=== PATIENT | female | born 1935 | race Caucasian/White ===

== ENCOUNTER → 2017-07-26 15:35 | Outpatient (CLI) | payer OTHER, SELFPAY ==
[2017-07-26 17:43] LABS: Absolute Lymphocyte Count 1.98 X10^3/ul (0.83-4.51); Absolute Neutrophil Count 2.1 X10^3/uL (2.0-7.7); Basophil# 0.03 X10^3/uL; Basophil% 0.6 % (0-1); Eosinophil# 0.15 X10^3/uL; Eosinophils% 3.1 % (0-5); Hematocrit 33.5 % (37-47); Hemoglobin 10.9 g/dl (12.0-15.0); Lymphocyte # 1.98 X10^3/ul (4.0); Lymphocyte % 41.1 % (19-41); Mean Corp Hgb Conc 32.5 g/gl (32-36); Mean Corpuscular Hgb 29.5 pg (27.0-32.0); Mean Corpuscular Volume 90.5 fL (81-99); Mean Platelet Vol. 10.5 fl (6.2-12.0); Monocyte# 0.59 X10^3/uL; Monocyte% 12.2 % (0-10); Neutrophil # 2.07 X10^3/uL (2.7-7.7); Platelet Count 172 K/mm3 (150-450); RBC Distribution Width CV 14.7 % (11.6-14.6); RBC Distribution Width SD 47.7 fl (35.1-43.9); White Blood Count 4.8 K/mm3 (4.4-11.0)
[2017-07-26 17:45] LABS: POSITIVE COUNT NO; POSITIVE DIFFERENTIAL NO; POSITIVE MORPHOLOGY NO
== END ==
PROVIDERS: Visit Provider Family Medicine
DX: D72.819 Decreased white blood cell count, unspecified (principal); D61.818 Other pancytopenia
CPT/HCPCS: 36415; 85025

== ENCOUNTER → 2017-08-26 06:34 | Outpatient (CLI) | payer OTHER, SELFPAY ==
--- NOTE | 2017-08-26 11:45 | STRESSREP ---
Stress Test Report Pharmacologic myocardial perfusion stress test. 82-year-old lady with a history of chest pain. Stress protocol: Resting EKG demonstrates normal sinus rhythm rate of 70 bpm. Resting blood pressure is 152/74 mmHg. 0.4 mg of regadenoson was infused per usual protocol followed by rapid intravenous saline flush injection. At rest there were no ST ST wave changes noted suggest ischemia at peak infusion no ST or T-wave changes were noted suggest ischemia. Resting blood pressure is 152/74 with a final blood pressure 142/70. No clinical angina was noted. Myocardial perfusion protocol. 11.4 mCi of technetium 99m sestamibi was injected at rest. 0.4 mg regadenoson was infused per usual protocol at peak infusion 33.8 mCi of technetium 99m sestamibi was injected. Stress images were obtained. Stress and rest images were reconstructed and compared in the short axis vertical long and horizontal long axis. Gated images were also obtained. Perfusion SPECT analysis: Review of the stress images demonstrate a normal cardiac silhouette size. There is uniform uptake of tracer noted in all areas of the myocardium. The resting images similarly demonstrate normal uptake of tracer noted in all areas of the myocardium. No previous infarct is noted no ischemia is present. Gated SPECT analysis: The gated ejection fraction is over 80%. Conclusion: Normal pharmacologic myocardial perfusion stress test. Preserved ejection fraction.
== END ==
PROVIDERS: Family Provider Family Medicine; PCP Family Medicine; Visit Provider Family Medicine
DX: I24.8 Other forms of acute ischemic heart disease (principal)
CPT/HCPCS: 78452; 93017; A9500; A4216; J2785

== ENCOUNTER 2017-11-25 19:10 | Observation (INO) | payer OTHER, SELFPAY ==
--- NOTE | 2017-11-25 11:34 | EKG12_ITS ---
Test Reason : MORNING EKG Blood Pressure : / mmHG Vent. Rate : 062 BPM Atrial Rate : 062 BPM P-R Int : 160 ms QRS Dur : 086 ms QT Int : 438 ms P-R-T Axes : 071 061 050 degrees QTc Int : 444 ms Normal sinus rhythm Normal ECG When compared with ECG of 24-JUN-2017 05:02, No significant change was found Confirmed by DENILSON CASTILLO, DAVID ([id number]), editor department SANDRA HICKMAN ([id number]) on 12/09/2017 10:45:53 AM Referred By: Confirmed By:DAVID OREILLY MD
--- NOTE | 2017-11-25 19:26 | CT_ITS ---
STUDY: CT BRAIN WITHOUT CONTRAST REASON FOR EXAM: Female, 82 years old. Syncope. RADIATION DOSAGE (If Supplied By Facility): CTDIvol = ( 44.99 ) mGy, DLP = ( 812.98 ) mGycm TECHNIQUE: Transaxial CT imaging of the brain was performed without administration of intravenous contrast material. Individualized dose optimization techniques were used for this CT. COMPARISON: July 05, 2015. FINDINGS: Normal soft tissue structures. Normal calvarium. There is arthritic change of the temporomandibular joints on the right more than the left. There is mild cerebral atrophy with widening of the extra-axial spaces and ventricular dilatation. Normal white matter tracts of the cerebral hemispheres. Normal basal ganglia and thalami. Normal brainstem. Normal cerebellum. There is no intracranial hemorrhage. There are no findings of an acute ischemic infarction. Normal visualized paranasal sinuses. CT/Brain/Head without Contrast IMPRESSION: Chronic involutional changes of the brain. No hemorrhage. Electronically Signed: Félix Gaviria MD at 8:53 EDT , Service support ,
--- NOTE | 2017-11-25 19:41 | RAD_ITS ---
STUDY: X-RAY CHEST REASON FOR EXAM: Female, 82 years old. Fall, found unresponsive TECHNIQUE: Single AP portable view of the chest. COMPARISON: None. FINDINGS: monitor and storage bin tender leads are present. There is a slightly prominent interstitial pattern of the lungs. Normal size heart. Normal mediastinum and nadeem. Normal visualized pulmonary arteries. There are calcified plaques of the aortic arch. There is a mild thoracic dextroscoliosis. Normal visualized ribs, clavicles, and shoulders. There is no demonstrated abnormality of the visualized soft tissue structures of the upper abdomen. RAD/Chest 1 View (Portable) IMPRESSION: Slightly prominent interstitial pattern of the lungs. Calcified plaques of the aortic arch. Mild thoracic dextro scoliosis. Electronically Signed: Ross Garrett MD at 20:05 EDT , Service support ,
--- NOTE | 2017-11-26 07:47 | DT_ITS ---
This patient was seen during an EMR downtime November 22, 2017 - November 29, 2017. This patient may have a combination of paper and electronic documentation or all paper documentation. All documentation is viewable within the e-chart portion of [facility] for each patient visit.
--- NOTE | 2017-11-26 11:39 | EKG12_ITS ---
Test Reason : SYNCOPE Blood Pressure : / mmHG Vent. Rate : 065 BPM Atrial Rate : 065 BPM P-R Int : 158 ms QRS Dur : 090 ms QT Int : 424 ms P-R-T Axes : 080 050 050 degrees QTc Int : 440 ms Normal sinus rhythm Normal ECG When compared with ECG of 24-JUN-2017 05:02, No significant change was found Confirmed by DENILSON CASTILLO, DAVID ([id number]), news assignment editor SANDRA HICKMAN ([id number]) on 12/09/2017 10:47:38 AM Referred By: SAY/ELENA Confirmed By:DAVID OREILLY MD
[2017-11-27 12:06] LABS: Lactic Acid 0.8 mmol/L (0.4-2.0)
[2017-11-27 12:08] LABS: Bacteria 0 SEEN /hpf (None Seen); Color, Urine Yellow (Yellow); Glucose, Dipstick NEGATIVE (Normal); Ketone-Dipstick 15 mg/dl (Negative); Leukocyte Esterase-Dipstick 25 /ul (Negative); Nitrite-Dipstick Negative (Negative); Occult Blood-Urine Negative /ul (Negative); Protein-Dipstick 30 mg/dl (Negative); Red Blood Cells-Urine 0 SEEN /hpf (0-5); Specific Gravity, Urine 1.015 (1.002-1.030); Squamous Epithelial Cells - UA 0 SEEN /hpf (5-10); Urine Bilirubin Dipstick Negative (Negative); Urine Clarity Clear (Clear); Urine Urobilinogen Normal (Normal); White Blood Cells 0-5 SEEN /hpf (0-5)
[2017-11-27 12:09] LABS: Hyaline Cast 5-10 SEEN /lpf (0-5); Mucous, Urine RARE /hpf (<or=2+)
[2017-11-27 12:10] LABS: BUN 17 mg/dL (7-18); BUN/Creat Ratio 16.5 RATIO (10-20); Creatinine, Serum 1.03 mg/dL (0.55-1.02); EST Glomerular Filtration Rate 55 mL/min (>60); Est Glom Filt Rate - Afr Amer 67 mL/min (>60); Glucose 103 mg/dL (74-106)
[2017-11-27 12:11] LABS: ALB/GLOB Ratio 0.9 RATIO (0.9-2.4); AST(SGOT) 21 U/L (15-37); Alanine Aminotransfer ALT/SGPT 24 U/L (13-56); Alkaline Phosphatase 107 U/L (45-117); Anion Gap 13 (5-15); Calcium,Total 9.2 mg/dL (8.5-10.1); Chloride 102 mmol/L (98-107); Globulin 4.3 g/dL (2.2-4.2); Lactic Acid 3.2 mmol/L (0.4-2.0); Potassium 3.5 mmol/L (3.5-5.1); Protein, Total 8.3 g/dL (6.4-8.2); Sodium Level 139 mmol/L (136-145)
[2017-11-27 13:51] LABS: Hematocrit 35.6 % (37-47); Hemoglobin 11.9 g/dl (12.0-15.0); Mean Corp Hgb Conc 33.4 g/gl (32-36); Mean Corpuscular Hgb 29.5 pg (27.0-32.0); Mean Corpuscular Volume 88.1 fL (81-99); Mean Platelet Vol. 10.7 fl (6.2-12.0); POSITIVE COUNT NO; POSITIVE DIFFERENTIAL NO; POSITIVE MORPHOLOGY NO; Platelet Count 222 K/mm3 (150-450); RBC Distribution Width CV 14.4 % (11.6-14.6); RBC Distribution Width SD 46.6 fl (35.1-43.9); Red Blood Count 4.04 M/mm3 (4.2-5.4); White Blood Count 6.2 K/mm3 (4.4-11.0)
[2017-11-27 13:52] LABS: Absolute Lymphocyte Count 2.01 X10^3/ul (0.83-4.51); Absolute Neutrophil Count 3.4 X10^3/uL (2.0-7.7); Basophil# 0.04 X10^3/uL; Basophil% 0.6 % (0-1); Eosinophil# 0.11 X10^3/uL; Eosinophils% 1.8 % (0-5); Lymphocyte # 2.01 X10^3/ul (4.0); Lymphocyte % 32.2 % (19-41); Monocyte# 0.69 X10^3/uL; Monocyte% 11.1 % (0-10); Neutrophil # 3.37 X10^3/uL (2.7-7.7)
[2017-11-27 13:53] LABS: International Normalized Ratio 0.9; Partial Thromboplast Time 31.4 Seconds (24.1-36.2); Prothrombin Time (Protime)PT. 11.9 SECONDS (11.7-14.9)
[2017-11-29 17:09] LABS: White Blood Count 5.3 K/mm3 (4.4-11.0)
[2017-11-29 17:10] LABS: Hematocrit 30.9 % (37-47); Hemoglobin 10.2 g/dl (12.0-15.0); Mean Corpuscular Volume 90.9 fL (81-99); Mean Platelet Vol. 10.9 fl (6.2-12.0); Platelet Count 200 K/mm3 (150-450); RBC Distribution Width CV 14.3 % (11.6-14.6); RBC Distribution Width SD 46.1 fl (35.1-43.9); Scan Indicated on CBC? Y/N NO
[2017-11-29 22:56] LABS: Anion Gap 7 (5-15); BUN 13 mg/dL (7-18); BUN/Creat Ratio 18.8 RATIO (10-20); Calcium,Total 8.4 mg/dL (8.5-10.1); Chloride 110 mmol/L (98-107); Cholesterol 269 mg/dL (200); Creatinine, Serum 0.69 mg/dL (0.55-1.02); EST Glomerular Filtration Rate 87 mL/min (>60); Est Glom Filt Rate - Afr Amer 105 mL/min (>60); Glucose 96 mg/dL (74-106); High Density Lipoprotein 74 mg/dL; Magnesium 2.4 mg/dL (1.6-2.6); Potassium 3.8 mmol/L (3.5-5.1); Sodium Level 143 mmol/L (136-145); Triglycerides 64 mg/dL; Very Low Density Lipoprotein 13 mg/dL (5-40)
== END 2017-11-26 20:40 | disposition home or self-care (01) ==
LOC: ED 11-26 07:46 → MS3 11-26 07:49
PROVIDERS: Admitting Provider Family Medicine; Emergency Provider Emergency Medicine; Family Provider Family Medicine; PCP Family Medicine; Visit Provider Family Medicine
DX: R55 Syncope and collapse (principal); R53.1 Weakness; E86.0 Dehydration; E87.2 Acidosis; F41.9 Anxiety disorder, unspecified; K21.9 Gastro-esophageal reflux disease without esophagitis; M16.7 Other unilateral secondary osteoarthritis of hip; E43 Unspecified severe protein-calorie malnutrition; K44.9 Diaphragmatic hernia without obstruction or gangrene
CPT/HCPCS: 36415; 70450; 71045; 80048; 80053; 80061; 81001; 83605; 83735; 84484; 85025; 85027; 85610; 85730; 87040; 87086; 93005; 96361; 96372; 96374; 97162; 97166; 97802; 99218; 99284; J7030; A4216; G0378; J2405

== ENCOUNTER 2018-01-12 07:09 | Inpatient (IN) | payer SELFPAY, OTHER ==
[2017-12-29 10:15] VITALS: BP 150/79; PULSE 66; RESP 16; TEMP 37.1; O2SAT 97; BMI 21.5
[2017-12-29 11:31] LABS: International Normalized Ratio 0.9; Prothrombin Time (Protime)PT. 12.2 SECONDS (11.7-14.9)
[2017-12-29 11:32] LABS: Partial Thromboplast Time 38.4 Seconds (24.1-36.2)
[2017-12-29 11:34] LABS: Absolute Lymphocyte Count 1.52 X10^3/ul (0.83-4.51); Basophil# 0.05 X10^3/uL; Basophil% 1.2 % (0-1); Eosinophils% 2.5 % (0-5); Hematocrit 34.9 % (37-47); Hemoglobin 11.3 g/dl (12.0-15.0); Lymphocyte # 1.52 X10^3/ul (4.0); Lymphocyte % 37.8 % (19-41); Mean Corp Hgb Conc 32.4 g/gl (32-36); Mean Corpuscular Hgb 29.3 pg (27.0-32.0); Mean Corpuscular Volume 90.4 fL (81-99); Mean Platelet Vol. 10.7 fl (6.2-12.0); Neutrophil # 1.95 X10^3/uL (2.7-7.7); Neutrophil % 48.5 % (47-70); Platelet Count 177 K/mm3 (150-450); RBC Distribution Width CV 14.5 % (11.6-14.6); RBC Distribution Width SD 47.9 fl (35.1-43.9); Red Blood Count 3.86 M/mm3 (4.2-5.4)
[2017-12-29 11:39] LABS: POSITIVE COUNT NO; POSITIVE DIFFERENTIAL NO; POSITIVE MORPHOLOGY NO
[2017-12-29 11:51] LABS: AST(SGOT) 20 U/L (15-37); Alanine Aminotransfer ALT/SGPT 22 U/L (13-56); Albumin, Serum 3.7 g/dL (3.2-5.0); Alkaline Phosphatase 84 U/L (45-117); Anion Gap 7 (5-15); BUN 10 mg/dL (7-18); BUN/Creat Ratio 14.7 RATIO (10-20); Bilirubin, Direct 0.08 mg/dL (0.00-0.30); Chloride 105 mmol/L (98-107); Creatinine, Serum 0.68 mg/dL (0.55-1.02); EST Glomerular Filtration Rate 88 mL/min (>60); Est Glom Filt Rate - Afr Amer 106 mL/min (>60); Globulin 4.2 g/dL (2.2-4.2); Glucose 91 mg/dL (74-106); Potassium 4.1 mmol/L (3.5-5.1); Protein, Total 7.9 g/dL (6.4-8.2); Sodium Level 142 mmol/L (136-145)
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
--- NOTE | 2018-01-07 13:31 | CASEMGMT ---
[place] CM preop phone call. Intro role of CM to patient via home phone. Pt is scheduled for Hip Replacement on 01/12/18. DC PLAN: Home with Outpt Therapy unless PT/OT recommends otherwise. DME: walker, cane Pt states she lives in 2 story home, has hand rails on stairs. and daughter are available and able to assist on dc. They will have transportation to therapy, however she does not know where therapy will be completed yet. Swapnil MALONEYN RN ACM
[2018-01-12] VITALS (10 sets, daily range): BP systolic 128–176; BP diastolic 65–88; PULSE 68–95; RESP 16–18; TEMP 36.4–37.3; O2SAT 96–100; BMI 21.5
[2018-01-12] MEDS: Acetaminophen 500 MG Tablet 1000 MG PO ×3 (07:56→21:19)
[2018-01-12] MEDS: oxyCODONE HCl Cr 10 MG Tablet PO (07:56)
[2018-01-12] MEDS: Lactated Ringers 1,000 ML 999 ML IV (08:15)
--- NOTE | 2018-01-12 08:43 | RAD_ITS ---
STUDY: X-RAY - PELVIS AND LEFT HIP REASON FOR EXAM: Female, 82 years old. Left hip replacement TECHNIQUE: Radiological exam, hip, unilateral, with pelvis when performed; 2 or 3 views. 3 intraoperative views COMPARISON: 12/30/2016 FINDINGS: 3 limited intraoperative C-arm films were performed of the left hip as patient is undergoing replacement surgery. Components demonstrate anatomic alignment. RAD/Hip 1 view with Pelvis IMPRESSION: 3 limited views of the left hip show anatomic alignment of components during hip replacement surgery Electronically Signed: Ted Campuzano MD at 15:01 EDT , Service support ,
[2018-01-12] MEDS: Heparin 10,000 UNITS/10 ML Vial 10000 UNITS (09:09)
--- NOTE | 2018-01-12 10:20 | OP.PCM_ITS ---
Report of Operation Date of Procedure: 01/12/18 Pre-Operative Diagnosis: Left hip primary osteoarthritis Post-Operative Diagnosis: Left hip primary osteoarthritis Surgery/Procedure Performed:: left DA CLAUDETTE Description of Surgical Findings:: stable hip with equal leg lengths furniture associate: Akhil Duvall Type of Anesthesia:: General Anesthesiologist: Juan Pablo Mason Special Medications: 2 g Ancef, 1 g TXA at incision, 1 g TXA closure, 10 mg Decadron, joint cocktail (5 mg Duramorph, 30 mL of 0.5% Ropivicaine, 1000 units of epinephrine, 30 mg of Toradol) Specimen's removed: Bony cuts Estimated Blood Loss (mL): 200 Fluids Replaced: 1300 ml crystalloin Description of Procedure: Components used: 1. Accolade 2 Jessica femoral stem size 2 127? 2. [place] trident acetabular shell size 48 mm 3. Jessica X3 polyethylene D 4. Jessica Biolox delta 36mm, -2.5mm femoral head Brief history operative indications: 82 yo F who failed conservative measures for their hip osteoarthritis. X-rays were consistent with osteoarthritis including joint space narrowing, osteophyte formation and subchondral cysts. Total hip replacement was discussed with the patient with risks and benefits including but not limited to blood loss, DVTs, PEs, neurovascular damage, dislocation, general risks of anesthesia including loss of life. Patient demonstrated an understanding medical clearance is obtained the patient was consented for surgery. Procedure: On the date of procedure the patient's L hip was marked in the preoperative area. Patient was then taken back to the operating room where anesthesia assumed control of the C-spine and airway and administered anesthetic. Patient was transferred to the operating table and placed in the supine position. The hips were placed at the break of the bed and a sacral bump was placed. The L lower extremity was then prepped out in a sterile fashion using chlorhexidine while the surgeon scrubbed. The PA was vital in the positioning of the patient. Upon reentering the room the L lower extremity was draped in the standard orthopedic fashion and the incision was marked. A timeout was called and everyone agreed upon the side, the site, the procedure be performed, antibody given, and patient's identity. At this time incision was made through skin, subcutaneous tissue, and fat down to fascia. The fascia was then incised and the TFL was retracted laterally. A retractor was placed on the lateral border of the femoral neck. Attention was directed to the inferior portion of the approach and all crossing vessels were identified and appropriately coagulated. A retractor was then placed on the medial portion of the femoral neck. The anterior capsule was then cleared of all soft tissue and then H shaped capsulotomy was made. The retractors were then placed inside the capsule. The femoral neck was identified and a cleanup cut was made. At this time a power corkscrew was used to remove the femoral head. Attention was then turned toward the acetabulum where the soft tissues were appropriately retracted and the acetabulum was sequentially reamed to 49 mm. A 50 mm cup was then selected and impacted into place. Acetabular liner was impacted into place and locking mechanism was verified. The position of the acetabular cup was then verified under live fluoroscopy. Attention was then turned to the femur. Soft tissue releases on the medial and lateral femoral neck were appropriately done, the leg was externally rotated and lateralized. A Bo retractor was placed medially and proximally to the greater trochanter this allowed appropriate visualization and exposure of the femoral canal. Rongeour was then used to remove excess lateral bone. A canal finder and entry broach were used to open the proximal canal. Once we verified we were down the femoral canal we subsequently broached up to a size 2 femur. The appropriate neck was placed in the previously selected head was trialed with a -2.5 mm neck. Traction was pulled and the hip was reduced with internal rotation. Once it was appropriately reduced and stability was checked. There was minimal shuck, equal leg lengths and appropriate stability with hyperextension and external rotation as well as with 90? flexion and internal rotation. Fluoroscopy was then also used to verify the position of the components and leg lengths using the contralateral side for comparison. The trial components were then dislocated the proximal femur was again exposed and the components were removed from the wound. The final components were verified and opened. The wound was copiously irrigated out with normal saline. The acetabulum was checked for any residual debris. The final components were placed and impacted. Traction and internal rotation were again used to reduce the hip. After adequate reduction the hip remained stable with appropriate leg lengths. The final components were once again checked with live fluoroscopy and were found to be satisfactory. The wound was then copiously irrigated with normal saline once more, and hemostasis was obtained. Closure was then done using #1 Vicryl runner to close the fascia. A 2-0 vicryl interuppted sutures were used to close the subcutaneous skin. A 3-0 Monocryl and Steri-Strips were used for final skin closure. A Silverlon dressing was placed. Patient was awakened by anesthesia and transferred to the [facility]. Patient was then transferred to the PACU for recovery. Postoperative plan: Patient will get 24 hours postop antibiotics. Patient will get in-house physical therapy and will be weight-bear as tolerated. Patient will follow up in office in 2 weeks for a wound check and x-rays. Patient is a hemophiliac. Aggressive hemostasis was performed during surgery. We also used the Cell Saver. Based on risk assessment I have elected not to anticoagulate the patient postoperatively as she has a history of blood transfusions from minor surgeries. During the course of the procedure the physician technician assistant played a vital role. His intimate knowledge of my steps in the procedure aided in safe and expedient completion of the procedure. The PA played a vital rolls in positioning particularly in obtaining the appropriate positioning of the sacral bump. The PA was also vital in the retraction of soft tissues during the exposure and especially the femoral work as this is a vital part of the procedure to prevent complications and fractures. The PA was also vital and protecting soft tissues during times of bony cuts and reaming. He also played a vital role in closure with my direct supervision. The PA was also important during reduction and dislocation of the joint and trials intraoperatively. Grafts/Implants Used: jessica accolade 2 - Complications none - Admit VTE Documentation VTE Present on Admission: No VTE Mechan Device Prophylaxis: SCD's VTE Pharm Prophylaxis ordered?: No Reason prophylaxis not ordered:: Medical Contraindication - pt is hemapheliac
--- NOTE | 2018-01-12 10:50 | RAD_ITS ---
STUDY: X-RAY - PELVIS AND left HIP REASON FOR EXAM: Female, 82 years old. Replacement surgery TECHNIQUE: Radiological exam, hip, unilateral, with pelvis when performed; 2 or 3 views. 2 views. COMPARISON: 12/30/2016 FINDINGS: Patient is status post left hip replacement surgery.. Components demonstrate anatomic alignment. No plain film evidence of postoperative complication. Normal postoperative soft tissue swelling and subcutaneous emphysema noted. RAD/Hip Min 2 Views (Portable) IMPRESSION: Replaced left hip joint demonstrates anatomic alignment. No plain film evidence of postoperative complication Electronically Signed: Ted Campuzano MD at 11:23 EDT , Service support ,
[2018-01-12] MEDS: Lactated Ringers 1,000 ML 125 ML IV ×2 (11:04→16:45)
[2018-01-12] MEDS: Scopolamine 1mg/72hr Patch 1 PATCH TD (11:04)
[2018-01-12] MEDS: Calcium Carbonate 500 MG Tablet PO (16:44)
[2018-01-12] MEDS: Senna/Docusate Sodium 1 Tablet 2 TABLET PO ×2 (16:45→21:19)
[2018-01-12] MEDS: Famotidine 20 MG Tablet PO (16:45)
[2018-01-12] MEDS: CLARIFY ORDER NOTE (18:32)
--- NOTE | 2018-01-12 19:08 | PCM.PN.HOSP ---
Subjective: No pain at this time. Vitals/I&O's: Vital Signs Temp Pulse Resp BP Pulse Ox 37.1 C 68 18 142/67 H 100 01/12/18 16:08 01/12/18 16:08 01/12/18 16:08 01/12/18 16:08 01/12/18 16:08 Oxygen Flow Rate (L/min) 2 Oxygen Delivery Method Room Air Weight: 55.2 kg Body Mass Index (BMI) 21.5 Intake and Output for Last 24 Hours 01/10/18 01/11/18 01/12/18 23:59 23:59 23:59 Intake Total 1999 / 1999 Output Total 600 / 600 Balance 1400 / 1400 General: Alert, No apparent distress HEENT: Atraumatic, Normocephalic Oral: Moist Mucosa, No Gingival or Mucosal Lesions/ Ulcerations Neck: No Nodes, Thyroid Normal Size and Texture Lungs: Clear to auscultation, Normal air movement, No rhonchi, No wheeze Cardiovascular: Regular rate, Regular Rhythm, Normal S1, Normal S2, No murmurs Abdomen: Bowel Sounds Present, Soft, Non Tender, Non-Distended, No Hepato-splenomegaly Extremities: No edema, No Calf Tenderness Skin: No rashes, No breakdown Musculoskeletal: No Tenderness to Palpation of Joints or Extremities, No Muscle Wasting Psych/Mental Status: Normal Affect, Appropriate Current Medications Acetaminophen (Tylenol) 1,000 mg PO Q8 [facility] Last Admin: 01/12/18 16:44 Dose: 1,000 mg Calcium Carbonate (Tums) 500 mg PO DAILYCM [facility] Last Admin: 01/12/18 16:44 Dose: 500 mg Famotidine (Pepcid) 20 mg PO DAILY [facility] Last Admin: 01/12/18 16:45 Dose: 20 mg Lactated Ringer's () 1,000 mls @ 125 mls/hr IV .Q8H [facility] Last Admin: 01/12/18 16:45 Dose: 125 mls/hr Clindamycin Phosphate 600 mg/ (Dextrose) 54 mls @ 100 mls/hr IV Q6H [facility] Stop: 01/13/18 03:33 Last Admin: 01/12/18 16:47 Dose: 100 mls/hr Ketorolac Tromethamine (Toradol) 15 mg IV Q6H PRN PRN PRN Reason: MILD-MOD PAIN (1-5/10) Non-Formulary Medication (Sertraline Hcl [Zoloft]) 12.5 mg PO DAILY [facility] Nutritional Formula (Lactose Free) (Ensure Clear) 120 ml PO TIDCM [facility] Last Admin: 01/12/18 16:48 Dose: 120 ml Ondansetron HCl (Zofran) 4 mg IV Q8H PRN PRN PRN Reason: NAUSEA Oxycodone HCl (Oxyir) 5 - 10 mg PO Q4H PRN PRN PRN Reason: MOD-SEVERE PAIN (4-10) Senna/Docusate Sodium (Senokot-S, Bianca-Colace) 2 tablet PO BID [facility] Last Admin: 01/12/18 16:45 Dose: 2 tablet Medical Necessity - Tobacco Use Smoking Status: Never smoker Tobacco Use: Non-smoker Assessment/Plan All Active Problems Demand ischemia (Acute) Lactic acidosis (Acute) Hypokalemia (Acute) Metabolic acidosis (Acute) Sepsis (Ruled-out) 1. Status post left hip replacement Management per orthopedics 2. DVT prophylaxis Per orthopedics No active medical issues at this time. Despite the patient's age, she is a very healthy individual and I do not anticipate any active medical setbacks during the course of her hospitalizations. The hospitalist service will be available in case any events do occur. Patient is currently medically stable, and very comfortable, at this time. Code Visit Inpatient E&M: 75813 Subs Hosp L2
--- NOTE | 2018-01-12 19:11 | PN_ITS ---
Subjective: No pain at this time. Vitals/I&O's: Vital Signs Temp Pulse Resp BP Pulse Ox 37.1 C 68 18 142/67 H 100 01/12/18 16:08 01/12/18 16:08 01/12/18 16:08 01/12/18 16:08 01/12/18 16:08 Oxygen Flow Rate (L/min) 2 Oxygen Delivery Method Room Air Weight: 55.2 kg Body Mass Index (BMI) 21.5 Intake and Output for Last 24 Hours 01/10/18 01/11/18 01/12/18 23:59 23:59 23:59 Intake Total 1999 / 1999 Output Total 600 / 600 Balance 1400 / 1400 General: Alert, No apparent distress HEENT: Atraumatic, Normocephalic Oral: Moist Mucosa, No Gingival or Mucosal Lesions/ Ulcerations Neck: No Nodes, Thyroid Normal Size and Texture Lungs: Clear to auscultation, Normal air movement, No rhonchi, No wheeze Cardiovascular: Regular rate, Regular Rhythm, Normal S1, Normal S2, No murmurs Abdomen: Bowel Sounds Present, Soft, Non Tender, Non-Distended, No Hepato- splenomegaly Extremities: No edema, No Calf Tenderness Skin: No rashes, No breakdown Musculoskeletal: No Tenderness to Palpation of Joints or Extremities, No Muscle Wasting Psych/Mental Status: Normal Affect, Appropriate Current Medications Acetaminophen (Tylenol) 1,000 mg PO Q8 COUNTS INCLUDE 234 BEDS AT THE [facility] Last Admin: 01/12/18 16:44 Dose: 1,000 mg Calcium Carbonate (Tums) 500 mg PO DAILYCM COUNTS INCLUDE 234 BEDS AT THE [facility] Last Admin: 01/12/18 16:44 Dose: 500 mg Famotidine (Pepcid) 20 mg PO DAILY COUNTS INCLUDE 234 BEDS AT THE [facility] Last Admin: 01/12/18 16:45 Dose: 20 mg Lactated Ringer's () 1,000 mls @ 125 mls/hr IV .Q8H COUNTS INCLUDE 234 BEDS AT THE [facility] Last Admin: 01/12/18 16:45 Dose: 125 mls/hr Clindamycin Phosphate 600 mg/ (Dextrose) 54 mls @ 100 mls/hr IV Q6H COUNTS INCLUDE 234 BEDS AT THE [facility] Stop: 01/13/18 03:33 Last Admin: 01/12/18 16:47 Dose: 100 mls/hr Ketorolac Tromethamine (Toradol) 15 mg IV Q6H PRN PRN PRN Reason: MILD-MOD PAIN (1-5/10) Non-Formulary Medication (Sertraline Hcl [Zoloft]) 12.5 mg PO DAILY COUNTS INCLUDE 234 BEDS AT THE [facility] Nutritional Formula (Lactose Free) (Ensure Clear) 120 ml PO TIDCM COUNTS INCLUDE 234 BEDS AT THE [facility] Last Admin: 01/12/18 16:48 Dose: 120 ml Ondansetron HCl (Zofran) 4 mg IV Q8H PRN PRN PRN Reason: NAUSEA Oxycodone HCl (Oxyir) 5 - 10 mg PO Q4H PRN PRN PRN Reason: MOD-SEVERE PAIN (4-10) Senna/Docusate Sodium (Senokot-S, Bianca-Colace) 2 tablet PO BID COUNTS INCLUDE 234 BEDS AT THE [facility] Last Admin: 01/12/18 16:45 Dose: 2 tablet Medical Necessity - Tobacco Use Smoking Status: Never smoker Tobacco Use: Non-smoker Assessment/Plan All Active Problems Demand ischemia (Acute) Lactic acidosis (Acute) Hypokalemia (Acute) Metabolic acidosis (Acute) Sepsis (Ruled-out) 1. Status post left hip replacement * Management per orthopedics 2. DVT prophylaxis * Per orthopedics No active medical issues at this time. Despite the patient's age, she is a very healthy individual and I do not anticipate any active medical setbacks during the course of her hospitalizations. The hospitalist service will be available in case any events do occur. Patient is currently medically stable, and very comfortable, at this time. Code Visit Inpatient E&M: 23558 Subs Hosp L2
[2018-01-13 02:35] VITALS: BP 139/70; PULSE 67; RESP 18; TEMP 37.3; O2SAT 95
[2018-01-13] MEDS: Ketorolac 15 MG/ML Vial IV ×2 (04:26→10:47)
[2018-01-13] MEDS: Acetaminophen 500 MG Tablet 1000 MG PO ×3 (06:19→21:59)
[2018-01-13 06:24] LABS: Hematocrit 26.4 % (37-47); Hemoglobin 8.6 g/dl (12.0-15.0); Mean Corp Hgb Conc 32.6 g/gl (32-36); Mean Corpuscular Hgb 29.8 pg (27.0-32.0); Mean Corpuscular Volume 91.3 fL (81-99); Mean Platelet Vol. 10.9 fl (6.2-12.0); Platelet Count 169 K/mm3 (150-450); RBC Distribution Width CV 13.7 % (11.6-14.6); RBC Distribution Width SD 44.6 fl (35.1-43.9); Red Blood Count 2.89 M/mm3 (4.2-5.4); White Blood Count 4.7 K/mm3 (4.4-11.0)
[2018-01-13 06:44] LABS: Scan Indicated on CBC? Y/N NO
[2018-01-13 07:12] LABS: Anion Gap 8 (5-15); BUN 8 mg/dL (7-18); BUN/Creat Ratio 10.9 RATIO (10-20); Calcium,Total 8.3 mg/dL (8.5-10.1); Chloride 108 mmol/L (98-107); Creatinine, Serum 0.74 mg/dL (0.55-1.02); EST Glomerular Filtration Rate 81 mL/min (>60); Est Glom Filt Rate - Afr Amer 98 mL/min (>60); Glucose 96 mg/dL (74-106); Potassium 3.8 mmol/L (3.5-5.1); Sodium Level 143 mmol/L (136-145)
[2018-01-13 08:35] VITALS: BP 111/85; PULSE 63; RESP 18; TEMP 37.6; O2SAT 100
--- NOTE | 2018-01-13 09:50 | PN.ORTHO_ITS ---
Subjective: The patient was in physical therapy upon examination. Patient denies any chest pain, shortness of breath, dizziness, lightheadedness, nausea or vomiting, or calf pain. Pain is controlled on medications. No adverse overnight events. Patient's daughter was present upon examination. Patient's daughter states she began having some confusion late last night. Patient's daughter also states she has had some underlying confusion prior to surgery which was not disclosed prior to surgery. Patient's pain is well controlled at this time. Objective: Vital signs stable and afebrile. Patient is able to plantarflex and dorsiflex actively. Sensation is intact to light touch to saphenous, sural, superficial and deep peroneal, and tibial distribution. Dressing is clean dry and intact. Negative Homans bilaterally, negative signs and symptoms of DVT. - Physical Exam General: Alert, Oriented x3, Cooperative, No apparent distress Vital Signs Temp Pulse Resp BP Pulse Ox 99.2 F H 67 18 139/70 H 95 01/13/18 02:35 01/13/18 02:35 01/13/18 02:35 01/13/18 02:35 01/13/18 02:35 Oxygen Flow Rate (L/min) 2 Oxygen Delivery Method Room Air Weight: 55.2 kg Body Mass Index (BMI) 21.5 Intake and Output for Last 24 Hours 01/11/18 01/12/18 01/13/18 23:59 23:59 23:59 Intake Total 2873 / 2873 411 / 411 Output Total 600 / 600 Balance 2273 / 2273 411 / 411 Laboratory Tests Past 24 Hrs 01/13/18 01/13/18 05:44 05:44 WBC 4.7 RBC 2.89 L Hgb 8.6 L Hct 26.4 L MCV 91.3 MCH 29.8 MCHC 32.6 RDW 13.7 RDW Differential 44.6 H Plt Count 169 MPV 10.9 Sodium 143 Potassium 3.8 Chloride 108 H Carbon Dioxide 27.0 Anion Gap 8 BUN 8 Creatinine 0.74 Estim Creat Clear Calc 36.50 Est GFR (MDRD) Af Amer 98 Est GFR (MDRD) Non-Af 81 BUN/Creatinine Ratio 10.9 Glucose 96 Calcium 8.3 L Medical Necessity - Tobacco Use Smoking Status: Never smoker Tobacco Use: Non-smoker Assessment/Plan All Active Problems Demand ischemia (Resolved) Lactic acidosis (Resolved) Hypokalemia (Resolved) Metabolic acidosis (Resolved) Sepsis (Ruled-out) 1. S/P left total hip arthroplasty direct anterior approach POD #1 2. Continue Pain Medications: Tylenol, oxycodone was stopped due to confusion. Tramadol order was placed, use sparingly only if needed. 3. DVT Prophylaxis: Due to patient's history no anticoagulation will be used postoperatively due to previous history of blood transfusions from minor surgeries and family history of hemophilia. Continue with SCDs while in hospital. 4. PT/OT: Weightbearing as tolerated 5. H & H: 8.6/26.4, asymptomatic 6. Encouraged Incentive Spirometry 7. Continue postoperative medical management per medicine: Discussed case with hospitalist 8. Postoperative confusion: After discussion with the patient's daughter today , it was disclosed patient did have some underlying confusion/forgetfullness prior to surgery. I do feel current confusion may have been increased secondary to surgery, anesthesia, and pain medications. Oxycodone has been stopped and will only use tramadol sparingly as needed for pain. 9. Disposition: Plan will be for possible discharge home today versus tomorrow if pain is well controlled and patient tolerates physical therapy. Case management did discuss options with family. Family states they will be there to help her out and did not want any placement into half-way facility or rehabilitation. Prescriptions are attached to chart. Patient will follow-up per [facility] postop instructions.
--- NOTE | 2018-01-13 10:01 | PCM.DC.THR ---
Discharge Diet: No Restrictions Discharge Activity: May Not Drive - while taking narcotic pain medications. May shower in (days): 1 - only if incision is dry and without drainage. Do NOT soak/submerge in tub/pool/goldstein/stream/hot tub. Ice area for (Minutes): 20 - Every 1-2 hours while awake Weight Bearing Status: Weight bearing as tolerated Elevate: Operative Extremity Additional Activity Instructions:: Wear elastic stockings for 2 weeks. DO NOT use alcohol with narcotic pain medication. DO NOT make important decisions while taking narcotic medication. If you have problems with taking your medication (rash, itching, nausea, etc.) call the office at once. Call your doctor if your incision/area has: Increased Pain/ Swelling, Increased Redness, Foul Smelling Discharge Call your doctor if you observe: Fever of 101 or Higher Remove Dressing in (days):: 3 - Okay to remove on January 17, 2018 Additional Instructions: Follow [facility] postop instructions May resume [id number] vitamins and supplements 2 weeks postoperatively Allergies/Adverse Reactions: Allergies aspirin Adverse Reaction (Verified 12/29/17 10:04) Unknown buspirone HCl [From BuSpar] Adverse Reaction (Verified 12/29/17 10:04) Unknown butalbital [From Esgic] Adverse Reaction (Verified 12/29/17 10:04) Unknown caffeine [From Norgesic] Adverse Reaction (Verified 12/29/17 10:04) Unknown diazepam [From Valium] Adverse Reaction (Verified 12/29/17 10:04) Unknown doxycycline Adverse Reaction (Verified 12/29/17 10:04) Unknown erythromycin base Adverse Reaction (Verified 12/29/17 10:04) Unknown NSAIDS (Non-Steroidal Anti-Inflamma Adverse Reaction (Verified 12/29/17 10:04) Unknown orphenadrine citrate [From Norgesic] Adverse Reaction (Verified 12/29/17 10:04) Unknown Penicillins Adverse Reaction (Verified 12/29/17 10:04) Unknown promethazine HCl [From Phenergan] Adverse Reaction (Verified 12/29/17 10:04) Unknown Sulfa (Sulfonamide Antibiotics) Adverse Reaction (Verified 12/29/17 10:04) Unknown valdecoxib [From Bextra] Adverse Reaction (Verified 12/29/17 10:04) Unknown Medications to take at Discharge Sertraline HCl [Zoloft] 12.5 mg PO DAILY 10/09/14 Calcium Carbonate [Calcium] 500 mg PO DAILY 12/29/17 Acetaminophen [Tylenol] 1,000 mg PO Q8 #90 tab 01/13/18 Senna/Docusate Sodium [Senokot-S] 2 tab PO BID #20 tab 01/13/18 traMADol [Ultram] 50 - 100 mg PO Q6H PRN PRN #30 tab 01/13/18 The following prescriptions were given: traMADol [Ultram] 50 - 100 mg PO Q6H PRN PRN #30 tab PRN Reason: Moderate Pain (4-5/10) Acetaminophen [Tylenol] 1,000 mg PO Q8 #90 tab Senna/Docusate Sodium [Senokot-S] 2 tab PO BID #20 tab Primary Care Physician: Robinson Young DO [Primary Care Provider] - Test Results: Test results from this visit will be discussed in further detail at your follow-up appointment, if applicable. Please Follow Up With: [facility] When: 01/17/18 @ 10:30 am with [facility] Please Follow Up With: Roderick Arevalo PA-C When: 01/26/18 @ 9:00 am
--- NOTE | 2018-01-13 10:34 | CASEMGMT ---
Social Work Note Temo ARMSTRONG requesting to have this worker talk to pt and her daughter that is currently present in room. Temo states that pt currently has some confusion and has a history of confusion. SW in to meet with pt. SW introduced self and role at [facility]. Pt and daughter states that they wish to have pt discharge home. SW informed pt that some rehabilitation before returning home could be beneficial. This SW educated pt and pt's daughter on SNF and pt's daughter and pt denied SNF at this time. Pt's daughter states that she wishes to have pt complete outpatient therapy at discharge and asked if HHC with PT/OT could be an option but was concerned if HHC with PT/OT would be more expensive. This SW informed pt's daughter that HHC PT/OT would be more expensive and pt is already set up with outpatient therapy at [facility]. Pt's daughter states understanding. Mary, Charlie Middleton, updated this worker that she will be providing pt and pt's daughter with [facility] self-pay prices. Mary states that she will be giving pt information on DME company in [place] that can assist with Charlie getting DME at home. Mary also informed this worker that there is a Home Health Company in [place] called [facility] that work with Charlie to provide discount services of HHC. Mary states that she will also update the pt and her daughter of this. Plan: Pt to discharge home with support of family and outpatient therapy at [facility]. Daisha Nunn ASSISTANT CITY ATTORNEY, READING AIDE
[2018-01-13] MEDS: Senna/Docusate Sodium 1 Tablet 2 TABLET PO ×2 (10:41→21:59)
[2018-01-13] MEDS: Calcium Carbonate 500 MG Tablet PO (10:41)
[2018-01-13] MEDS: Famotidine 20 MG Tablet PO (10:42)
[2018-01-13 16:20] VITALS: BP 116/46; PULSE 73; RESP 18; TEMP 37.7; O2SAT 99
--- NOTE | 2018-01-13 18:48 | PCM.PROGNOTE ---
Subjective: Patient seen and examined today, she exhibits mild confusion, I talked with her daughter and her daughter is not comfortable with her going home today. Family requested that the patient receive something to help her relax late this afternoon, I have written for low-dose Xanax every 6 hours as needed. Daughter states that the patient exhibits some forgetfulness and confusion at home at times - Physical Exam General: Alert, Oriented x3, Cooperative, No apparent distress, Well developed, Confused - Patient exhibits mild confusion HEENT: Atraumatic, PERRLA, EOMI, Normocephalic Neck: Supple, No JVD, No Nuchal Rigidity, Trachea Midline, Thyroid Normal Size and Texture Lungs: Clear to auscultation, Normal air movement, No rhonchi, No wheeze, No rales Cardiovascular: Regular rate, Regular Rhythm, Normal S1, Normal S2, No murmurs, No Ectopic Activity, PMI Normal, No rub noted, No Gallop Abdomen: Bowel Sounds Present, Soft, Non Tender, Non-Distended, No hernias noted Extremities: No edema Skin: No rashes Neurological: Cranial nerves II-XII grossly intact, Neuro grossly intact, Sensory exam intact to light touch and pain, Coordination normal Psych/Mental Status: Normal Affect, - - Patient exhibits mild confusion, she is not agitated Vital Signs Temp Pulse Resp BP Pulse Ox 99.9 F H 73 18 116/46 L 99 01/13/18 16:20 01/13/18 16:20 01/13/18 16:20 01/13/18 16:20 01/13/18 16:20 Oxygen Flow Rate (L/min) 2 Oxygen Delivery Method Room Air Weight: 55.2 kg Body Mass Index (BMI) 21.5 Intake and Output for Last 24 Hours 01/11/18 01/12/18 01/13/18 23:59 23:59 23:59 Intake Total 2873 / 2873 651 / 651 Output Total 600 / 600 Balance 2273 / 2273 651 / 651 Laboratory Tests Past 24 Hrs 01/13/18 01/13/18 05:44 05:44 WBC 4.7 RBC 2.89 L Hgb 8.6 L Hct 26.4 L MCV 91.3 MCH 29.8 MCHC 32.6 RDW 13.7 RDW Differential 44.6 H Plt Count 169 MPV 10.9 Sodium 143 Potassium 3.8 Chloride 108 H Carbon Dioxide 27.0 Anion Gap 8 BUN 8 Creatinine 0.74 Estim Creat Clear Calc 36.50 Est GFR (MDRD) Af Amer 98 Est GFR (MDRD) Non-Af 81 BUN/Creatinine Ratio 10.9 Glucose 96 Calcium 8.3 L Medical Necessity - Tobacco Use Smoking Status: Never smoker Tobacco Use: Non-smoker Assessment/Plan All Active Problems Demand ischemia (Resolved) Lactic acidosis (Resolved) Hypokalemia (Resolved) Metabolic acidosis (Resolved) Sepsis (Ruled-out) #1 pulmonary hypertension-currently not a significant medical problem which needs addressed #2 osteoarthritis #3 anxiety-patient is on Zoloft #4 postop day #1 left direct anterior total hip arthroplasty #5 suspected mild dementia-patient's daughter lives with the patient and will help with her postop care Code Visit Inpatient E&M: 73284 Subs Hosp L2
[2018-01-13 20:30] VITALS: BP 119/59; PULSE 73; RESP 18; TEMP 37.6; O2SAT 96
--- NOTE | 2018-01-13 21:01 | NURSING ---
Family in at bedside and requesting that patient have xanax. This RN discussed with the daughter about confusion post-op and ways to try and reduce the confusion. Daughter still wants to try xanax. This RN stated that she would give the xanax later in the shift with her HS meds. Daughter remains in at bedside, bed alarm on.
[2018-01-13] MEDS: ALPRAZolam 0.25 MG Tablet PO (21:59)
--- NOTE | 2018-01-14 00:29 | NURSING ---
This Nurse received a call from Augustina Benavides (pts daughter) wanting staff to keep patient comfortable. Daughter reports that the patient was restless when family left. This information relayed to Charge Nurse Pawan Gutierrez. Ativan had been given . Stefany Bolivar BSN ,Engineering Assistant.
[2018-01-14] MEDS: Ketorolac 15 MG/ML Vial IV (01:32)
[2018-01-14 05:30] VITALS: BP 137/82; PULSE 70; RESP 18; TEMP 36.6; O2SAT 96
[2018-01-14] MEDS: Acetaminophen 500 MG Tablet 1000 MG PO (05:33)
[2018-01-14 06:19] LABS: Hematocrit 27.1 % (37-47); Hemoglobin 8.9 g/dl (12.0-15.0); Mean Corp Hgb Conc 32.8 g/gl (32-36); Mean Corpuscular Hgb 29.5 pg (27.0-32.0); Mean Corpuscular Volume 89.7 fL (81-99); Mean Platelet Vol. 10.1 fl (6.2-12.0); Platelet Count 155 K/mm3 (150-450); RBC Distribution Width CV 14.4 % (11.6-14.6); RBC Distribution Width SD 47.5 fl (35.1-43.9); Red Blood Count 3.02 M/mm3 (4.2-5.4); White Blood Count 5.4 K/mm3 (4.4-11.0)
[2018-01-14 06:37] LABS: Scan Indicated on CBC? Y/N NO
--- NOTE | 2018-01-14 06:53 | PN.ORTHO_ITS ---
Subjective: The patient was sitting in bed upon examination. Patient denies any chest pain , shortness of breath, dizziness, lightheadedness, nausea or vomiting, or calf pain. Pain is controlled on medications. No adverse overnight events. Patient 's family member present during evaluation. Patient's family member states she feels she is doing better last night and this morning. Plan is for them to be discharged home today. Objective: Vital signs stable and afebrile. Patient is able to plantarflex and dorsiflex actively. Sensation is intact to light touch to saphenous, sural, superficial and deep peroneal, and tibial distribution. Dressing is clean dry and intact. Negative Homans bilaterally, negative signs and symptoms of DVT. - Physical Exam General: Alert, Oriented x3, Cooperative, No apparent distress Vital Signs Temp Pulse Resp BP Pulse Ox 97.8 F 70 18 137/82 H 96 01/14/18 05:30 01/14/18 05:30 01/14/18 05:30 01/14/18 05:30 01/14/18 05:30 Oxygen Flow Rate (L/min) 2 Oxygen Delivery Method Room Air Weight: 55.2 kg Body Mass Index (BMI) 21.5 Intake and Output for Last 24 Hours 01/12/18 01/13/18 01/14/18 23:59 23:59 23:59 Intake Total 2873 / 2873 1151 / 1151 240 / 240 Output Total 600 / 600 Balance 2273 / 2273 1151 / 1151 240 / 240 Laboratory Tests Past 24 Hrs 01/13/18 01/14/18 05:44 05:36 WBC 5.4 RBC 3.02 L Hgb 8.9 L Hct 27.1 L MCV 89.7 MCH 29.5 MCHC 32.8 RDW 14.4 RDW Differential 47.5 H Plt Count 155 MPV 10.1 Sodium 143 Potassium 3.8 Chloride 108 H Carbon Dioxide 27.0 Anion Gap 8 BUN 8 Creatinine 0.74 Estim Creat Clear Calc 36.50 Est GFR (MDRD) Af Amer 98 Est GFR (MDRD) Non-Af 81 BUN/Creatinine Ratio 10.9 Glucose 96 Calcium 8.3 L Medical Necessity - Tobacco Use Smoking Status: Never smoker Tobacco Use: Non-smoker Assessment/Plan All Active Problems Demand ischemia (Resolved) Lactic acidosis (Resolved) Hypokalemia (Resolved) Metabolic acidosis (Resolved) Sepsis (Ruled-out) 1. S/P left total hip arthroplasty direct anterior approach POD #2 2. Continue Pain Medications: Tylenol, oxycodone was stopped due to confusion. Currently using tramadol, use sparingly only if needed. 3. DVT Prophylaxis: Due to patient's history no anticoagulation will be used postoperatively due to previous history of blood transfusions from minor surgeries and family history of hemophilia. Continue with SCDs while in hospital. 4. PT/OT: Weightbearing as tolerated 5. H & H: 8.9/27.1, asymptomatic 6. Encouraged Incentive Spirometry 7. Continue postoperative medical management per medicine: Discussed case with hospitalist 8. Postoperative confusion: it was disclosed by family member that patient did have some underlying confusion/forgetfullness prior to surgery. Per patient 's family member, they feel she has improved since yesterday. Oxycodone has been stopped and will only use tramadol sparingly as needed for pain. 9. Disposition: Plan will be for discharge home today. Case management did discuss options with family. Family states they will be there to help her out and did not want any placement into shelter facility or rehabilitation. Prescriptions are attached to chart. Patient will follow-up per [facility] postop instructions.
[2018-01-14 08:05] VITALS: BP 127/54; PULSE 70; RESP 18; TEMP 37; O2SAT 95
[2018-01-14] MEDS: Calcium Carbonate 500 MG Tablet PO (08:08)
[2018-01-14] MEDS: Senna/Docusate Sodium 1 Tablet 2 TABLET PO (08:08)
[2018-01-14] MEDS: Famotidine 20 MG Tablet PO (08:08)
== END 2018-01-14 09:32 | disposition home or self-care (01) | DRG 470 ==
LOC: ACINP 07:12 → MS3 09:54
PROVIDERS: Admitting Provider Specialist; Family Provider Family Medicine; PCP Family Medicine; Visit Provider Internal Medicine
PROC: 0SRB04Z Replacement of Left Hip Joint with Ceramic on Polyethylene Synthetic Substitute, Open Approach (ICD-10-PCS; CPT 27284; principal; 2018-01-12 08:35)
DX: M16.12 Unilateral primary osteoarthritis, left hip (principal); R41.0 Disorientation, unspecified; F41.9 Anxiety disorder, unspecified; I27.20 Pulmonary hypertension, unspecified; E78.00 Pure hypercholesterolemia, unspecified; Z83.2 Family history of diseases of the blood and blood-forming organs and certain disorders involving the immune mechanism; F32.9 Major depressive disorder, single episode, unspecified; G25.81 Restless legs syndrome
CPT/HCPCS: 36415; 73501; 73502; 76000; 80048; 80076; 85025; 85027; 85610; 85730; 87081; 97116; 97162; 97165; 97530; 97535; C1776; J7120; A4216; J2405

== ENCOUNTER → 2018-05-19 10:03 | Outpatient (CLI) | payer SELFPAY, OTHER ==
[2018-01-12 12:08] VITALS: BMI 21.5
--- NOTE | 2018-05-19 10:09 | RAD_ITS ---
STUDY: X-RAY - ABDOMEN/PELVIS REASON FOR EXAM: Female, 82 years old. Bloating and constipation for couple weeks. TECHNIQUE: Single AP view of the abdomen / pelvis. COMPARISON: 10/19/2016 FINDINGS: Single mild elevation of the right hemidiaphragm, costochondral calcification and osteopenia. Air distention of colon without obstructive pattern. No significant amount of retained fecal material. There is no demonstrated free abdominal air. The visualized liver, spleen and kidneys are grossly normal in size and morphology. Normal soft tissue structures. There are diffuse degenerative changes of the visualized lumbar spine and right hip, interval total left hip arthroplasty. RAD/Abdomen Single View IMPRESSION: Colonic air distention consistent with history. No evidence of obstruction or extensive fecal retention. Electronically Signed: Esmer Borja MD at 1:38 EST , Service support ,
--- OUTSIDE RECORDS SUMMARY | 2018-07-14 12:01 | XMS RPT_ITS ---
:1935 Author Organization OHIP Support Name Relationship Address Phone R Unavailable Unavailable Unavailable ELIGIO SANCHEZ Unavailable [address] + [place] [address] R Unavailable Unavailable Unavailable ELIGIO SANCHEZ Unavailable [address] + [place] [address] R Unavailable Unavailable Unavailable ELIGIO SANCHEZ Unavailable [address] + [place] [address] R Unavailable Unavailable Unavailable ELIGIO SANCHEZ Unavailable [address] + [place] [address] R Unavailable Unavailable Unavailable ELIGIO SANCHEZ Unavailable [address] + [place] [address] UE Unavailable Unavailable Unavailable ELIGIO SANCHEZ Unavailable [address] + [place] [address] R Unavailable Unavailable Unavailable ELIGIO SANCHEZ Unavailable [address] + [place] [address] UE Unavailable Unavailable Unavailable ELIGIO SANCHEZ Unavailable [address] + [place] [address] R Unavailable Unavailable Unavailable ELIGIO SANCHEZ Unavailable [address] + [place] [address] UE Unavailable Unavailable Unavailable ELIGIO SANCHEZ Unavailable [address] + [place] [address] UE Unavailable Unavailable Unavailable ELIGIO SANCHEZ Unavailable [address] + [place] [address] UE Unavailable Unavailable Unavailable ELIGIO SANCHEZ Unavailable [address] + [place] [address] UE Unavailable Unavailable Unavailable ELIGIO SANCHEZ Unavailable [address] + [place] [address] UE Unavailable Unavailable Unavailable ELIGIO SANCHEZ Unavailable [address] + [place] [address] UE Unavailable Unavailable Unavailable ELIGIO SANCHEZ Unavailable [address] + [place] [address] UE Unavailable Unavailable Unavailable ELIGIO SANCHEZ Unavailable [address] + [place] [address] UE Unavailable Unavailable Unavailable ELIGIO SANCHEZ Unavailable [address] + [place] [address] Care Team Providers Name Role Phone Becka Young Primary Care Unavailable Sementi, Olivia Admitting Unavailable Sementi, Olivia Attending Unavailable Sementi, Olivia Attending Unavailable Sementi, Olivia Attending Unavailable Sementi, Olivia Attending Unavailable Becka Young Attending Unavailable Eligio Campbell Attending Unavailable Sementi, Olivia Referring Unavailable Becka Young Attending Unavailable Becka Young Referring Unavailable Becka Young Primary Care Unavailable Rafaela, [place] Attending Unavailable HannahBecka steve Primary Care Unavailable White, Hanny Admitting Unavailable White, Hanny Attending Unavailable White, Hanny Attending Unavailable Sementi, Olivia Attending Unavailable Trini, Anders Admitting Unavailable Trini, Anders Referring Unavailable Becka Young Primary Care Unavailable Dori, Azam Consulting Unavailable Becka Fletcher Attending Unavailable Trini, Anders Admitting Unavailable Jopperi, Azam Attending Unavailable Trini, Anders Referring Unavailable Hannah, Becka Primary Care Unavailable Jopperi, Azam Consulting Unavailable Trini, Anders Consulting Unavailable Trini, Anders Admitting Unavailable Justine Becka Attending Unavailable Trini, Anders Referring Unavailable Hannah, Becka Primary Care Unavailable Jopperi, Azam Consulting Unavailable Terpanda, Becka Consulting Unavailable Becka Young Attending Unavailable Becka Young Primary Care Unavailable Rafaela, [place] Attending Unavailable CHEKO DEAL Referring Unavailable Becka Young Attending Unavailable Becka Young Referring Unavailable HannhaBecka steve Primary Care Unavailable PROBLEMS PROBLEMS DATE TYPE CONDITION / CODE ATTENDING STATUS SOURCE 05/19/2018 Unknown R14.0 - Abdominal Hannah, Becka Active [facility] distension [facility] (gaseous[facility] / Hospital R14.0(ICD-10) Repository 05/19/2018 Unknown K59.00 - Becka Young Active [facility] Constipation, Community unspecified / Hospital K59.00(ICD-10) Repository 01/19/2018 Unknown R55 - Syncope and Rafaela, [place] Active [facility] collapse / Community R55(ICD-10) Hospital Repository 01/19/2018 Unknown R53.1 - Weakness / Rafaela, Jason Active [facility] R53.1(ICD-10) [facility] Hospital Repository 08/26/2017 Unknown I24.8 - Other Becka Young Active [facility] forms of acute Community ischemic heart Hospital disease / Repository I24.8(ICD-10) 07/26/2017 Unknown D72.819 - Becka Young Active [facility] Decreased white Community blood cell count, Hospital unspecified / Repository D72.819(ICD-10) 07/26/2017 Unknown D61.818 - Other Becka Young Active [facility] pancytopenia / Community D61.818(ICD-10) Hospital Repository 06/28/2017 Unknown R52 - Pain, Sementi, Active [facility] unspecified / Olivia Community R52(ICD-10) Hospital Repository 06/28/2017 Unknown R11.2 - Nausea Sementi, Active [facility] with vomiting, Olivia Community unspecified / Hospital R11.2(ICD-10) Repository 06/28/2017 Unknown B37.0 - Candidal Sementi, Active [facility] stomatitis / Olivia Community B37.0(ICD-10) Hospital Repository PROCEDURES PROCEDURES No Procedure Records FoundRESULTS RESULTS ABDOMEN SINGLE VIEW Observed: 05/19/2018 Status: F Source: [place] 10:10 AM [facility] REPOSITORY [facility] Imaging Services [address] [place] [address] Abdomen Single View MR#: [id number] Acct: [id number] Name: JL SANCHEZ Rep #: [id number] : 1935 F 82 From: Esmer Borja MD PCP: Becka Young DO Status: REG CLI Study: Abdomen Single View Date of Exam: 05/19/18 Exam# [id number] Ordering Dr: Becka Young DO STUDY: X-RAY - ABDOMEN/PELVIS REASON FOR EXAM: Female, 82 years old. Bloating and constipation for couple weeks. TECHNIQUE: Single AP view of the abdomen / pelvis. COMPARISON: 10/19/2016 FINDINGS: Single mild elevation of the right hemidiaphragm, costochondral calcification and osteopenia. Air distention of colon without obstructive pattern. No significant amount of retained fecal material. There is no demonstrated free abdominal air. The visualized liver, spleen and kidneys are grossly normal in size and morphology. Normal soft tissue structures. There are diffuse degenerative changes of the visualized lumbar spine and right hip, interval total left hip arthroplasty. RAD/Abdomen Single View IMPRESSION: Colonic air distention consistent with history. No evidence of obstruction or extensive fecal retention. Electronically Signed: Esmer Borja MD at 1:38 EST , Service support , CC: Becka Young DO Reservation Sales Agent: Signed DISCHARGE INSTRUCTION Observed: 01/14/2018 Status: F Source: [place] 6:[address] [facility] REPOSITORY [facility] Medical Records Department [address] [place] [address] Instructions for Home/Discharge Instructions 01/13/18 1001 MR#: [id number] Acct: [id number] Name: JL SANCHEZ Rep #: [id number] : 1935 82 From: Roderick Arevalo PA-C PCP: Becka Young DO Status: ADM IN Discharge Diet: No Restrictions Discharge Activity: May Not Drive - while taking narcotic pain medications. May shower in (days): 1 - only if incision is dry and without drainage. Do NOT soak/submerge in tub/pool/goldstein/stream/hot tub. Ice area for (Minutes): 20 - Every 1-2 hours while awake Weight Bearing Status: Weight bearing as tolerated Elevate: Operative Extremity Additional Activity Instructions:: Wear elastic stockings for 2 weeks. DO NOT use alcohol with narcotic pain medication. DO NOT make important decisions while taking narcotic medication. If you have problems with taking your medication (rash, itching, nausea, etc.) call the office at once. Call your doctor if your incision/area has: Increased Pain/ Swelling, Increased Redness, Foul Smelling Discharge Call your doctor if you observe: Fever of 101 or Higher Remove Dressing in (days):: 3 - Okay to remove on January 17, 2018 Additional Instructions: Follow [facility] postop instructions May resume [id number] vitamins and supplements 2 weeks postoperatively Allergies/Adverse Reactions: Allergies aspirin Adverse Reaction (Verified 12/29/17 10:04) Unknown buspirone HCl [From BuSpar] Adverse Reaction (Verified 12/29/17 10:04) Unknown butalbital [From Esgic] Adverse Reaction (Verified 12/29/17 10:04) Unknown caffeine [From Norgesic] Adverse Reaction (Verified 12/29/17 10:04) Unknown diazepam [From Valium] Adverse Reaction (Verified 12/29/17 10:04) Unknown doxycycline Adverse Reaction (Verified 12/29/17 10:04) Unknown erythromycin base Adverse Reaction (Verified 12/29/17 10:04) Unknown NSAIDS (Non-Steroidal Anti-Inflamma Adverse Reaction (Verified 12/29/17 10:04) Unknown orphenadrine citrate [From Norgesic] Adverse Reaction (Verified 12/29/17 10:04) Unknown Penicillins Adverse Reaction (Verified 12/29/17 10:04) Unknown promethazine HCl [From Phenergan] Adverse Reaction (Verified 12/29/17 10:04) Unknown Sulfa (Sulfonamide Antibiotics) Adverse Reaction (Verified 12/29/17 10:04) Unknown valdecoxib [From Bextra] Adverse Reaction (Verified 12/29/17 10:04) Unknown Medications to take at Discharge Sertraline HCl [Zoloft] 12.5 mg PO DAILY 10/09/14 Calcium Carbonate [Calcium] 500 mg PO DAILY 12/29/17 Acetaminophen [Tylenol] 1,000 mg PO Q8 #90 tab 01/13/18 Senna/Docusate Sodium [Senokot-S] 2 tab PO BID #20 tab 01/13/18 traMADol [Ultram] 50 - 100 mg PO Q6H PRN PRN #30 tab 01/13/18 The following prescriptions were given: traMADol [Ultram] 50 - 100 mg PO Q6H PRN PRN #30 tab PRN Reason: Moderate Pain (4-5/10) Acetaminophen [Tylenol] 1,000 mg PO Q8 #90 tab Senna/Docusate Sodium [Senokot-S] 2 tab PO BID #20 tab Primary Care Physician: Becka Young DO [Primary Care Provider] - Test Results: Test results from this visit will be discussed in further detail at your follow-up appointment, if applicable. Please Follow Up With: [facility] physical therapy When: 01/17/18 @ 10:30 am with [place] Please Follow Up With: Roderick Arevalo PA-C When: 01/26/18 @ 9:00 am 01/14/18 0654 <Electronically signed by Roderick Arevalo PA-C> Date Roderick Arevalo PA-C CC: Azam Meadows DO; Becka Young DO CBC-COMPLETE BLOOD CNT Collected: 01/14/2018 Status: F Source: [place] NO DIFF 5:[address] [facility] REPOSITORY TYPE CODE TESTS RESULT OUT OF RANGE REFERENCE UNITS LAB L100.1000 4.4-11.0 K/mm3 Normal WBC 5.4 LAB L100.1200 4.2-5.4 M/mm3 Low RBC 3.02 LAB L100.1300 12.0-15.0 g/dl Low HGB 8.9 LAB L100.1400 37-47 % Low HCT 27.1 LAB L100.1500 81-99 fL Normal MCV 89.7 LAB L100.1600 27.0-32.0 pg Normal MCH 29.5 LAB L100.1700 32-36 g/gl Normal MCHC 32.8 LAB L100.1810 11.6-14.6 % Normal RDW CV 14.4 LAB L100.1820 35.1-43.9 fl High RDW SD 47.5 LAB L100.1900 150-450 K/mm3 Normal PLT 155 LAB L100.2000 6.2-12.0 fl Normal MPV 10.1 Performed By: #### L100.0500 #### [facility] [address] [facility] [place], [place], [id number] CBC-COMPLETE BLOOD CNT Collected: 01/13/2018 Status: F Source: [place] NO DIFF 5:[address] [facility] REPOSITORY TYPE CODE TESTS RESULT OUT OF RANGE REFERENCE UNITS LAB L100.1000 4.4-11.0 K/mm3 Normal WBC 4.7 LAB L100.1200 4.2-5.4 M/mm3 Low RBC 2.89 LAB L100.1300 12.0-15.0 g/dl Low HGB 8.6 LAB L100.1400 37-47 % Low HCT 26.4 LAB L100.1500 81-99 fL Normal MCV 91.3 LAB L100.1600 27.0-32.0 pg Normal MCH 29.8 LAB L100.1700 32-36 g/gl Normal MCHC 32.6 LAB L100.1810 11.6-14.6 % Normal RDW CV 13.7 LAB L100.1820 35.1-43.9 fl High RDW SD 44.6 LAB L100.1900 150-450 K/mm3 Normal PLT 169 LAB L100.2000 6.2-12.0 fl Normal MPV 10.9 Performed By: #### L100.0500 #### [facility] [address] [facility]. [place], [place], [id number] BASIC METABOLIC Collected: 01/13/2018 Status: F Source: [place] PROFILE (BMP) 5:[address] [facility] REPOSITORY TYPE CODE TESTS RESULT OUT OF RANGE REFERENCE UNITS LAB L501.0100 74-106 mg/dL Normal GLU 96 Result Comment: Please note revised GLUCOSE reference range effective 2017. LAB L501.1000 7-18 mg/dL Normal BUN 8 LAB L501.1100 0.55-1.02 mg/dL Normal CREAT,SERUM 0.74 Result Comment: The validity of the calculated GFR AND GFRAA in patients over 70 years has not been determined. Clinical correlation is essential. LAB L501.1110 >60 mL/min Normal EST GFR 81 Result Comment: Non- GFR Calc LAB L501.1115 >60 mL/min Normal EST GFR - AA 98 Result Comment: GFR Calc LAB L501.1255 ml/min Normal Estimated CRCL 36.50 LAB L501.1300 10-20 RATIO Normal BUN/CRE 10.9 LAB L501.2200 8.5-10 mg/dL Low .1 CA 8.3 LAB L501.5300 136-14 mmol/L Normal 5 NA 143 LAB L501.5600 3.5-5. mmol/L Normal 1 K 3.8 LAB L501.5900 98-107 mmol/L High CL 108 LAB L501.6100 21.0-3 mmol/L Normal 2.0 CO2 27.0 LAB L501.6200 5-15 Normal GAP 8 Performed By: #### L500.2500 #### [facility] [address] [facility] [place], [address] OPERATIVE REPORT Observed: 01/12/2018 Status: F Source: [place] 12:[address] [facility] REPOSITORY [facility] Medical Records Department [address] [place] [address] Operative Report 01/12/18 1017 MR#: [id number] Acct: [id number] Name: JL SANCHEZ Rep #: [id number] : 1935 82 From: Anders Feliz MD PCP: Becka Young DO Status: ADM IN Y Location: [place] [address]-1 ADDENDUM by Anders Feliz MD on 01/12/18 at 1226 Code Visit Correction the patient received 600 mg Cleocin not 2 g Ancef 01/12/18 1226 <Electronically signed by Adners Feliz MD> Date Anders Feliz MD cc: Becka Young DO; Anders Feliz MD * Signed Report of Operation Date of Procedure: 01/12/18 Pre-Operative Diagnosis: Left hip primary osteoarthritis Post-Operative Diagnosis: Left hip primary osteoarthritis Surgery/Procedure Performed:: left DA CLAUDETTE Description of Surgical Findings:: stable hip with equal leg lengths health professional: Akhil Duvall Type of Anesthesia:: General Anesthesiologist: Juan Pablo Mason Special Medications: 2 g Ancef, 1 g TXA at incision, 1 g TXA closure, 10 mg Decadron, joint cocktail (5 mg Duramorph, 30 mL of 0.5% Ropivicaine, 1000 units of epinephrine, 30 mg of Toradol) Specimen's removed: Bony cuts Estimated Blood Loss (mL): 200 Fluids Replaced: 1300 ml crystalloin Description of Procedure: Components used: 1. Accolade 2 Jessica femoral stem size 2 127 2. Gaston trident acetabular shell size 48 mm 3. Jessica X3 polyethylene D 4. Jessica Biolox delta 36mm, -2.5mm femoral head Brief history operative indications: 82 yo F who failed conservative measures for their hip osteoarthritis. X-rays were consistent with osteoarthritis including joint space narrowing, osteophyte formation and subchondral cysts. Total hip replacement was discussed with the patient with risks and benefits including but not limited to blood loss, DVTs, PEs, neurovascular damage, dislocation, general risks of anesthesia including loss of life. Patient demonstrated an understanding medical clearance is obtained the patient was consented for surgery. Procedure: On the date of procedure the patient's L hip was marked in the preoperative area. Patient was then taken back to the operating room where anesthesia assumed control of the C-spine and airway and administered anesthetic. Patient was transferred to the operating table and placed in the supine position. The hips were placed at the break of the bed and a sacral bump was placed. The L lower extremity was then prepped out in a sterile fashion using chlorhexidine while the surgeon scrubbed. The PA was vital in the positioning of the patient. Upon reentering the room the L lower extremity was draped in the standard orthopedic fashion and the incision was marked. A timeout was called and everyone agreed upon the side, the site, the procedure be performed, antibody given, and patient's identity. At this time incision was made through skin, subcutaneous tissue, and fat down to fascia. The fascia was then incised and the TFL was retracted laterally. A retractor was placed on the lateral border of the femoral neck. Attention was directed to the inferior portion of the approach and all crossing vessels were identified and appropriately coagulated. A retractor was then placed on the medial portion of the femoral neck. The anterior capsule was then cleared of all soft tissue and then H shaped capsulotomy was made. The retractors were then placed inside the capsule. The femoral neck was identified and a cleanup cut was made. At this time a power corkscrew was used to remove the femoral head. Attention was then turned toward the acetabulum where the soft tissues were appropriately retracted and the acetabulum was sequentially reamed to 49 mm. A 50 mm cup was then selected and impacted into place. Acetabular liner was impacted into place and locking mechanism was verified. The position of the acetabular cup was then verified under live fluoroscopy. Attention was then turned to the femur. Soft tissue releases on the medial and lateral femoral neck were appropriately done, the leg was externally rotated and lateralized. A Bo retractor was placed medially and proximally to the greater trochanter this allowed appropriate visualization and exposure of the femoral canal. Rongeour was then used to remove excess lateral bone. A canal finder and entry broach were used to open the proximal canal. Once we verified we were down the femoral canal we subsequently broached up to a size 2 femur. The appropriate neck was placed in the previously selected head was trialed with a -2.5 mm neck. Traction was pulled and the hip was reduced with internal rotation. Once it was appropriately reduced and stability was checked. There was minimal shuck, equal leg lengths and appropriate stability with hyperextension and external rotation as well as with 90 flexion and internal rotation. Fluoroscopy was then also used to verify the position of the components and leg lengths using the contralateral side for comparison. The trial components were then dislocated the proximal femur was again exposed and the components were removed from the wound. The final components were verified and opened. The wound was copiously irrigated out with normal saline. The acetabulum was checked for any residual debris. The final components were placed and impacted. Traction and internal rotation were again used to reduce the hip. After adequate reduction the hip remained stable with appropriate leg lengths. The final components were once again checked with live fluoroscopy and were found to be satisfactory. The wound was then copiously irrigated with normal saline once more, and hemostasis was obtained. Closure was then done using #1 Vicryl runner to close the fascia. A 2-0 vicryl interuppted sutures were used to close the subcutaneous skin. A 3-0 Monocryl and Steri-Strips were used for final skin closure. A Silverlon dressing was placed. Patient was awakened by anesthesia and transferred to the [place]. Patient was then transferred to the PACU for recovery. Postoperative plan: Patient will get 24 hours postop antibiotics. Patient will get in-house physical therapy and will be weight-bear as tolerated. Patient will follow up in office in 2 weeks for a wound check and x-rays. Patient is a hemophiliac. Aggressive hemostasis was performed during surgery. We also used the Cell Saver. Based on risk assessment I have elected not to anticoagulate the patient postoperatively as she has a history of blood transfusions from minor surgeries. During the course of the procedure the physician preschool assistant principal played a vital role. His intimate knowledge of my steps in the procedure aided in safe and expedient completion of the procedure. The PA played a vital rolls in positioning particularly in obtaining the appropriate positioning of the sacral bump. The PA was also vital in the retraction of soft tissues during the exposure and especially the femoral work as this is a vital part of the procedure to prevent complications and fractures. The PA was also vital and protecting soft tissues during times of bony cuts and reaming. He also played a vital role in closure with my direct supervision. The PA was also important during reduction and dislocation of the joint and trials intraoperatively. Grafts/Implants Used: jessica accolade 2 - Complications none - Admit VTE Documentation VTE Present on Admission: No VTE Mechan Device Prophylaxis: SCD's VTE Pharm Prophylaxis ordered?: No Reason prophylaxis not ordered:: Medical Contraindication - pt is hemapheliac 01/12/18 1136 <Electronically signed by Anders Feliz MD> Date Anders Feliz MD CC: Becka Young DO; Anders Feliz MD Signed HIP MIN 2 VIEWS Observed: 01/12/2018 Status: F Source: [place] (PORTABLE) 8:[address] [facility] REPOSITORY [facility] Imaging Services [address] [place] [address] Hip Min 2 Views (Portable) MR#: [id number] Acct: [id number] Name: JL SANCHEZ Valeri Rep #: [id number] : 1935 F 82 From: Reyes Campuzano MD PCP: Becka Young DO Status: ADM IN Study: Hip Min 2 Views (Portable) Date of Exam: 01/12/18 Exam# [id number] Ordering Dr: Anders Feliz MD STUDY: X-RAY - PELVIS AND left HIP REASON FOR EXAM: Female, 82 years old. Replacement surgery TECHNIQUE: Radiological exam, hip, unilateral, with pelvis when performed; 2 or 3 views. 2 views. COMPARISON: 12/30/2016 FINDINGS: Patient is status post left hip replacement surgery.. Components demonstrate anatomic alignment. No plain film evidence of postoperative complication. Normal postoperative soft tissue swelling and subcutaneous emphysema noted. RAD/Hip Min 2 Views (Portable) IMPRESSION: Replaced left hip joint demonstrates anatomic alignment. No plain film evidence of postoperative complication Electronically Signed: Ted Campuzano MD at 11:23 EDT , Service support , CC: Becka Young DO; Anders Feliz MD Reservation Sales Agent: Signed HIP 1 VIEW WITH Observed: 01/11/2018 Status: F Source: [place] PELVIS 11:[address] [facility] REPOSITORY [facility] Imaging Services [address] [place] [address] Hip 1 view with Pelvis MR#: [id number] Acct: [id number] Name: JL SANCHEZ Rep #: [id number] : 1935 F 82 From: Reyes Campuzano MD PCP: Becka Young DO Status: ADM IN Study: Hip 1 view with Pelvis Date of Exam: 01/12/18 Exam# [id number] Ordering Dr: Anders Feliz MD STUDY: X-RAY - PELVIS AND LEFT HIP REASON FOR EXAM: Female, 82 years old. Left hip replacement TECHNIQUE: Radiological exam, hip, unilateral, with pelvis when performed; 2 or 3 views. 3 intraoperative views COMPARISON: 12/30/2016 FINDINGS: 3 limited intraoperative C-arm films were performed of the left hip as patient is undergoing replacement surgery. Components demonstrate anatomic alignment. RAD/Hip 1 view with Pelvis IMPRESSION: 3 limited views of the left hip show anatomic alignment of components during hip replacement surgery Electronically Signed: Ted Campuzano MD at 15:01 EDT , Service support , CC: Becka Young DO; Anders Feliz MD Reservation Sales Agent: Signed HISTORY AND PHYSICAL Observed: 01/02/2018 Status: F Source: [place] EXAM 12:[address] [facility] REPOSITORY [facility] Medical Records Department [address] [place] [address] History and Physical 01/01/18 2352 MR#: [id number] Acct: [id number] Name: JL SANCHEZ Rep #: [id number] : 1935 82 From: Roderick Arevalo PA-C PCP: Becka Young DO Status: PRE IN Y Location: [facility] History and Physical DATE OF SURGERY: 01/12/2018 SCHEDULED PROCEDURE: Direct anterior left total hip replacement HISTORY OF PRESENT ILLNESS: This is an 82-year-old female who is had ongoing pain in the left hip for the past 1-2 years. Patient currently states her pain is intermittent, sharp, stabbing. She has increased pain going up and down stairs, sitting for extended periods time, and driving. Patient states her pain can reach as high as a 9 out of 10. Patient does state she occasionally gets woken up by the hip pain. Patient states she has limited mobility with activities of daily living. She has tripped/stumbled secondary to her hip pain. Patient has tried conservative measures consisting of rest, ice, elevation with minimal relief in symptoms. Patient has tried home exercises and residential caregiver with no relief in symptoms. She has tried oral medications consisting of meloxicam and tramadol and supplements with no relief in symptoms. After failing conservative measures and discussing all treatment options with Dr. Anders Feliz the patient would like to proceed with a left total hip arthroplasty. Patient has obtain surgical clearance from primary care physician. Patient currently denies any chest pain, shortness of breath, fevers chills, recent infections. Patient states she has a history of bleeding but with no diagnostic disease. She states she has hemophilia and her family however she was not diagnosed with this. REVIEW OF SYSTEMS: ROS: Const: Reports anxiety, change in appetite and difficulty sleeping, but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 diagnosis. To establish a diagnosis of MT versus myocardial injury, there must be a demonstrated rise and/or fall in the troponin values, in addition to ischemic symptoms, EKG changes, new regional wall motion abnormality, and/or angiographical evidence. PLEASE NOTE: REFERENCE RANGES EDITED 17 Performed By: #### L500.4050, L501.4010 #### [facility] [address] [place], [address] LACTIC ACID Collected: 11/25/2017 Status: F Source: [place] 6:[address] [facility] REPOSITORY Order Comment: RESULT(S) PREVIOUSLY REPORTED ON MANUAL REQUISITION DURING DOWNTIME. TYPE CODE TESTS RESULT OUT OF REFERENCE UNITS RANGE LAB L503.6005 0.4-2.0 mmol/L High LACTIC ACID 3.2 Performed By: #### L503.6005 #### [facility] [address] [place], [address] Observed: 11/25/2017 Status: P Source: [place] CULTURE, BLOOD (WB) 6:[address] [facility] REPOSITORY BC No growth in 48 hours. Performed By: #### M200.1000 #### [facility] [address] [facility], [address] STRESS REPORT Observed: 08/26/2017 Status: F Source: [place] 11:[address] [facility] REPOSITORY [facility] Cardiovascular Services [address] [place] [address] MR#: [id number] Acct: [id number] Name: JL SANCHEZ Rep #: [id number] : 1935 82 From: Jason Russo MD Primary Care: [facility] Becka SIN Status: REG CLI Ordering Dr: Sex: F C Stress Test Report Pharmacologic myocardial perfusion stress test. 82-year-old lady with a history of chest pain. Stress protocol: Resting EKG demonstrates normal sinus rhythm rate of 70 bpm. Resting blood pressure is 152/74 mmHg. 0.4 mg of regadenoson was infused per usual protocol followed by rapid intravenous saline flush injection. At rest there were no ST ST wave changes noted suggest ischemia at peak infusion no ST or T-wave changes were noted suggest ischemia. Resting blood pressure is 152/74 with a final blood pressure 142/70. No clinical angina was noted. Myocardial perfusion protocol. 11.4 mCi of technetium 99m sestamibi was injected at rest. 0.4 mg regadenoson was infused per usual protocol at peak infusion 33.8 mCi of technetium 99m sestamibi was injected. Stress images were obtained. Stress and rest images were reconstructed and compared in the short axis vertical long and horizontal long axis. Gated images were also obtained. Perfusion SPECT analysis: Review of the stress images demonstrate a normal cardiac silhouette size. There is uniform uptake of tracer noted in all areas of the myocardium. The resting images similarly demonstrate normal uptake of tracer noted in all areas of the myocardium. No previous infarct is noted no ischemia is present. Gated SPECT analysis: The gated ejection fraction is over 80%. Conclusion: Normal pharmacologic myocardial perfusion stress test. Preserved ejection fraction. 08/26/17 1153 <Electronically signed by Jason Russo MD> Date Jason Russo MD CC: Becka Young DO Date Dictated: 08/26/17 1145 Date Transcribed: 08/26/17 1145 Reservation Sales Agent: CO Signed CBC W/DIFF, AUTOMATED Collected: 07/26/2017 Status: F Source: [place] 3:[address] [facility] REPOSITORY TYPE CODE TESTS RESULT OUT OF RANGE REFERENCE UNITS LAB L100.1000 4.4-11.0 K/mm3 Normal WBC 4.8 LAB L100.1200 4.2-5.4 M/mm3 Low RBC 3.70 LAB L100.1300 12.0-15.0 g/dl Low HGB 10.9 LAB L100.1400 37-47 % Low HCT 33.5 LAB L100.1500 81-99 fL Normal MCV 90.5 LAB L100.1600 27.0-32.0 pg Normal MCH 29.5 LAB L100.1700 32-36 g/gl Normal MCHC 32.5 LAB L100.1810 11.6-14.6 % High RDW CV 14.7 LAB L100.1820 35.1-43.9 fl High RDW SD 47.7 LAB L100.1900 150-450 K/mm3 Normal PLT 172 LAB L100.2000 6.2-12.0 fl Normal MPV 10.5 LAB L100.2100 47-70 % Low NEUT% 43.0 LAB L100.2200 19-41 % High LY% 41.1 LAB L100.2300 0-10 % High MONO% 12.2 LAB L100.2400 0-5 % Normal EO% 3.1 LAB L100.2500 0-1 % Normal BASO% 0.6 LAB L100.2550 0.0-0.9 % Normal IM GRAN % 0.000 Result Comment: IG% - Immature Granulocytes (promyelocytes, myelocytes and metamyelocytes) > 1% indicates that a LEFT SHIFT is Present. LAB L100.2620 2.0-7.7 X10 3/uL Normal Absolute Neut 2.1 LAB L100.2720 0.83-4.51 X10 3/ul Normal Absolute Lymph 1.98 Performed By: #### L100.0100 #### [facility] [address] [facility] [place], [address] 12 LEAD ELECTROCARDIOGRAM Observed: 06/28/2017 Status: F Source: [place] 3:[address] [facility] REPOSITORY [facility] Cardiovascular Services [address] [place] [address] 12 Lead EKG 06/24/17 0502 MR#: [id number] Acct: [id number] Name: JL SANCHEZ Rep #: [id number] : 1935 81 From: Hammad Yuen MD Attending Dr: Olivia Chavez Status: DIS MYRON Ordering Dr: Valeri Chavez DO Date: 06/24/17 Location: [facility] Sex: F C Admitted: 06/23/17 Test Reason : AM EKG Blood Pressure : / mmHG Vent. Rate : 060 BPM Atrial Rate : 060 BPM P-R Int : 158 ms QRS Dur : 084 ms QT Int : 438 ms P-R-T Axes : 070 046 042 degrees QTc Int : 438 ms Normal sinus rhythm Normal ECG Confirmed by ALPA CASTILLO, HAMMAD ([id number]), online content editor SANDRA HOYT ([id number]) on 06/28/2017 3:32:34 PM Referred By: JOCELYN Confirmed By:HAMMAD YUEN MD 06/28/17 1532 Date Hammad Yuen MD CC: Becka Young DO Signed DISCHARGE SUMMARY Observed: 06/25/2017 Status: F Source: [place] 11:[address] [facility] REPOSITORY [facility] Medical Records Department [address] [place] [address] Discharge Summary 06/25/17 1428 MR#: [id number] Acct: [id number] Name: JL SANCHEZ Rep #: [id number] : 1935 81 From: Valeri Chavez DO PCP: Becka Young DO Status: DIS MYRON Y Location: [place] [address] Discharge Date and Diagnosis - Problem List Patient Problems: Active and Suspected Problems Viral illness (Suspected) Demand ischemia (Acute) Date of Admission: 06/23/16 Date of Discharge: 06/25/17 - Primary Discharge Diagnosis Active and Suspected Problems Viral illness (Suspected) Demand ischemia (Acute) Lactic acidosis (Acute) Hypokalemia (Acute) Metabolic acidosis (Acute) - Secondary Discharge Diagnosis Chronic Problems Dyslipidemia (Chronic) Diastolic dysfunction (Chronic) Pulmonary hypertension (Chronic) - moderate GERD (gastroesophageal reflux disease) (Chronic) Anxiety and depression (Chronic) Pancytopenia (Chronic) Hospital Course and Treatment Imaging Results: Clinical Impression(s) from Imaging Studies Chest X-Ray 06/23/17 07:45 IMPRESSION: No acute abnormality is seen. Electronically Signed: Gurinder Graves MD at 10:17 EST Tel [phone], Service support , Laboratory Tests WBC 4.2 L Corrected WBC RBC 3.88 L Hgb 11.5 L Hct 34.8 L WBC Corrected WBC RBC Hgb Hct MCV MCH MCHC RDW RDW Differential Plt Count WBC Corrected WBC RBC WBC Corrected WBC RBC Hgb Hct MCV MCH none Operations: None Procedures: 2-D Echocardiogram Summary of Care Provided: The patient is an 81-year-old Shinto female with a past medical history of GERD, anxiety/depression and pancytopenia(she and her family were unaware of this) who was brought to the emergency room on 06/23/2016 with complaints of lethargy, arthralgias, myalgias, headache, sore throat and cough. Multiple family members had been ill with similar symptoms recently. On the date of admission her daughter stated that she had 5 minutes of unresponsiveness. She witnessed no tonic-clonic activity and she had no incontinence. This apparently happens when she is ill. She has had extensive cardiology workup in the past and it has all been negative per the family. Vital signs at presentation to the emergency room were temp 100.1, pulse 72, respiratory rate 14, blood pressure 139/66 and she was 98% saturated on room air. She was pancytopenic with a white blood cell count of 4.2, hemoglobin of 11.5 and platelets of 136,000. Serum bicarb was decreased at 19 and the potassium was 3.4. BUN was 12 with a creatinine of 0.73 and the LFTs were unremarkable. Initial troponin was elevated at 0.08 and peaked at 0.29. Monospot was negative and the rapid strep was also negative. Chest x-ray showed no acute infiltrates, pulmonary vascular congestion or pleural effusions. Respiratory panel and influenza were negative. On physical examination she was alert and oriented 3. She was lying flat in bed with no cough and no shortness of breath. His membranes were dry and the tongue had a white coating. There was erythema in the posterior pharynx and the soft palate with patchy areas of white. She had no cervical adenopathy and the trachea was midline. There was no nuchal rigidity. She could flex her chin onto the chest. Lungs were clear to auscultation and the heart had a regular rate and rhythm with no murmur, no gallop and no rub. Abdominal exam was unremarkable. She had no rashes and the neurologic exam was nonfocal. There were no red, swollen or warm joints. She was admitted to the hospital with suspected viral illness, thrush and possible syncope? Nystatin swish and swallow was started. A lipid panel was obtained because of the possible syncopal episodes and it showed an elevated cholesterol at 234, LDL of 145 and an HDL of 70. B12 was within normal limits at 1279 and the TSH was normal. A C-reactive protein was mildly increased at 18.1 and the ESR was normal at 23. Rheumatoid factor was negative and the NAT was also negative. An echocardiogram was done and showed an ejection fraction of 65% with stage I diastolic dysfunction. She had 1-2+ tricuspid valve insufficiency in the right ventricular systolic pressure was estimated at 53. There were no segmental wall motion abnormalities. Over the course of the next 48 hours she was markedly improved and was ambulating with her daughter. She is a very anxious woman and has multiple somatic complaints. She gets nauseated and wanted a RX for Zofran. Her dtr was concerned that Tylenol would not be adequate for her MATIAS and she requested a RX for something stronger. I did discuss with the pt and her youngest dtr getting a hematology consult while in the hospital, but they refused and the dtr stated she would have to discuss this with the rest of the family and with Dr. Young. Vital signs at the time of discharge on 06/25/2017 were temp 98.6, pulse rate 56, blood pressure 126/56 respiratory rate 19 and she was 95-97% saturated on room air. White blood cell count was 3.1 with a hemoglobin of 10.4 and platelets of 131,000. Electrolytes were within normal limits. She was discharged home with a prescription for nystatin swish and swallow, Zofran ODT, metoprolol 25 mg twice daily and OxyIR 5-10 mg every 4 hours as needed pain, #20 tablets. I also recommended a baby aspirin daily. With the increase in the troponin and the possible syncopal episode with lactic acidosis at admission I am concerned she may have had some type of cardiac episode prior to admission. I recommend she get a stress test as an OP to be evaluated for CAD if it is OK with the family and if Dr. Young feels it is appropriate. I think she probably has MDS and should see a care associate and be worked up and followed. She likely needs a BM done. This note was generated with [employer] dictation software. It may contain incorrect words, spelling, and punctuation that were not noted in checking the note before signing. Discharge Activity: Return to Normal Activity Call your doctor if you observe: Fever of 101 or Higher, Shortness of breath, Fainting spells, Chest pain Home Medications: Medications to take at Discharge Sertraline HCl [Zoloft] 12.5 mg PO DAILY 10/09/14 Aspirin [Aspirin, Baby] 81 mg PO DAILY@0800 #30 tab.chew 06/25/17 Metoprolol Tartrate [Lopressor (beta alonzo)] 25 mg PO BID #60 tab 06/25/17 Nystatin 500,000 unit PO 4X/DAY #240 ml 06/25/17 Ondansetron [Zofran Odt] 4 mg PO Q8H PRN PRN #10 tab.rapdis 06/25/17 Oxycodone [Oxyir] 5 - 10 mg PO Q4H PRN PRN #20 tab 06/25/17 Following Prescrptions Were Given to Patient: Oxycodone [Oxyir] 5 - 10 mg PO Q4H PRN PRN #20 tab PRN Reason: Moderate Pain (pain scale 4-5) Ondansetron [Zofran Odt] 4 mg PO Q8H PRN PRN #10 tab.rapdis PRN Reason: Nausea/Vomiting Metoprolol Tartrate [Lopressor (beta alonzo)] 25 mg PO BID #60 tab Nystatin 500,000 unit PO 4X/DAY #240 ml Primary Care Physician: Becka Young DO [Primary Care Provider] - Please follow up with your Primary Care Physician in: has appt Disposition: Home Minutes spent on discharge:: 40 Meaningful Use Info Meaningful Use Diagnoses (Choose all that apply): None applicable Code Visit OBSV E AND M: 17128 Observation care discharge 06/25/17 3972 <Electronically signed by Valeri Chavez DO> Date Valeri Chavez DO Cosigner Signature (if applicable): Date CC: Olivia Chavez; Becka Young DO Signed DISCHARGE INSTRUCTION Observed: 06/25/2017 Status: F Source: [place] 2:[address] [facility] REPOSITORY [facility] Medical Records Department [address] [place] [address] Instructions for Home/Discharge Instructions 06/25/17 1416 MR#: [id number] Acct: [id number] Name: JL SANCHEZ Rep #: [id number] : 1935 81 From: Valeri Chavez DO PCP: Hannah SIN,Becka Status: ADM MYRON - Discharge Diagnoses Current Active Problems: Current Active and Chronic Problems Anxiety and depression (Chronic) Pancytopenia (Chronic) Lactic acidosis (Acute) Hypokalemia (Acute) Metabolic acidosis (Acute) Sepsis (Acute) You will use the following diet at home:: No restrictions Your food should be the consistency of: Regular Your liquids should be the consistency of: Regular/Thin Discharge Activity: Return to Normal Activity Call your doctor if you observe: Fever of 101 or Higher, Shortness of breath, Fainting spells, Chest pain Allergies/Adverse Reactions: Allergies aspirin Adverse Reaction (Verified 06/23/17 07:33) Unknown buspirone HCl [From BuSpar] Adverse Reaction (Verified 06/23/17 07:33) Unknown butalbital [From Esgic] Adverse Reaction (Verified 06/23/17 07:33) Unknown caffeine [From Norgesic] Adverse Reaction (Verified 06/23/17 07:33) Unknown diazepam [From Valium] Adverse Reaction (Verified 06/23/17 07:33) Unknown doxycycline Adverse Reaction (Verified 06/23/17 07:33) Unknown erythromycin base Adverse Reaction (Verified 06/23/17 07:33) Unknown NSAIDS (Non-Steroidal Anti-Inflamma Adverse Reaction (Verified 06/23/17 07:33) Unknown orphenadrine citrate [From Norgesic] Adverse Reaction (Verified 06/23/17 07:33) Unknown Penicillins Adverse Reaction (Verified 06/23/17 07:33) Unknown promethazine HCl [From Phenergan] Adverse Reaction (Verified 06/23/17 07:33) Unknown Sulfa (Sulfonamide Antibiotics) Adverse Reaction (Verified 06/23/17 07:33) Unknown valdecoxib [From Bextra] Adverse Reaction (Verified 06/23/17 07:33) Unknown Medications to take at Discharge Sertraline HCl [Zoloft] 12.5 mg PO DAILY 10/09/14 Aspirin [Aspirin, Baby] 81 mg PO DAILY@0800 #30 tab.chew 06/25/17 Metoprolol Tartrate [Lopressor (beta alonzo)] 25 mg PO BID #60 tab 06/25/17 Nystatin 500,000 unit PO 4X/DAY #240 ml 06/25/17 Ondansetron [Zofran Odt] 4 mg PO Q8H PRN PRN #10 tab.rapdis 06/25/17 Oxycodone [Oxyir] 5 - 10 mg PO Q4H PRN PRN #20 tab 06/25/17 The following prescriptions were given: Oxycodone [Oxyir] 5 - 10 mg PO Q4H PRN PRN #20 tab PRN Reason: Moderate Pain (pain scale 4-5) Ondansetron [Zofran Odt] 4 mg PO Q8H PRN PRN #10 tab.rapdis PRN Reason: Nausea/Vomiting Metoprolol Tartrate [Lopressor (beta alonzo)] 25 mg PO BID #60 tab Nystatin 500,000 unit PO 4X/DAY #240 ml Primary Care Physician: Becka Young DO [Primary Care Provider] - Please follow up with your Primary Care Physician in: has appt Proposed Discharge Date: 06/25/17 06/25/17 1425 <Electronically signed by Valeri Chavez DO> Date Valeri Chavez DO CC: Becka Young DO 12 LEAD ELECTROCARDIOGRAM Observed: 06/25/2017 Status: F Source: [place] 11:[address] [facility] REPOSITORY [facility] Cardiovascular Services [address] [place] [address] 12 Lead EKG 06/23/17 0754 MR#: [id number] Acct: [id number] Name: JL SANCHEZ Rep #: [id number] : 1935 81 From: Jason Russo MD Attending Dr: Olivia Chavez Status: ADM MYRON Ordering Dr: Tho Calhoun MD Date: 06/23/17 Location: [facility] Sex: F C Admitted: 06/23/17 Test Reason : N/V Blood Pressure : / mmHG Vent. Rate : 061 BPM Atrial Rate : 061 BPM P-R Int : 154 ms QRS Dur : 090 ms QT Int : 440 ms P-R-T Axes : 087 065 066 degrees QTc Int : 442 ms Normal sinus rhythm Normal ECG Confirmed by RAFAELA CASTILLO, JASON ([id number]), online content editor SANDRA HOYT ([id number]) on 06/25/2017 11:50:38 AM Referred By: RALPH Confirmed By:JASON RUSSO MD 06/25/17 1150 Date Jason Russo MD CC: Becka Young Signed CBC W/DIFF, AUTOMATED Collected: 06/25/2017 Status: F Source: [place] 8:[address] [facility] REPOSITORY TYPE CODE TESTS RESULT OUT OF RANGE REFERENCE UNITS LAB L100.1000 4.4-11.0 K/mm3 Low WBC 3.1 LAB L100.1200 4.2-5.4 M/mm3 Low RBC 3.53 LAB L100.1300 12.0-15.0 g/dl Low HGB 10.4 LAB L100.1400 37-47 % Low HCT 31.8 LAB L100.1500 81-99 fL Normal MCV 90.1 LAB L100.1600 27.0-32.0 pg Normal MCH 29.5 LAB L100.1700 32-36 g/gl Normal MCHC 32.7 LAB L100.1810 11.6-14.6 % Normal RDW CV 14.0 LAB L100.1820 35.1-43.9 fl High RDW SD 44.8 LAB L100.1900 150-450 K/mm3 Low PLT 131 LAB L100.2000 6.2-12.0 fl Normal MPV 10.9 LAB L100.2100 47-70 % Low NEUT% 39.5 LAB L100.2200 19-41 % High LY% 45.0 LAB L100.2300 0-10 % High MONO% 12.6 LAB L100.2400 0-5 % Normal EO% 2.3 LAB L100.2500 0-1 % Normal BASO% 0.6 LAB L100.2550 0.0-0.9 % Normal IM GRAN % 0.000 Result Comment: IG% - Immature Granulocytes (promyelocytes, myelocytes and metamyelocytes) > 1% indicates that a LEFT SHIFT is Present. LAB L100.2620 2.0-7.7 X10 3/uL Low Absolute Neut 1.2 LAB L100.2720 0.83-4.51 X10 3/ul Normal Absolute Lymph 1.39 Performed By: #### L100.0100 #### [facility] [address] [place], [address] COMPREHENSIVE METABOLIC Collected: 06/25/2017 Status: F Source: [place] 8:[address] [facility] REPOSITORY TYPE CODE TESTS RESULT OUT OF RANGE REFERENCE UNITS LAB L501.0100 70-110 mg/dL Normal GLU 92 LAB L501.1000 7-18 mg/dL Low BUN 6 LAB L501.1100 0.55-1.02 mg/dL Normal 0.61 CREAT,SERUM Result Comment: The validity of the calculated GFR AND GFRAA in patients over 70 years has not been determined. Clinical correlation is essential. LAB L501.1110 >60 mL/min Normal EST GFR 100 Result Comment: Non- GFR Calc LAB L501.1115 >60 mL/min Normal EST GFR - AA 121 Result Comment: GFR Calc LAB L501.1255 ml/min Normal Estimated CRCL 38.75 LAB L501.1300 10-20 RATIO Low BUN/CRE 9.8 LAB L501.1500 6.4-8. g/dL Normal 2 T PROT 6.9 LAB L501.1800 3.4-5. g/dL Low 0 ALB 3.2 Result Comment: Please note revised Albumin AND Globulin reference range effective 2017. LAB L501.1950 2.2-4.2 g/dL Normal GLOB 3.7 LAB L501.2000 0.9-2.4 RATIO Normal A/G 0.9 LAB L501.2200 8.5-10.1 mg/dL Low CA 8.2 LAB L501.4100 15-37 U/L Normal AST 25 LAB L501.4305 45-117 U/L Normal ALK P 99 LAB L501.4405 12-78 U/L Normal ALT 21 LAB L501.4600 0.20-1.00 mg/dL Normal T BILI 0.40 LAB L501.5300 136-145 mmol/L Normal NA 145 LAB L501.5600 3.5-5.1 mmol/L Normal K 4.1 LAB L501.5900 98-107 mmol/L High CL 111 LAB L501.6100 21.0-32.0 mmol/L Normal CO2 25.0 LAB L501.6200 5-15 Normal GAP 9 Performed By: #### L500.4050 #### [facility] [address] [facility], [address] LIPID PROFILE Collected: 06/24/2017 Status: F Source: [place] 5:[address] [facility] REPOSITORY TYPE CODE TESTS RESULT OUT OF RANGE REFERENCE UNITS LAB L501.4900 200 mg/dL High CHOL 234 Result Comment: <200 mg/dL Desirable 200-240 mg/dL Borderline >240 mg/dL High Risk LAB L501.5000 mg/dL Normal TRIG 95 Result Comment: The drugs N-Acetylcysteine and Metamizole may falsely depress this assay. Serum Triglycerides Reference Interval Normal <150 mg/dL Borderline high 150 - 199 mg/dL High 200 - 499 mg/dL Very High > or = 500 mg/dL LAB L501.6400 mg/dL Normal HDL 70 Result Comment: The drugs N-Acetylcysteine and Metamizole may falsely depress this assay. Reference Range HDL <40 mg/dL Low HDL Cholesterol HDL >or= 60 mg/dL High HDL Cholesterol LAB L501.6500 0-130 mg/dL High LDL 145 LAB L501.6600 5-40 mg/dL Normal VLDL 19 Performed By: #### L500.4100, L501.6710, L505.7010 #### [facility] [address] [facility] [place], [place], [address] CRP Collected: 06/24/2017 Status: F Source: [place] 5:[address] [facility] REPOSITORY TYPE CODE TESTS RESULT OUT OF RANGE REFERENCE UNITS LAB L501.6710 0.0-3.0 mg/L High 18.10 C-REACTIVE PROT Result Comment: C-Reactive Protein (CRP) provides useful information for the diagnosis, therapy and monitoring of inflammatory processes and associated diseases. For the evaluation of Relative Risk for Cardiovascular Disease, a High Sensitivity CRP (HSCRP) should be ordered. Performed By: #### L500.4100, L501.6710, L505.7010 #### [facility] [address] [place], [address] RHEUMATOID FACTOR Collected: 06/24/2017 Status: F Source: [place] 5:[address] [facility] REPOSITORY TYPE CODE TESTS RESULT OUT OF RANGE REFERENCE UNITS LAB L505.7010 <15 IU/mL Normal RHEUMATOID FAC < 10.0 Performed By: #### L500.4100, L501.6710, L505.7010 #### [facility] [address] [place], [address] ERYTHROCYTE SED RATE Collected: 06/24/2017 Status: F Source: [place] 5:[address] [facility] REPOSITORY TYPE CODE TESTS RESULT OUT OF RANGE REFERENCE UNITS LAB L102.0000 0-30 mm/hr Normal SED RATE 23 Performed By: #### L101.9900 #### [facility] [address] [place], [address] VITAMIN B12 Collected: 06/24/2017 Status: F Source: [place] 5:[address] [facility] REPOSITORY TYPE CODE TESTS RESULT OUT OF REFERENCE UNITS RANGE LAB L503.0105 211-911 pg/mL High Vitamin B12 1279 Performed By: #### L503.0105 #### [facility] [address] [place], [address] NAT W/ REFLEX MULT Collected: 06/24/2017 Status: F Source: [place] CONFIRM 5:[address] [facility] REPOSITORY TYPE CODE TESTS RESULT OUT OF RANGE REFERENCE UNITS LAB L3100.5475 Negative Normal Negative NAT-DIRECT Result Comment: Performed at: - [facility] [address] [id number] Sensitizer: Marcello Long PhD, Phone: [phone] Performed By: #### L3100.5450 #### [facility] (refer to report for specific site) refer to report for address and phone number TROPONIN-I Collected: 06/24/2017 Status: F Source: [place] 1:[address] [facility] REPOSITORY Order Comment: 'TROP' Serial specimen #1, #2, #3, or #4: 4 TYPE CODE TESTS RESULT OUT OF RANGE REFERENCE UNITS LAB L501.4010 <0.06 ng/mL High 0.29 TROPONIN-I Result Comment: TROPONIN-I EXPECTED VALUES <0.05 NEGATIVE 0.06 - 0.59 AT RISK OF MT > OR = 0.60 SUGGEST MT Performed By: #### L501.4010 #### [facility] [address] [place], [address] HISTORY AND PHYSICAL Observed: 06/23/2017 Status: F Source: [place]AM 9:[address] [facility] REPOSITORY [facility] Medical Records Department [address] [place] [address] History and Physical 06/23/17 1420 MR#: [id number] Acct: [id number] Name: JL SANCHEZ Rep #: [id number] : 1935 81 From: Aron ARMSTRONG PCP: Becka Young DO Status: ADM MYRON Y Location: [place] [address] ADDENDUM by Olivia Chavez on 06/23/17 at 2112 Code Visit This patient was seen in conjunction with Aron ARMSTRONG. I have independently interviewed and examined the patient and reviewed pertinent historical, laboratory and other data. Please refer to history and physical note for details of this patient's presentation, findings and recommendations. I have reviewed Aron's note and concur fully with documented findings. In brief, patient is a 81YO female admitted with fever, myalgias and arthralgias, back pain and poor appetite. she is Shinto and is cared for by her dtr who tells me that she was unresponsive for 5 minutes this morning. She tells us that this happens when she is sick but the last time she was sick and became unresponsive was about 1 year ago. She did not witness any tonic clonic type activity. She has been worked up for this in the past by cardiology and nothing has ever been found. Multiple other family members have been sick with fevers, cough, aches and pains. Temp in the ER was 100.1 F. Systolic blood pressure was 160/93, pulse rate was 73, respiratory rate was 20 and she was 100% saturated on room air. She was pancytopenic with a white blood cell count of 4.2, hemoglobin of 11.5 and platelets of 136,000. These findings are basically stable from findings over the past year. Serum bicarb was low at 19 and the potassium was 3.4. BUN was 12 with a creatinine of 0.73. LFTs were unremarkable. The troponin was elevated at 0.08 in the emergency room and the second troponin is 0.28. [place] screen was negative. Rapid strep was negative. Chest x-ray showed no acute infiltrates, pulmonary vascular congestion or pleural effusions. Respiratory panel and influenza were also negative. Blood and urine cultures were sent. Echocardiogram today shows a ejection fraction of 65% with stage I diastolic dysfunction. There is +1 MR and 1-+2 TR. Right ventricular systolic pressure was estimated to be 53. Physical examination: alert and oriented X 3. she is appropriate. She is lying flat in bed with no cough or SOB No JVD, brisk carotid upstroke with good pulse volume, Mucous membranes are dry and the tongue is coated. There is erythema in the posterior pharynx and the soft palate with some patchy areas white. No cervical adenopathy, trachea is on the midline. Lungs-clear to auscultation Heart-regular rate and rhythm, no murmur, no gallop, no rub Abdomen-soft, nontender, nondistended, normal bowel sounds present No rashes, no breakdown Nonfocal neural exam, no nuchal rigidity No red, swollen or warm joints Assessment: 1. febrile illness - suspect viral 2. pancytopenia - chronic, etiology? 3. NSTEMI - due to demand ischemia or does she have CAD 4. diastolic dysfunction 5. HTN 6. anxiety/depression on a very low dose of Zoloft 7. unresponsiveness - why? has been worked up on more than 1 occasion in the past and work ups have always been negative 8. pulmonary HTN I have discussed my assessment with Aron and orders have been written. Inpatient E AND M: 05233 Init Hosp L3 06/23/172111 <Electronically signed by Valeri Chavez DO> Date Valeri Chavez DO cc: NATHANIEL Crow; Olivia Chavez; Becka Young DO * Signed Problem List (1) Sepsis Status: Acute (2) Vasovagal syncope Status: Acute (3) GERD (gastroesophageal reflux disease) Status: Chronic (4) Anxiety and depression Status: Chronic (5) Pancytopenia Status: Chronic History of Present Illness Date of Admission: 06/23/16 Chief Complaint: malaise The patient is a 81 year old F who presents to the ER with chief complaint of feeling generally unwell ill, and lethargic. She began feeling ill on Wednesday, with her most notable features being mylagias of her proximal legs, back, neck, and with a headache, sore throat, and cough. She denies SOB. She has felt very weak on her feet today. Today she had an episode of passing out with a prodrome of dizziness and LH while walking. After she woke up, she felt nauseous and vomited and also has had some diarrhea. She is not on Abx. Per her daughter, syncope, common for her when she is ill and has had extensive workup with a diagnosis of orthostatic hypotension. She has had some PO intake but notes it has been diminished while ill. She has a fever on presentation and reports recent low grade fevers. Family reports multiple children in the family and contacts at [facility] are sick with URI like illnesses. She has had significant leg and back pain and her daughters have tried multiple pain medications for her at home like tramadol and norco. Influenza screen is negative. [] Past Medical History Past Medical History (Chronic Problems): Chronic Problems GERD (gastroesophageal reflux disease) (Chronic) Anxiety and depression (Chronic) Pancytopenia (Chronic) Allergies acetaminophen [From Esgic] Adverse Reaction (Verified 06/23/17 07:33) Unknown no allergy to tylenol per pt/family aspirin Adverse Reaction (Verified 06/23/17 07:33) Unknown buspirone HCl [From BuSpar] Adverse Reaction (Verified 06/23/17 07:33) Unknown butalbital [From Esgic] Adverse Reaction (Verified 06/23/17 07:33) Unknown caffeine [From Norgesic] Adverse Reaction (Verified 06/23/17 07:33) Unknown diazepam [From Valium] Adverse Reaction (Verified 06/23/17 07:33) Unknown doxycycline Adverse Reaction (Verified 06/23/17 07:33) Unknown erythromycin base Adverse Reaction (Verified 06/23/17 07:33) Unknown NSAIDS (Non-Steroidal Anti-Inflamma Adverse Reaction (Verified 06/23/17 07:33) Unknown orphenadrine citrate [From Norgesic] Adverse Reaction (Verified 06/23/17 07:33) Unknown Penicillins Adverse Reaction (Verified 06/23/17 07:33) Unknown promethazine HCl [From Phenergan] Adverse Reaction (Verified 06/23/17 07:33) Unknown Sulfa (Sulfonamide Antibiotics) Adverse Reaction (Verified 06/23/17 07:33) Unknown valdecoxib [From Bextra] Adverse Reaction (Verified 06/23/17 07:33) Unknown Home Medications: Ambulatory Orders Medication Instructions Recorded Sertraline HCl [Zoloft] 12.5 mg PO DAILY 10/09/14 TraMADol [Ultram] 50 mg PO Q4H PRN PRN 10/09/14 Surgical History: - - ovarectomy Lives: With Family Smoking Status: Never smoker Tobacco Use: Non-smoker Alcohol: None Drugs: None - *Family History Maternal History Items: Stroke Sibling History Items: Heart Disease - brother and sister Review of Systems Constitutional: Reports: Fever, Malaise, Weakness, Fatigue. Denies: Chills, Weight Change Eyes: Denies: Blurred vision, Double vision, Vision Change HEENT: Reports: -. Denies: Head Aches, Sinus Congestion, Sinus Drainage Cardiovascular: Reports: Light Headedness. Denies: Chest Pain, Chest Pressure, Chest Tightness, Edema, Heaviness, Orthopnea, Palpitations Respiratory: Reports: Cough. Denies: Pleuritic Pain, Shortness of Breath, Shortness of breath at rest, Shortness of breath upon exertion, Sputum production, Wheezing Gastrointestinal: Reports: Diarrhea, Nausea, Vomiting. Denies: Abdominal Pain Genitourinary: Denies: Dysuria Musculoskeletal: Reports: Neck Pain, - - BL leg myalgias proximal lower extremities. Denies: Joint Pain, Joint Tenderness Skin: Denies: Rash, Wounds Neurological: Reports: - - head neck pain. Denies: Focal weakness, Numbness, Tingling Psychiatric: Denies: Anxiety, Depression, Homicidal Ideations, Suicidal Ideations Hematologic/ Lymphatic: Denies: Easy Bruising, Easy Bleeding VTE Information - Inpt Only VTE Present on Admission: No VTE Mechan Device Prophylaxis: SCD's VTE Pharm Prophylaxis ordered?: Yes Patient Problems: Active and Suspected Problems Lactic acidosis (Acute) Hypokalemia (Acute) Metabolic acidosis (Acute) Sepsis (Acute) - Physical Exam General: Alert, Oriented x3, Cooperative HEENT: Atraumatic, PERRLA, EOMI, Normocephalic Oral: - - petechial rash posterior oropharynx, tonsils could not be visualized Neck: Supple, No JVD, Negative Carotid Bruits, - - no nuchal rigidity Lungs: Clear to auscultation, Normal air movement Cardiovascular: Regular rate, No murmurs Abdomen: Bowel Sounds Present, Soft, Non Tender Extremities: No edema, Capillary Refill Less than 3 Seconds Skin: No rashes, No breakdown Musculoskeletal: No Tenderness to Palpation of Joints or Extremities Neurological: Cranial nerves II-XII grossly intact, - - + kerinig sign. Psych/Mental Status: Normal Affect, Appropriate, Alert and oriented to time, place, person, mood and affect Vital Signs Temp Pulse Resp BP Pulse Ox 100.1 F H 72 14 139/66 H 98 06/23/17 13:15 06/23/17 13:20 06/23/17 13:15 06/23/17 13:17 06/23/17 13:15 Oxygen Delivery Method Room Air Weight: 54.8 kg Body Mass Index (BMI) 20.7 Laboratory Tests Past 24 Hrs Magnesium 1.9 Total Bilirubin 0.30 Assessment/Plan Active and Suspected Problems Lactic acidosis (Acute) Hypokalemia (Acute) Metabolic acidosis (Acute) Sepsis (Acute) 1. Acute sepsis 2/2 acute febrile illness 2/2 URI suspect viral- pt presents with generalized malaise, lethargy, cough, sore throat, leg, back, neck pain and headache. She has a petechial rash on her oropharynx and initially had a positive Kernigs sign right leg on extension although this reaction only occurred once so this may have been musculoskeletal pain. She has a fever and mild leukopenia although she has chronic pancytopenia and last time she was here the leukopenia was more marked. She also had a syncopal episode today suspect 2/2 vasovagal syncope due to being ill, with some nausea and vomiting, and recent reported diarrhea as well. Will check blood cultures, viral panel, strep A rapid test, mono test. Repeat Lactate was unable to be drawn after multiple attempts. Pt has had multiple sick contacts in her family and at [facility] recently. 2. Syncope - suspected vasovagal. Maintain on tele. EKG NSR. Echo pending. Hydrate with IV fluids and check orthos. This could also have been precipitated by the multiple narcotics she was administered by her daughter to help with her severe BL proximal leg pain 3. Hx Pancytopenia - etiology unclear. 4. GERD - continue pepcid 5. Depression/Anx - continue home meds 6. Mild hypokalemia - replete and follow. 7. Thrush - nystatin swish/swallow DVT ppx: lovenox DC planning: weakness 2/2 above illness, PTOT. This patient was seen by Aron Crow PA-C under the supervision of Doctor Jocelyn. 06/23/17 1520 <Electronically signed by Aron ARMSTRONG> Date Aron ARMSTRONG 06/23/172051<Electronically signed by Valeri Chavez DO> Cosigner Signature: Date (if applicable) Valeri Chavez DO CC: NATHANIEL Crow; Olivia Chavez; Becka Young DO Signed TROPONIN-I Collected: 06/23/2017 Status: F Source: [place] 7:[address] [facility] REPOSITORY Order Comment: 'TROP' Serial specimen #1, #2, #3, or #4: 3 TYPE CODE TESTS RESULT OUT OF RANGE REFERENCE UNITS LAB L501.4010 <0.06 ng/mL High 0.28 TROPONIN-I Result Comment: TROPONIN-I EXPECTED VALUES <0.05 NEGATIVE 0.06 - 0.59 AT RISK OF MT > OR = 0.60 SUGGEST MT Performed By: #### L501.4010 #### [facility] [address], [address] EMERGENCY DEPARTMENT Observed: 06/23/2017 Status: F Source: [place] SUMMARY 5:[address] [facility] REPOSITORY [facility] Medical Records Department [address] [place] [address] Emergency Department Summary 06/23/17 1005 MR#: [id number] Acct: [id number] Name: JL SANCHEZ Rep #: [id number] : 1935 81 From: Tho Calhoun MD PCP: Becka Young DO Status: ADM MYRON - ER Visit Summary Date of Service: 06/23/17 Chief Complaint: Cough History of Present Illness: The patient is a [address] Young. She reports that she has a cough that began 3 days ago. It is nonproductive. She has had diffuse myalgias and arthralgias. Subjective fever and chills. She did not get a flu shot. She has been around family members who do have the flu. Patient complains of a sore throat. She has been nauseated and vomited once. No blood or emesis. She also had an episode of diarrhea. No blood in her stools. She also complains of generalized weakness. Physical Examination: Vitals: Stable. Afebrile. General: Well-nourished and well-developed. Head: Normocephalic atraumatic. Neck: Supple, no lymphadenopathy. No JVD. Nontender. Cardiovascular: Regular rate and rhythm. 2 out of 6 systolic murmur. Respiratory: No respiratory distress. Clear to auscultation bilaterally. Abdominal: Soft, nontender, nondistended, normal bowel sounds. No guarding, rebound, or peritoneal signs. Back: Nontender. Extremities: Nontender, no edema. Skin: Normal color, no rash. Neurologic: Alert and oriented 3. Cranial nerves II through XII are intact. Normal strength and sensation. Psych: Normal affect. Test Results: EKG is sinus at 61 with no acute changes. CBC is marked for a white count of 4.2 with 18 monocytes. H AND H is 11.5 and 34.8. Platelets are 136. Chem-7 is marked for potassium at 3.4, chloride 108, and CO2 of 19. Lactic acid is 3.0. Influenza is negative. Chest x-ray shows chronic changes without infiltrate. UA is negative. Emergency Department Course and Treatment: Patient was treated with morphine and Zofran for her pain and nausea. She was given a liter of normal saline. She is resting comfortably. Treatment Plan: Patient is too weak to transfer from the bed to even a bedside commode. She will be discussed with the hospitalist for admission. Disposition: Admitted in stable condition. Impression: 1. URI. 2. Lactic acidosis. 3. Generalized weakness. This note was generated with [employer] dictation software. It may contain incorrect words, spelling, and punctuation that were not noted in review of the chart prior to signing ED Disposition - Plan for ED Patient: Chief Complaint: Nausea/Vomiting Referrals: Becka Young, DO [Primary Care Provider] - What to do if you have Problems For any increased pain, shortness of breath, bleeding, nausea or vomiting, chest pain, or any unexpected problems, contact your Primary Care Provider. Call [facility] ([phone]) or report to the closest Emergency Room. Call 911 if necessary. 06/23/17 1712 <Electronically signed by Tho Calhoun MD> Date Tho Calhoun MD Cosigner Signature (If Indicated): Date CC: Becka Young DO BASIC METABOLIC Collected: 06/23/2017 Status: F Source: [place] PROFILE ([facility]) 5:[address] [facility] REPOSITORY TYPE CODE TESTS RESULT OUT OF RANGE REFERENCE UNITS LAB L501.0100 70-110 mg/dL Normal GLU 85 LAB L501.1000 7-18 mg/dL Normal BUN 8 LAB L501.1100 0.55-1.02 mg/dL Low 0.52 CREAT,SERUM Result Comment: The validity of the calculated GFR AND GFRAA in patients over 70 years has not been determined. Clinical correlation is essential. LAB L501.1110 >60 mL/min Normal EST GFR 120 Result Comment: Non- GFR Calc LAB L501.1115 >60 mL/min Normal EST GFR - AA 146 Result Comment: GFR Calc LAB L501.1255 ml/min Normal Estimated CRCL 38.75 LAB L501.1300 10-20 RATIO Normal BUN/CRE 15.4 LAB L501.2200 8.5-10 mg/dL Low .1 CA 7.9 LAB L501.5300 136-14 mmol/L Normal 5 NA 138 LAB L501.5600 3.5-5. mmol/L Normal 1 K 3.7 LAB L501.5900 98-107 mmol/L Normal CL 106 LAB L501.6100 21.0-3 mmol/L Normal 2.0 CO2 24.0 LAB L501.6200 5-15 Normal GAP 8 Performed By: #### L500.2500 #### [facility] [address] [place], [address] Observed: 06/23/2017 Status: F Source: [place] STREP A (THROAT 4:[address] [facility] RAPID LAST) REPOSITORY Order Date: 06/23/17 Has pt arrived? Y Strep A Rapid Rapid Strep A Screen NEGATIVE A Disk (Conf. Cult) Negative for Strep Group A : All NEGATIVE screens will be confirmed with a culture. Performed By: #### M100.676 #### [facility] [address] [place], [address] ECHOCARDIOGRAM COMPLETE Observed: 06/23/2017 Status: F Source: [place] 3:[address] [facility] REPOSITORY [facility] Cardiovascular Services [address] [place] [address] Echo Complete 06/23/17 1432 MR#: [id number] Acct: [id number] Name: JL SANCHEZ Rep #: [id number] : 1935 81 From: Eligio Campbell MD Attending Dr: Olivia Chavez Status: ADM MYRON Ordering Dr: Valeri Chavez DO Date: 06/23/17 Location: [facility] Sex: F C Admitted: 06/23/17 Reason For Study: SYNCOPE Procedure This was a 2D Doppler, Color Flow transthoracic echocardiogram. Exam performed portable in patient room. Left Ventricle Normal size and thickness. The estimated ejection fraction is 65 %. Stage 1 diastolic dysfunction. No regional wall motion abnormalities noted. Right Ventricle Normal size and thickness. Normal systolic function. Atria Normal left atrium. Normal right atrium. Prominent eustachian valve. Normal atrial septum. Mitral Valve Mild diffuse mitral valve thickening. Mild mitral annular calcification extending into the posterior leaflet. Mild (1+) mitral valve insufficiency. Tricuspid Valve Normal tricuspid valve. Mild to moderate (1-2+) tricuspid valve insufficiency. Right ventricular systolic pressure estimated to be 53 mmHg. Moderate pulmonary hypertension. Aortic Valve Trisinus/trileaflet aortic valve. Pulmonic Valve Normal pulmonic valve. Great Vessels Normal aortic root. Normal arch. The inferior vena cava is dilated. Inferior vena cava collapse with sniff. Pericardium/Pleural No pericardial effusion. MMode/2D Measurements AND Calculations LVIDd: 3.9 cm IVSd: 1.0 cm Ao root diam: 3.1 cm LVIDs: 2.5 cm LVPWd: 0.88 cm LA dimension: 3.7 cm RVDd: 3.4 cm FS: 36.5 % LAV(MOD-bp): 45.0 ml LA A4 area: 16.9 cm2 RA A4 area: 14.1 cm2 LAV(MOD-bp) Indexed: 29.1 ml/m2 LAV(MOD-sp2): 40.7 ml LAV(MOD-sp4): 47.1 ml Doppler Measurements AND Calculations MV E max jona: 66.6 cm/sec Lat Peak E' Jona: 8.5 cm/sec Med Peak E' Jona: 7.6 cm/sec MV A max jona: 88.3 cm/sec E/E' lat: 7.8 E/E' med: 8.8 MV E/A: 0.75 Ao V2 max: 139.8 cm/sec LV V1 max: 98.9 cm/sec PA V2 max: 84.6 cm/sec Ao max P.8 mmHg LV V1 max P.9 mmHg TR max jona: 339.8 cm/sec TR max P.2 mmHg Interpretation Summary The estimated ejection fraction is 65 %. Stage 1 diastolic dysfunction. Mild (1+) mitral valve insufficiency. Mild to moderate (1-2+) tricuspid valve insufficiency. Right ventricular systolic pressure estimated to be 53 mmHg. Moderate pulmonary hypertension. There is no comparison study available. Ordering Physician: Olivia Chavez Referring Physician: BECKA YOUNG Performed By: Roxana Cuellar, RDCS, RVT 06/23/171531 Date Eligio Campbell MD CC: Olivia Chavez; Becka Young DO Date Dictated: 06/23/17 1432 Date Transcribed: 06/23/171531 Reservation Sales Agent: Signed LIVER PROFILE Collected: 06/23/2017 Status: F Source: [place] 1:[address] [facility] REPOSITORY Order Comment: 'TROP' Serial specimen #1, #2, #3, or #4: 2 TYPE CODE TESTS RESULT OUT OF RANGE REFERENCE UNITS LAB L501.1500 6.4-8.2 g/dL Normal T PROT 7.0 LAB L501.1800 3.4-5.0 g/dL Low ALB 3.3 Result Comment: Please note revised Albumin AND Globulin reference range effective 2017. LAB L501.1950 2.2-4.2 g/dL Normal GLOB 3.7 LAB L501.4100 15-37 U/L Normal AST 24 LAB L501.4305 45-117 U/L Normal ALK P 92 LAB L501.4405 12-78 U/L Normal ALT 22 LAB L501.4600 0.20-1.00 mg/dL Normal T BILI 0.30 LAB L501.4700 0.00-0.30 mg/dL Normal D BILI 0.09 Performed By: #### L500.3400, L501.4010, L501.5200, L501.9520 #### [facility] [address] [place], [place], [address] TROPONIN-I Collected: 06/23/2017 Status: F Source: [place] 1:[address] [facility] REPOSITORY Order Comment: 'TROP' Serial specimen #1, #2, #3, or #4: 2 TYPE CODE TESTS RESULT OUT OF RANGE REFERENCE UNITS LAB L501.4010 <0.06 ng/mL High 0.08 TROPONIN-I Result Comment: TROPONIN-I EXPECTED VALUES <0.05 NEGATIVE 0.06 - 0.59 AT RISK OF MT > OR = 0.60 SUGGEST MT Performed By: #### L500.3400, L501.4010, L501.5200, L501.9520 #### [facility] [address] [place], [place], [address] MAGNESIUM Collected: 06/23/2017 Status: F Source: [place] 1:[address] [facility] REPOSITORY Order Comment: 'TROP' Serial specimen #1, #2, #3, or #4: 2 TYPE CODE TESTS RESULT OUT OF RANGE REFERENCE UNITS LAB L501.5200 1.8-2.4 mg/dL Normal MG 1.9 Performed By: #### L500.3400, L501.4010, L501.5200, L501.9520 #### [facility] [address] [place], [address] THYROID STIM HORMONE Collected: 06/23/2017 Status: F Source: [place] ([facility]) 1:[address] [facility] REPOSITORY Order Comment: 'TROP' Serial specimen #1, #2, #3, or #4: 2 TYPE CODE TESTS RESULT OUT OF RANGE REFERENCE UNITS LAB L501.9520 0.358-3.74 uIU/mL Normal TSH 1.08 Performed By: #### L500.3400, L501.4010, L501.5200, L501.9520 #### [facility] [address] [place], [address] CPK TOTAL, CREATINE Collected: 06/23/2017 Status: F Source: [place] 12:[address] [facility] REPOSITORY TYPE CODE TESTS RESULT OUT OF RANGE REFERENCE UNITS LAB L501.3620 26-192 U/L Normal CPK TOTAL 68 Performed By: #### L501.3620 #### [facility] [address], [address] Observed: 06/23/2017 Status: F Source: [place] RESPIRATORY PANEL 11:[address] [facility] MOLECULAR REPOSITORY Has pt arrived? Y RP PANEL ADENOVIRUS Not Detected HUMAN METAPHNEUMO Not Detected INFLUENZA A Not Detected INFLUENZA A (SUBTYPE H1) Not Detected INFLUENZA A (SUBTYPE H3) Not Detected INFLUENZA B Not Detected PARAINFLUENZA 1 Not Detected PARAINFLUENZA 2 Not Detected PARAINFLUENZA 3 Not Detected PARAINFLUENZA 4 Not Detected RHINOVIRUS Not Detected RSV A Not Detected RSV B Not Detected NAAT METHOD Testing was performed using nucleic acid amplification Performed By: #### M100.638 #### [facility] [address] [place], [address] URINALYSIS, COMPLETE Collected: 06/23/2017 Status: F Source: [place] 10:[address] [facility] REPOSITORY Order Comment: Order Date: 06/23/17 How was Urine Obtained? HAND PLATE STACKER TO SPECIFY TYPE CODE TESTS RESULT OUT OF RANGE REFERENCE UNITS LAB L400.3000 Yellow COLOR Normal Yellow LAB L400.3050 Clear Normal CLARITY Clear LAB L400.3200 Normal mg/dl Normal GLUCOSE, UR Normal LAB L400.3300 Negative mg/dL Normal BILIRUBIN URINE Negative LAB L400.3400 Negative mg/dl High 50 KETONE UR LAB L400.3465 1.002-1.030 Normal SP.GR. DIPSTX 1.010 LAB L400.3550 5.0 - 8.0 pH UR Normal 6.5 LAB L400.3600 Negative mg/dl PROT Normal DIPSTX Negative LAB L400.3700 Normal mg/dl Normal UROBILI Normal LAB L400.3750 Negative Normal NITRITE UR Negative LAB L400.3780 Negative /ul Normal OCCULT BLOOD-UR Negative LAB L400.3800 Negative /ul LEUK Normal ESTERASE Negative LAB L400.4050 0-5 /hpf WBC Normal 0-5 SEEN LAB L400.4100 0-5 /hpf 0 Normal RBC-UA SEEN LAB L400.4150 5-10 /hpf SQUAM Normal EPI 0-5 SEEN LAB L400.4300 None Seen /hpf 0 Normal BACTERIA SEEN LAB L400.4350 <or=2+ /hpf Normal MUCUS, URINE RARE Performed By: #### L400.0001 #### [facility] [address] [place], [place], [address] Observed: 06/23/2017 Status: F Source: [place] CULTURE, URINE 10:[address] [facility] REPOSITORY Order Date: 06/23/17 Has pt arrived? Y Urine Culture Culture exhibits no growth. Performed By: #### M100.0650 #### [facility] [address] [place], [address] CBC W/DIFF, AUTOMATED Collected: 06/23/2017 Status: F Source: [place] 9:[address] [facility] REPOSITORY Order Comment: REDRAW. PREVIOUS SPECIMEN REJECTED DUE TO SPECIMEN BEING CLOTTED. 06/23/17 0901 Yosi Sommer. TYPE CODE TESTS RESULT OUT OF RANGE REFERENCE UNITS LAB L100.1000 4.4-11.0 K/mm3 Low WBC 4.2 LAB L100.1200 4.2-5.4 M/mm3 Low RBC 3.88 LAB L100.1300 12.0-15.0 g/dl Low HGB 11.5 LAB L100.1400 37-47 % Low HCT 34.8 LAB L100.1500 81-99 fL Normal MCV 89.7 LAB L100.1600 27.0-32.0 pg Normal MCH 29.6 LAB L100.1700 32-36 g/gl Normal MCHC 33.0 LAB L100.1810 11.6-14.6 % Normal RDW CV 14.2 LAB L100.1820 35.1-43.9 fl High RDW SD 46.6 LAB L100.1900 150-450 K/mm3 Low PLT 136 LAB L100.2000 6.2-12.0 fl Normal MPV 10.4 LAB L100.2100 47-70 % Normal NEUT% 59.7 LAB L100.2200 19-41 % Normal LY% 20.9 LAB L100.2300 0-10 % High MONO% 17.5 LAB L100.2400 0-5 % Normal EO% 1.2 LAB L100.2500 0-1 % Normal BASO% 0.5 LAB L100.2550 0.0-0.9 % Normal IM GRAN % 0.200 Result Comment: IG% - Immature Granulocytes (promyelocytes, myelocytes and metamyelocytes) > 1% indicates that a LEFT SHIFT is Present. LAB L100.2620 2.0-7.7 X10 3/uL Normal Absolute Neut 2.5 LAB L100.2720 0.83-4.51 X10 3/ul Normal Absolute Lymph 0.87 Performed By: #### L100.0100 #### [facility] [facility] [place], [address] MONOTEST Collected: 06/23/2017 Status: F Source: [place] 9:[address] [facility] REPOSITORY TYPE CODE TESTS RESULT OUT OF RANGE REFERENCE UNITS LAB L700.5700 Negative Normal MONO Negative Performed By: #### L700.5500 #### [facility] [address] [facility] [place], [address] Observed: 06/23/2017 Status: F Source: [place] INFLUENZA A+B (RAPID 9:[address] [facility] LAST) REPOSITORY FLU A/B Rapid Negative test results should be confirmed by culture. Order Rapid Viral Culture for Influenzae A+B ([id number]) if clinically indicated. Influenza Ag, Direct Presumptive NEGATIVE for Influenza A/B Antigen (See Note) Performed By: #### M101.0101 #### [facility] [address] [place], [place], [address] BASIC METABOLIC Collected: 06/23/2017 Status: F Source: [place] PROFILE (BMP) 8:[address] [facility] REPOSITORY TYPE CODE TESTS RESULT OUT OF RANGE REFERENCE UNITS LAB L501.0100 70-110 mg/dL Normal GLU 92 LAB L501.1000 7-18 mg/dL Normal BUN 12 LAB L501.1100 0.55-1.02 mg/dL Normal 0.73 CREAT,SERUM Result Comment: The validity of the calculated GFR AND GFRAA in patients over 70 years has not been determined. Clinical correlation is essential. LAB L501.1110 >60 mL/min Normal EST GFR 81 Result Comment: Non- GFR Calc LAB L501.1115 >60 mL/min Normal EST GFR - AA 98 Result Comment: GFR Calc LAB L501.1255 ml/min Normal Estimated CRCL 36.95 LAB L501.1300 10-20 RATIO Normal BUN/CRE 16.4 LAB L501.2200 8.5-10 mg/dL Normal .1 CA 8.6 LAB L501.5300 136-14 mmol/L Normal 5 NA 139 LAB L501.5600 3.5-5. mmol/L Low 1 K 3.4 LAB L501.5900 98-107 mmol/L High CL 108 LAB L501.6100 21.0-3 mmol/L Low 2.0 CO2 19.0 LAB L501.6200 5-15 Normal GAP 12 Performed By: #### L500.2500 #### [facility] [address] [place], [place], [address] LACTIC ACID Collected: 06/23/2017 Status: F Source: [place] 8:[address] [facility] REPOSITORY Order Comment: Yes/No query for Sepsis Lactate Rule Y TYPE CODE TESTS RESULT OUT OF REFERENCE UNITS RANGE LAB L503.6005 0.4-2.0 mmol/L High LACTIC ACID 3.0 Result Comment: Critical Result(s) Called at: 09:20:24 06/23/2017 by: Marilyn Dai to Pankaj Performed By: #### L503.6005 #### [facility] [address] [place], [place], [address] Observed: 06/23/2017 Status: F Source: [place] CULTURE, BLOOD (WB) 8:[address] [facility] REPOSITORY BC No growth in 5 days. Performed By: #### M200.1000 #### [facility] [address] [place], [address] Observed: 06/23/2017 Status: F Source: [place] CULTURE, BLOOD (WB) 8:[address] [facility] REPOSITORY BC No growth in 5 days. Performed By: #### M200.1000 #### [facility] [address] [place], [address] CHEST PA AND LATERAL Observed: 06/23/2017 Status: F Source: [place] 7:46 AM [facility] REPOSITORY [facility] Imaging Services [address] [place] [address] Chest PA and Lateral MR#: [id number] Acct: [id number] Name: JL SANCHEZ Rep #: [id number] : 1935 F 81 From: Gurinder Graves MD PCP: Becka Young DO Status: REG ER Study: Chest PA and Lateral Date of Exam: 06/23/17 Exam# [id number] Ordering Dr: Tho Calhoun MD STUDY: X-RAY CHEST REASON FOR EXAM: Female, 81 years old. Cough. TECHNIQUE: AP and lateral views of the chest. COMPARISON: Comparison is made with prior study dated October 09, 2014. FINDINGS: EKG electrodes are seen. The lungs are clear and expanded. There is no demonstrated pleural abnormality. Normal size heart. Normal mediastinum and nadeem. Normal visualized pulmonary arteries. There is atherosclerotic tortuosity of the aortic arch and descending thoracic aorta. There are degenerative changes of the visualized thoracic spine. Normal visualized ribs, clavicles, and shoulders. There is no demonstrated abnormality of the visualized soft tissue structures of the upper abdomen. RAD/Chest PA and Lateral IMPRESSION: No acute abnormality is seen. Electronically Signed: Gurinder Graves MD at 10:17 EST Tel [phone], Service support , CC: Becka Young DO; Tho Calhoun MD Reservation Sales Agent: Signed ALLERGIES ALLERGIES DATE TYPE / CODE NAME / CODE REACTION SEVERITY SOURCE 12/29/2017 Drug buspirone Unknown Unknown [place] Allergy/416 HCl/[id number](RXNO Community 477133([facility] ED CT) Repository 12/29/2017 Drug promethazine Unknown Unknown [place] Allergy/416 HCl/[id number](RXNO Community 141115([facility] ED CT) Repository 12/29/2017 Drug orphenadrine Unknown Unknown [place] Allergy/416 citrate/[id number]( [facility] 698584([facility] ED CT) Repository 12/29/2017 Drug NSAIDS Unknown Unknown [place] Allergy/416 (Non-Steroidal Community 137192([facility] Anti-Inflamma/F0010 [facility] ED CT) 78624(RXNORM) Repository 12/29/2017 Drug Penicillins/[id number] Unknown Unknown [place] Allergy/416 476(RXNORM) Community 303600([facility] ED CT) Repository 12/29/2017 Drug Sulfa (Sulfonamide Unknown Unknown [place] Allergy/416 Antibiotics)/Q27390 Community 694835([facility] 0491([facility] ED CT) Repository 12/29/2017 Drug caffeine/[id number] Unknown Unknown [place] Allergy/416 (RXNORM) [facility] 045172([facility] ED CT) Repository 12/29/2017 Drug butalbital/[id number] Unknown Unknown [place] Allergy/416 23(RXNORM) [facility] 929222([facility] ED CT) Repository 12/29/2017 Drug diazepam/[id number] Unknown Unknown [place] Allergy/416 (RXNORM) Community 984266([facility] ED CT) Repository 12/29/2017 Drug aspirin/[id number]( Unknown Unknown [place] Allergy/416 RXNORM) Community 100682([facility] ED CT) Repository 12/29/2017 Drug doxycycline/A750418 Unknown Unknown [place] Allergy/416 748(RXNORM) [facility] 840120([facility] ED CT) Repository 12/29/2017 Drug erythromycin Unknown Unknown [place] Allergy/416 base/P767183529(RXN Community 665745([facility] ED CT) Repository 12/29/2017 Drug valdecoxib/[id number] Unknown Unknown [place] Allergy/416 03(RXNORM) [facility] 580769([facility] ED CT) Repository ENCOUNTERS ENCOUNTERS ADMIT/DISCHARGE ACCOUNT ADMITTING ENCOUNTER LOCATION SOURCE NUMBER CLASS 05/19/2018 [id number] Ambulatory [place] 7 [facility] ing:MTRAD Repository 01/18/2018 [id number] Ambulatory [place] 0 [facility] ing:RAD.ALLY Repository E 01/12/2018/ [id number] Trini, Inpatient [place] 8 0 [place] Encounter [facility] ing:JQ7Envj: Repository IV243Fuw: 1 01/12/2018 [id number] Trini, Ambulatory BMSBuilding:B [place] 9 Anders BLUE.[facility] Repository 01/12/2018 [id number] Trini Ambulatory BMSBuilding:B [place] 4 Anders BLUE.[facility] Repository 11/26/2017/ [id number] Hanny Bowers Ambulatory [place] 8 3 [facility] ing:LH7Qxfi: Repository FR777Jng: 1 11/26/2017/ [id number] Ambulatory BMSBuilding:W [place] 8 5 [facility] Repository 11/26/2017/ [id number] Ambulatory BMSBuilding:W [place] 8 5 [facility] Repository 11/25/2017/ [id number] Ambulatory BMSBuilding:W [place] 8 2 [facility] Repository 08/26/2017 [id number] Ambulatory [place] 5 [facility] ing:CVS Repository 08/26/2017 [id number] Ambulatory BMSBuilding:W [place] 0 [facility] Repository 07/26/2017 [id number] Ambulatory [place] 7 [facility] ing:BFHLAB Repository 06/23/2017/ [id number] Sementi, Ambulatory [place] 8 7 Olivia [facility] ing:PCURoom: Repository AGL898Rsa: 1 06/23/2017 [id number] Ambulatory BMSBuilding:B [place] 7 [place].[facility] Repository 06/23/2017 [id number] Ambulatory BMSBuilding:B [place] 8 [place].[facility] Repository 06/23/2017 [id number] Ambulatory BMSBuilding:B [place] 3 [place].[facility] Repository 06/23/2017/ [id number] Ambulatory BMSBuilding:W [place] 8 1 [facility] Repository PAYERS PAYERS ENCOUNTER GUARANTOR PAYER SUBSCRIBER SOURCE 05/19/2018 ELIG[place] Trammell Primary Insurance:[facility] JL Trammell [place] [id number] TR [facility] [address], Number: [id number] [address]Ztn: [id number] Repository Date:2018-05-19 () 05/19/2018 Secondary JL M [place] Insurance:[facility] WEAVERDOB: [facility]ly [facility] [id number] Hospital Number: Repository [id number] Date:6055-23-77VFDUWJ [place] [id number] [address] [address]DS: 05/19/2018 Tertiary NOT GIVENUNK [place] Insurance:SELF PAY [facility] Number: Effective Repository Date:2018-05-19 01/18/2018 ELIGIO [place]ell Primary [place]L [place] [id number] TR Insurance[facility]DOB: [address] [id number] Vista Regional [facility] [address]Bsp: Number: Repository [id number] (HP) Date:5251-29-90OYSHAM [place]OR [place] [id number] [address] [address]WJ: 01/18/2018 Secondary NOT GIVENUNK [place] Insurance:SELF PAY [facility] Number: Effective Repository Date:2018-01-18 01/12/2018 ELIGIO M Primary Insurance:[facility] JL Trammell [place] [id number] PACKAGE [facility] WEAVERDOB: [facility] Number: [id number], [id number] Repository [place] [address]Rya: Date:2017-11-11 () 01/12/2018 Secondary JL Trammell [place] Insurance[facility] [id number] Hospital Number: Repository [id number] Date:2310-00-25UGGLDH [place] [id number] [address] [address]TH: 01/12/2018 Tertiary NOT GIVENUNK [place] Insurance:SELF PAY [facility] Number: Effective Repository Date:2017-11-11 01/12/2018 ELIGIO M Primary JL Trammell [place] [id number] TR Insurance:[facility] WEAVERDOB: [address] [id number] Hospital [place] [address]Fuz: Number: Repository [phone] () Date:7810-35-54VPTXIJ [place] [id number] [address] [address]WB: 01/12/2018 Secondary NOT GIVENUNK [place] Insurance:SELF PAY [facility] Number: Effective Repository Date:2018-01-12 01/12/2018 ELIGIO M Primary [place] [id number] TR Insurance[facility] [address] [id number] Hospital [place] [address]Nbh: Number: Repository [id number] (HP) Date:0531-85-01LUAJWI [place] [id number] [address] [address]RK: 01/12/2018 Secondary NOT GIVENUNK [place] Insurance:SELF PAY [facility] Number: Effective Repository Date:2018-01-12 11/26/2017 ELIGIO Trammell Primary JL WEAVERDOB: [place] [id number] Insurance:[facility] [id number], Number: Repository [place] [address]Yhd: [phone] Date:9120-14-92QLGXXJ () [place]OR [place] [id number] [address] [address]KI: 11/26/2017 Secondary NOT GIVENUNK [place] Insurance:SELF PAY [facility] Number: Effective Repository Date:2017-11-25 11/26/2017 ELIGIO M Primary JL Trammell [place] [id number] Insurance:[facility]: [facility] [id number], Number: Repository [place] [id number]: [phone] Date:2051-98-92WYURAV () [place] [id number] [address] [address]DX: 11/26/2017 Secondary NOT GIVENUNK [place] Insurance:SELF PAY [facility] Number: Effective Repository Date:2017-11-26 11/26/2017 ELIGIO [place] Primary JL WEAVERDOB: [place] [id number] Insurance:[facility] [id number], Number: Repository [place] [id number]: [phone] Date:5012-08-74IMATUL () [place] [id number] [address] [address]UA: 11/26/2017 Secondary NOT GIVENUNK [place] Insurance:SELF PAY [facility] Number: Effective Repository Date:2017-11-26 11/25/2017 ELIGIO Trammell [place] [id number] TR Insurance:[facility] WEAVERDOB: [address] [id number] Hospital [place] [id number]: Number: Repository [phone] () Date:2727-83-62GWWBOW [place] [id number] [address]SV: 11/25/2017 Secondary NOT GIVENUNK [place] Insurance:SELF PAY [facility] Number: Effective Repository Date:2017-11-25 08/26/2017 ELIGIO HEIWTTAVERDOB: [place] [id number] Insurance:[facility] [id number], Number: Repository [place] [address]Dqv: [phone] Date:1431-92-42EIZENG (HP) [place] [id number] [address]PZ: 08/26/2017 Secondary NOT GIVENUNK [place] Insurance:SELF PAY [facility] Number: Effective Repository Date:2017-08-10 08/26/2017 EILGIO HEWITTAVERDOB: [place] [id number] Insurance:[facility] [id number], Number: Repository [place] [id number]: [phone] Date:4852-40-78YQXRNJ (HP) [place] [id number] [address] [address]ZF: 08/26/2017 Secondary NOT GIVENUNK [place] Insurance:SELF PAY [facility] Number: Effective Repository Date:2017-08-26 07/26/2017 ELIGIO M Primary JL WEAVERDOB: [place] [id number] Insurance:[facility] [id number], Number: .Effective Repository [place] [id number]: Date:8118-68-40WZBYFS STAT[place] () [id number] [address] [address]DU: 07/26/2017 Secondary NOT GIVENUNK [place] Insurance:SELF PAY [facility] Number: Effective Repository Date:2017-07-26 06/23/2017 ELIGIO [place] Primary JL WEAVERDOB: [place] [id number] Insurance:[facility] [id number], Number: [place] [id number]: [id number] Date:0518-46-61GWFCRO () [place]OR [place] [id number] [address] [address]KX: 06/23/2017 Secondary NOT GIVENUNK [place] Insurance:SELF PAY [facility] Number: Effective Repository Date:2017-06-23 06/23/2017 ELIGIO [place] Primary JL WEAVERDOB: [place] [id number] Insurance:[facility] [id number], Number: .Effective Repository [place] [id number]: Date:0620-06-36JOZSME STATOR [place] () [id number] [address] [address]YB: 06/23/2017 Secondary NOT GIVENUNK [place] Insurance:SELF PAY [facility] Number: Effective Repository Date:2017-06-23 06/23/2017 ELIGIO [place] Primary JL WEAVERDOB: [place] [id number] Insurance:[facility] [id number], Number: .Effective Repository [place] [id number]: Date:6202-86-54PFXNIY STATOR [place] (HP) [id number] [address] [address]TJ: 06/23/2017 Secondary NOT GIVENUNK [place] Insurance:SELF PAY [facility] Number: Effective Repository Date:2017-06-23 06/23/2017 ELIGIO M Primary JL WEAVERDOB: [place] [id number] Insurance:[facility] [id number], Number: .Effective Repository [place] [address]Cvy: Date:4392-37-88CNAYQY [place] (HP) [id number] [address] [address]NK: 06/23/2017 Secondary NOT GIVENUNK [place] Insurance:SELF PAY [facility] Number: Effective Repository Date:2017-06-23 06/23/2017 ELIGIO M Primary JL WEAVERDOB: [place] [id number] Insurance:[facility] [id number], Number: [place] [id number]: [id number] Date:9302-38-45GASRBX () [place] [id number] [address] [address]AS: 06/23/2017 Secondary NOT GIVENUNK [place] Insurance:SELF PAY [facility] Number: Effective Repository Date:2017-06-23
== END ==
PROVIDERS: Family Provider Family Medicine; PCP Family Medicine; Referring Provider Family Medicine; Visit Provider Family Medicine
DX: K59.00 Constipation, unspecified (principal); R14.0 Abdominal distension (gaseous)
CPT/HCPCS: 74018

== ENCOUNTER 2018-09-26 13:55 | Emergency (ER) | payer OTHER, SELFPAY ==
[2018-09-26 13:57] VITALS: BP 165/81; PULSE 78; RESP 17; TEMP 37.2; O2SAT 98; BMI 19.0
--- NOTE | 2018-09-26 14:15 | CT_ITS ---
STUDY: CT BRAIN WITHOUT CONTRAST REASON FOR EXAM: Female, 83 years old. Increasing thickness. Headaches. RADIATION DOSAGE (If Supplied By Facility): CTDIvol = ( 44.99 ) mGy, DLP = ( 745.49 ) mGycm TECHNIQUE: Transaxial CT imaging of the brain was performed without administration of intravenous contrast material. Individualized dose optimization techniques were used for this CT. COMPARISON: Comparison is made with prior study dated November 25, 2017. FINDINGS: Normal soft tissue structures. Normal calvarium. There is mild cerebral atrophy with widening of the extra-axial spaces and ventricular dilatation. There are areas of decreased attenuation within the white matter tracts of the supratentorial brain, consistent with microvascular disease changes. Normal basal ganglia and thalami. Normal brainstem. Normal cerebellum. There is no intracranial hemorrhage. There are no findings of an acute ischemic infarction. Atherosclerotic calcification of the cavernous portions of the internal carotid arteries bilaterally. Normal visualized paranasal sinuses. CT/Brain/Head without Contrast IMPRESSION: Chronic involutional changes of the brain. Electronically Signed: Gurinder Graves, at 15:35 EDT , Service support ,
--- NOTE | 2018-09-26 14:15 | RAD_ITS ---
STUDY: X-RAY CHEST REASON FOR EXAM: Female, 83 years old. Chest pain. Tachycardia. TECHNIQUE: Single AP portable view of the chest. COMPARISON: Comparison is made with prior study dated November 25, 2017. FINDINGS: EKG electrodes are seen. Hyperinflation. Scattered calcified granulomas. There is no demonstrated pleural abnormality. Normal size heart. Normal mediastinum and nadeem. Normal visualized pulmonary arteries. There is atherosclerotic calcification of the aortic arch with tortuosity. There are diffuse degenerative changes of the visualized thoracic spine. Mild dextroscoliosis. Normal visualized ribs, clavicles, and shoulders. There is no demonstrated abnormality of the visualized soft tissue structures of the upper abdomen. RAD/Chest 1 View (Portable) IMPRESSION: Hyperinflation. The lungs are clear. Electronically Signed: Gurinder Graves, at 15:17 EDT , Service support ,
--- NOTE | 2018-09-26 14:15 | EKG12_ITS ---
Test Reason : CP Blood Pressure : / mmHG Vent. Rate : 070 BPM Atrial Rate : 070 BPM P-R Int : 160 ms QRS Dur : 082 ms QT Int : 400 ms P-R-T Axes : 079 055 051 degrees QTc Int : 432 ms Normal sinus rhythm Normal ECG Confirmed by ALPA CASTILLO, DIANE ([id number]), international editorial producer LUKE DAVIDSON ([id number]) on 09/28/2018 1:20:23 PM Referred By: KARTHIKEYAN Confirmed By:DIANE YUEN MD
[2018-09-26 14:28] LABS: Bacteria 0 SEEN /hpf (None Seen); Mucous, Urine 0 SEEN /hpf (<or=2+); Red Blood Cells-Urine 0 SEEN /hpf (0-5); Squamous Epithelial Cells - UA 0 SEEN /hpf (5-10); White Blood Cells 0 SEEN /hpf (0-5)
[2018-09-26 14:29] LABS: Color, Urine Straw (Yellow); Glucose, Dipstick Normal (Normal); Ketone-Dipstick Negative (Negative); Leukocyte Esterase-Dipstick Negative /ul (Negative); Nitrite-Dipstick Negative (Negative); Occult Blood-Urine Negative /ul (Negative); Protein-Dipstick 15 mg/dl (Negative); Urine Bilirubin Dipstick Negative (Negative); Urine Clarity Clear (Clear); Urine Urobilinogen Normal (Normal)
[2018-09-26 14:59] LABS: Absolute Lymphocyte Count 1.74 X10^3/ul (0.83-4.51); Absolute Neutrophil Count 2.1 X10^3/uL (2.0-7.7); Basophil# 0.03 X10^3/uL; Basophil% 0.7 % (0-1); Eosinophil# 0.11 X10^3/uL; Eosinophils% 2.4 % (0-5); Hematocrit 34.6 % (37-47); Hemoglobin 11.6 g/dl (12.0-15.0); Lymphocyte # 1.74 X10^3/ul (4.0); Lymphocyte % 38.8 % (19-41); Mean Corp Hgb Conc 33.5 g/gl (32-36); Mean Corpuscular Hgb 29.9 pg (27.0-32.0); Mean Corpuscular Volume 89.2 fL (81-99); Mean Platelet Vol. 10.9 fl (6.2-12.0); Monocyte# 0.53 X10^3/uL; Monocyte% 11.8 % (0-10); Neutrophil # 2.07 X10^3/uL (2.7-7.7); Neutrophil % 46.1 % (47-70); Platelet Count 226 K/mm3 (150-450); RBC Distribution Width CV 14.1 % (11.6-14.6); RBC Distribution Width SD 45.5 fl (35.1-43.9); Red Blood Count 3.88 M/mm3 (4.2-5.4); White Blood Count 4.5 K/mm3 (4.4-11.0)
[2018-09-26 15:00] LABS: POSITIVE COUNT NO; POSITIVE DIFFERENTIAL NO; POSITIVE MORPHOLOGY NO
[2018-09-26 15:09] LABS: Lactic Acid 1.2 mmol/L (0.4-2.0)
[2018-09-26 15:13] LABS: AST(SGOT) 20 U/L (15-37); Alanine Aminotransfer ALT/SGPT 20 U/L (13-56); Albumin, Serum 3.8 g/dL (3.2-5.0); Alkaline Phosphatase 98 U/L (45-117); Anion Gap 6 (5-15); BUN 11 mg/dL (7-18); BUN/Creat Ratio 14.2 RATIO (10-20); Calcium,Total 8.9 mg/dL (8.5-10.1); Chloride 108 mmol/L (98-107); Creatinine, Serum 0.77 mg/dL (0.55-1.02); EST Glomerular Filtration Rate 76 mL/min (>60); Est Glom Filt Rate - Afr Amer 92 mL/min (>60); Estimated Creatinine Clearance 36.65 ml/min; Globulin 3.9 g/dL (2.2-4.2); Glucose 86 mg/dL (74-106); Potassium 3.9 mmol/L (3.5-5.1); Protein, Total 7.7 g/dL (6.4-8.2); Sodium Level 140 mmol/L (136-145)
--- NOTE | 2018-09-26 16:01 | ED.DCSUM_ITS ---
- ER Visit Summary Date of Service: 09/26/18 Chief Complaint: Weakness and headache History of Present Illness: The patient is a [address] Young. Family reports she has a headache on the right side began 4 days ago. It is gradually gotten worse. The patient reports that it is now 6 out of 10 in severity.. They also reports the patient has been weak and had difficulty walking due to this over the past 2 days. Patient reports that she has had chest pain is been constant for the past 4 days. States that it is 2 out of 10 in severity. Physical Examination: Vitals: Stable. Afebrile. General: Well-nourished and well-developed. Head: Normocephalic atraumatic. Neck: Supple, no lymphadenopathy. No JVD. Nontender. Cardiovascular: Regular rate and rhythm. 2 out of 6 systolic murmur. Respiratory: No respiratory distress. Clear to auscultation bilaterally. Abdominal: Soft, nontender, nondistended, normal bowel sounds. No guarding, rebound, or peritoneal signs. Back: Nontender. Extremities: Nontender, no edema. Skin: Normal color, no rash. Neurologic: Alert and oriented ?3. Cranial nerves II through XII are intact. Normal strength and sensation. Psych: Normal affect. Test Results: EKG is sinus at 70 with no acute changes. Unchanged from November 2017. Troponin is negative. UA is normal. LFTs are normal. Chem-7 is remarkable for a chloride of 108. CBC is marked for an H&H of 11.6 and 34.6, segmented 46, monocytes of 12. Lactic acid is 1.2. Chest x-ray shows no acute disease. CT brain shows chronic changes. Emergency Department Course and Treatment: Patient is resting comfortably and refused pain medications. Her NIH scale is 0. I discussed the family at this time I do not have an explanation for her symptoms and that I would like to admit her to the hospital. They asked that I speak with Dr. Young first. I contacted him and spoke with him he states that with a negative workup he is fine with her going home. He would like to see her in the office this week. Treatment Plan: Patient's family is happy with this plan. She will be discharged instructions follow-up Dr. Young within 3 days for another exam. Return to emerge part for any worsening symptoms or concerns. Disposition: To home in improved and stable condition. Impression: 1. Generalized weakness. 2. Chest pain, atypical. 3. Cephalgia. This note was generated with [employer] dictation software. It may contain incorrect words, spelling, and punctuation that were not noted in review of the chart prior to signing ED Disposition - Plan for ED Patient: Instructions: ED Weakness [facility] Referrals: Robinson Young DO [Primary Care Provider] - 3-5 Days
[2018-09-26 16:32] VITALS: BP 159/62; PULSE 59; RESP 18; O2SAT 97
== END 2018-09-26 16:33 | disposition home or self-care (01) ==
LOC: ED 14:21
PROVIDERS: Emergency Provider Emergency Medicine; Family Provider Family Medicine; PCP Family Medicine
DX: R53.1 Weakness (principal); R51 Headache; R07.89 Other chest pain
CPT/HCPCS: 70450; 71045; 80053; 81001; 83605; 84484; 85025; 93005; 96360; 99284; J7030; J7040; A4216

== ENCOUNTER → 2019-05-31 09:21 | Outpatient (CLI) | payer OTHER, SELFPAY ==
--- NOTE | 2019-05-31 09:28 | RAD_ITS ---
STUDY: AIR-CONTRAST UPPER GI SERIES. REASON FOR EXAM: Female, 83 years old. Dysphagia. FLUOROSCOPY TIME (if supplied): ( 50 seconds ) minutes/seconds. 15 images were obtained. TECHNIQUE: The patient ingested barium. Multiple images of the esophagus, stomach and duodenum were obtained. COMPARISON: None. FINDINGS: There is evidence of a small sliding axial hernia with gastroesophageal reflux. No evidence of a esophageal mass or ulceration. The remaining of the stomach and duodenum is unremarkable. No evidence of mass lesion. No evidence of ulceration. RAD/Upper GI Series Only IMPRESSION: Small sliding hiatal hernia with gastroesophageal reflux. Electronically Signed: Gurinder Graves, at 13:26 EST , Service support ,
== END ==
PROVIDERS: Family Provider Family Medicine; PCP Family Medicine; Referring Provider Family Medicine; Visit Provider Family Medicine
DX: K44.9 Diaphragmatic hernia without obstruction or gangrene (principal); R13.10 Dysphagia, unspecified
CPT/HCPCS: 74246

== ENCOUNTER → 2019-06-05 11:59 | Outpatient (CLI) | payer SELFPAY, OTHER ==
[2019-06-05 09:13] VITALS: BMI 19.5
--- NOTE | 2019-06-05 12:12 | CT_ITS ---
STUDY: CT CHEST WITH CONTRAST REASON FOR EXAM: Female, 83 years old. Dysphagia. RADIATION DOSAGE (If Supplied By Facility): CTDIvol = ( 10.87 ) mGy, DLP = ( 462.04 ) mGycm TECHNIQUE: Transaxial imaging was performed following intravenous administration of 100cc ISOVUE 370. Multiplanar coronal and sagittal images were reformatted. Individualized dose optimization techniques were used for this CT. COMPARISON: None. FINDINGS: Minimal increased markings at the lung bases suggest some mild bibasilar scarring. There is no demonstrated pleural abnormality. Normal heart and pericardium. Normal mediastinum. Calcified right infrahilar lymph nodes. Normal enhanced pulmonary arteries. There is atherosclerotic calcification of the aortic arch . Normal osseous structures. Small hiatal hernia. CT/Chest WITH Contrast IMPRESSION: Small hiatal hernia. Mild degree of bibasilar scarring. Electronically Signed: Gurinder Graves, at 13:44 EST , Service support ,
--- NOTE | 2019-06-05 12:12 | CT_ITS ---
STUDY: CT ABDOMEN WITH CONTRAST REASON FOR EXAM: Female, 83 years old. Hiatal hernia. Dysphasia. RADIATION DOSAGE (If Supplied By Facility): CTDIvol = ( 10.87 ) mGy, DLP = ( 462.04 ) mGycm TECHNIQUE: Transaxial images were obtained post I.V. administration of 100CC ISOVUE 370, and oral contrast. Sagittal and coronal images were reconstructed. Individualized dose optimization techniques were used for this CT. COMPARISON: None. FINDINGS: The visualized lung bases are unremarkable. The visualized portions of the heart are within normal limits. Normal liver. I suspect a gallstone or polyps along the dependent portion of the gallbladder lumen. Normal spleen. Normal pancreas. Normal bilateral adrenal glands. Normal right kidney. Normal left kidney. There is a small hiatal hernia. Normal small intestine. A large amount of the barium is seen within the colon from prior esophagram causing beam hardening artifacts. The appendix is visualized and appears normal. There is diffuse atherosclerotic calcification of the abdominal aorta, without a demonstrated aneurysm. Normal inferior vena cava. Normal retroperitoneum. Normal abdominal wall. There are mild degenerative changes of the visualized lumbar spine. CT/Abdomen WITH IV Contrast IMPRESSION: Limited study due to the artifact caused by dense barium within the colon. Possible polyp or gallstone within the dependent portion of the gallbladder lumen. Electronically Signed: Gurinder Graves, at 13:43 EST , Service support ,
[2019-06-05 12:30] LABS: CREATININE FINGERSTICK 0.6 mg/dL (0.55-1.02)
== END ==
PROVIDERS: Family Provider Family Medicine; PCP Family Medicine; Referring Provider Surgery; Visit Provider Surgery
DX: K44.9 Diaphragmatic hernia without obstruction or gangrene (principal)
CPT/HCPCS: 71260; 74160; Q9967

== ENCOUNTER → 2020-09-04 10:49 | Outpatient (CLI) | payer OTHER, SELFPAY ==
[2019-06-06 08:30] VITALS: BMI 19.0
[2020-09-04 11:39] LABS: Absolute Lymphocyte Count 1.51 X10^3/uL (0.83-4.51); Absolute Neutrophil Count 1.9 X10^3/uL (2.0-7.7); Basophil# 0.04 X10^3/uL; Eosinophil# 0.16 X10^3/uL; Hematocrit 35.5 % (37-47); Hemoglobin 11.6 g/dL (12.0-15.0); Lymphocyte # 1.51 X10^3/ul (4.0); Lymphocyte % 37.4 % (19-41); Mean Corp Hgb Conc 32.7 g/dL (32-36); Mean Corpuscular Volume 91.7 fL (81-99); Mean Platelet Vol. 10.8 fl (6.2-12.0); Monocyte% 9.9 % (0-10); NRBC Flagged by Analyzer 0 % (0-5); Neutrophil # 1.92 X10^3/uL (2.7-7.7); Neutrophil % 47.5 % (47-70); Platelet Count 211 K/mm3 (150-450); RBC Distribution Width CV 13.3 % (11.6-14.6); RBC Distribution Width SD 44.8 fl (35.1-43.9); Red Blood Count 3.87 M/mm3 (4.2-5.4)
[2020-09-04 12:16] LABS: AST(SGOT) 26 U/L (15-37); Alanine Aminotransfer ALT/SGPT 27 U/L (13-56); Albumin, Serum 3.9 g/dL (3.2-5.0); Alkaline Phosphatase 117 U/L (45-117); Anion Gap 5 (5-15); BUN 14 mg/dL (7-18); BUN/Creat Ratio 18.1 RATIO (10-20); Calcium,Total 9.4 mg/dL (8.5-10.1); Chloride 106 mmol/L (98-107); Creatinine, Serum 0.77 mg/dL (0.55-1.02); EST Glomerular Filtration Rate 75 mL/min (>60); Est Glom Filt Rate - Afr Amer 91 mL/min (>60); Globulin 3.9 g/dL (2.2-4.2); Glucose 108 mg/dL (74-106); Potassium 3.6 mmol/L (3.5-5.1); Protein, Total 7.8 g/dL (6.4-8.2); Sodium Level 139 mmol/L (136-145); Thyroid Stim Hormone (TSH) 1.93 uIU/mL (0.358-3.74)
== END ==
PROVIDERS: PCP Family Medicine; Referring Provider Family Medicine; Visit Provider Family Medicine
DX: I10 Essential (primary) hypertension (principal); R00.0 Tachycardia, unspecified; R53.83 Other fatigue
CPT/HCPCS: 36415; 80053; 84443; 85025

== ENCOUNTER → 2020-09-20 08:23 | Outpatient (CLI) | payer SELFPAY, OTHER ==
[2019-06-06 08:30] VITALS: BMI 19.0
--- NOTE | 2020-09-20 08:36 | CT_ITS ---
STUDY: CT ABDOMEN WITH CONTRAST REASON FOR EXAM: Female, 85 years old. ABD PAIN. Weight loss. RADIATION DOSAGE (If Supplied By Facility): CTDIvol = ( 12.92 ) mGy, DLP = ( 307.07 ) mGycm TECHNIQUE: Transaxial images were obtained post I.V. administration of Oral and amp;amp; IV Gastrografin and amp;amp; 100mL Isovue-300, and with oral contrast. Sagittal and coronal images were reconstructed. Individualized dose optimization techniques were used for this CT. COMPARISON: Comparison is made with prior examination dated 06/05/2019. FINDINGS: Minimal linear scarring along the anterior medial aspect of the right middle lobe. Coronary artery calcification. Normal liver. The gallbladder is distended. Questionable tiny gallstone along the dependent portion of the gallbladder lumen. Normal spleen. Normal pancreas. Normal bilateral adrenal glands. Normal right kidney. Normal left kidney. Normal visualized stomach. Normal small intestine. A large amount of fecal material is seen in the colon. The appendix is visualized and appears normal. There is diffuse atherosclerotic calcification of the abdominal aorta, without a demonstrated aneurysm. Normal inferior vena cava. Normal retroperitoneum. Enlarged calcified fibroid uterus. Normal abdominal wall. The mineralization of the lumbar vertebrae. Disc space narrowing and disc degeneration at the L5-S1 level. Minimal anterior listhesis of L4 on L5 most likely secondary to facet joint osteoarthritis. CT/Abdomen WITH IV Contrast IMPRESSION: Large amount of fecal material is seen in the colon. Distended gallbladder. Tiny gallstone. Enlarged calcified fibroid uterus. Electronically Signed: Gurinder Graves MD at 11:10 EDT , Service support ,
== END ==
PROVIDERS: PCP Family Medicine; Referring Provider Family Medicine; Visit Provider Family Medicine
DX: R10.9 Unspecified abdominal pain (principal); R53.83 Other fatigue; R06.83 Snoring
CPT/HCPCS: 74160; 95806; Q9967

== ENCOUNTER → 2021-04-07 13:57 | Outpatient (CLI) | payer OTHER, SELFPAY ==
[2021-04-07 15:12] LABS: Erythrocyte Sedimentation Rate 23 mm/hr (0-30)
[2021-04-07 16:05] LABS: CRP < 2.90 mg/L (0.0-3.0); LDH 247 U/L (84-246)
[2021-04-11 15:08] LABS: Complement C3 121 mg/dL (82-167)
[2021-04-11 16:00] LABS: C1 Esterase Inhibitor, Quant 40 mg/dL (21-39)
== END ==
PROVIDERS: PCP Family Medicine; Referring Provider Internal Medicine Gastroenterology; Visit Provider Internal Medicine Gastroenterology
DX: R11.2 Nausea with vomiting, unspecified (principal)
CPT/HCPCS: 36415; 83615; 85652; 86140; 86160; 86161

== ENCOUNTER → 2021-04-14 | Outpatient (CLI) | payer OTHER, SELFPAY ==
[2021-04-17 16:09] LABS: Coproporphyrin I, Urine 5 ug/L (Undefined); Coproporphyrin I,24 Hour 8 ug/24 hr (0-24); Coproporphyrin III, Urine 28 ug/L (Undefined); Coproporphyrin III,24 Hour 44 ug/24 hr (0-74); Heptacarboxylporph.,24 Hour <2 ug/24 hr (0-4); Heptacarboxylporph.,Urine <1 ug/L (Undefined); Hexacarboxylporph.,24 Hour <2 ug/24 hr (0-1); Hexacarboxylporph.,Urine <1 ug/L (Undefined); PROELU- Alpha-1-Globulin,Ur 4.5 % (.); PROELU- Alpha-2-Globulin,Ur 15.7 % (.); PROELU- Beta Globulin, Ur 23.4 % (.); PROELU- Gamma Globulin, Ur 23.4 % (.); Pentacarboxylporph,24 Hour <2 ug/24 hr (0-4); Pentacarboxylporphyrin,Urine <1 ug/L (Undefined); Uroporphyrin, 24 Hour 8 ug/24 hr (0-24); Uroporphyrin,Urine 5 ug/L (Undefined)
[2021-04-17 20:53] LABS: Total Protein, Ur < 4.0 mg/dL (Not Estab.)
== END | disposition home or self-care (01) ==
LOC: LABSPEC 10:15
PROVIDERS: PCP Family Medicine; Referring Provider Internal Medicine Gastroenterology; Visit Provider Internal Medicine Gastroenterology
DX: R11.2 Nausea with vomiting, unspecified (principal); C90.00 Multiple myeloma not having achieved remission
CPT/HCPCS: 81050; 84120; 84166

== ENCOUNTER → 2021-04-23 10:10 | Outpatient (CLI) | payer SELFPAY, OTHER ==
[2021-03-06 08:36] LABS: CREATININE FINGERSTICK 0.7 mg/dL (0.55-1.02); EGFR FINGERSTICK > 60.0000 mL/min (>60)
[2021-03-06 11:34] LABS: Vitamin B12 1278 pg/mL (211-911)
[2021-03-06 11:48] LABS: Anion Gap 5 (5-15); BUN 10 mg/dL (7-18); BUN/Creat Ratio 14.2 RATIO (10-20); Calcium,Total 9.2 mg/dL (8.5-10.1); Chloride 107 mmol/L (98-107); Cholesterol 333 mg/dL (200); EST Glomerular Filtration Rate 84 mL/min (>60); Est Glom Filt Rate - Afr Amer 102 mL/min (>60); Glucose 95 mg/dL (74-106); High Density Lipoprotein 72 mg/dL; Potassium 4.4 mmol/L (3.5-5.1); Sodium Level 141 mmol/L (136-145); Triglycerides 165 mg/dL; Very Low Density Lipoprotein 33 mg/dL (5-40)
[2021-03-12 20:09] LABS: Free Kappa Light Chains 24.3 mg/L (3.3-19.4); Free Lambda Light Chains 16.4 mg/L (5.7-26.3)
[2021-03-12 20:34] LABS: Vitamin B1, Thiamine 114.8 nmol/L (66.5-200.0)
--- NOTE | 2021-04-23 10:12 | CT_ITS ---
STUDY: CTA HEAD AND NECK WITH CONTRAST REASON FOR EXAM: Female, 85 years old. Left Carotid Bruit -- INCLUDE IMPRESSION ON NONCONTRAST BRAIN IMAGES RADIATION DOSAGE (If Supplied By Facility): CTDIvol = ( 26.61 ) mGy, DLP = ( 1342.00 ) mGycm TECHNIQUE: CT angiography was performed with a multi-detector CT scanner. Data acquisition was obtained from the skull base through the vertex following intravenous administration of IV 100mL Isovue-370. MIP images were reconstructed from the axial data set. Post-processing of the angiographic images was performed, with multiplanar reformation and 3D reconstruction. Individualized dose optimization techniques were used for this CT. COMPARISON: No relevant priors. FINDINGS: Normal bilateral petrous carotid arteries. There is calcified plaque formation of the right cavernous carotid artery, without a cross-sectional luminal stenosis. There is calcified plaque formation of the left cavernous carotid artery, without a cross-sectional luminal stenosis. Normal right A1 segments of the anterior cerebral artery. Normal left A1 segments of the anterior cerebral artery. Normal intact anterior communicating artery (ACOM). Normal bilateral A2 segments of the anterior cerebral arteries. Normal right M1 and M2 segments of the middle cerebral arteries, with a normal M1 bifurcation. Normal left M1 and M2 segments of the middle cerebral arteries, with a normal M1 bifurcation. Normal right posterior communicating artery (PCOM). Normal left posterior communicating artery (PCOM). Normal bilateral vertebral arteries. Normal basilar artery with a normal basilar bifurcation. The visualized bilateral superior cerebellar (SCA) arteries are normal. Normal bilateral P1, P2 and visualized P3 segments of the posterior cerebral arteries. There is no demonstrated aneurysm of the [place]. Moderate degree of cerebral atrophy. Prominent CSF spaces along the anterior aspect of both temporal lobes suggestive of possible small bilateral arachnoid cysts. AORTIC ARCH: There is atherosclerotic calcific plaque formation of the aortic arch and great vessels arising from the aortic arch, without a hemodynamically significant stenosis. There is a normal origin of the brachiocephalic, left common carotid, and left subclavian arteries. RIGHT CAROTID ARTERIES: Normal right common carotid artery (CCA). Normal right common carotid bulb. There is moderate atherosclerotic plaque formation of the origin of the right internal carotid artery with an estimated stenosis of 50-69% stenosis. Normal visualized cervical portion of the right internal carotid artery. Normal origin of the right external carotid artery (ECA). LEFT CAROTID ARTERIES: Normal left common carotid artery (CCA). Normal left common carotid bulb. There is mild atherosclerotic plaque formation of the origin of the left internal carotid artery with less than 50% cross sectional diameter stenosis. Normal visualized cervical portion of the left internal carotid artery. Normal origin of the left external carotid artery (ECA). VERTEBRAL ARTERIES: Normal bilateral vertebral arteries. CT/CTA Head AND Neck W/ Contrast IMPRESSION: Cerebral atrophy. Finding suggests a small bilateral arachnoid cyst anterior to the temporal lobes. Calcific plaques at the origin of the right internal carotid artery causing 50-69% stenosis. Calcific plaques at the origin of the left internal carotid artery causing less than 50% stenosis. Electronically Signed: Gurinder Graves MD at 12:43 EDT , Service support ,
[2021-04-23 10:25] LABS: CREATININE FINGERSTICK 0.7 mg/dL (0.55-1.02); EGFR FINGERSTICK > 60.0000 mL/min (>60)
== END ==
PROVIDERS: PCP Family Medicine; Referring Provider Psychiatry & Neurology Neurology; Visit Provider Psychiatry & Neurology Neurology
DX: R09.89 Other specified symptoms and signs involving the circulatory and respiratory systems (principal); G62.9 Polyneuropathy, unspecified; F03.90 Unspecified dementia, unspecified severity, without behavioral disturbance, psychotic disturbance, mood disturbance, and anxiety; I67.9 Cerebrovascular disease, unspecified
CPT/HCPCS: 36415; 70496; 70498; 80048; 80061; 82607; 82746; 83883; 84425; Q9967

== ENCOUNTER 2021-09-12 12:01 | Outpatient (CLI) | payer OTHER, SELFPAY ==
[2021-09-12 13:54] LABS: Cholesterol 268 mg/dL (200); High Density Lipoprotein 64 mg/dL; Triglycerides 170 mg/dL; Very Low Density Lipoprotein 34 mg/dL (5-40)
== END 2021-09-12 23:59 | disposition home or self-care (01) ==
PROVIDERS: PCP Family Medicine; Referring Provider Family Medicine; Visit Provider Family Medicine
DX: E78.5 Hyperlipidemia, unspecified (principal)
CPT/HCPCS: 36415; 80061

== ENCOUNTER 2021-09-23 09:21 | Outpatient (CLI) | payer OTHER, SELFPAY ==
--- NOTE | 2021-09-23 09:33 | RAD_ITS ---
PROCEDURE: ESOPHAGRAM - UPPER GASTROINTESTINAL STUDY DATE OF EXAMINATION: 09/23/2021. INDICATION: Female, 86 years old. Esophageal spasm. PHYSICIAN: Gurinder Graves M.D. FLUOROSCOPY TIME (if supplied): (0:34) minutes/seconds TECHNIQUE: The esophagus, stomach, duodenum and proximal small bowel were evaluated initially with then with barium. The contrast material passes freely through the structures with no intraluminal filling defect identified. There is no mucosal irregularity. There is no leakage of contrast outside the gastrointestinal system. The stomach is unremarkable. No evidence of gastroesophageal reflux. No mass lesion is seen. RAD/Upper GI Dual Contrast IMPRESSION: 1. The esophagus, stomach, duodenum and proximal small bowel have a normal appearance. 2. No radiopaque filling defect is seen in the area evaluated. Electronically Signed: Gurinder Graves MD at 15:13 EDT ,
== END 2021-09-23 23:59 | disposition home or self-care (01) ==
LOC: RAD 09:22
PROVIDERS: PCP Family Medicine; Referring Provider Nurse Practitioner Adult Health; Visit Provider Nurse Practitioner Adult Health
DX: K57.10 Diverticulosis of small intestine without perforation or abscess without bleeding (principal); R10.9 Unspecified abdominal pain; R14.0 Abdominal distension (gaseous); R11.2 Nausea with vomiting, unspecified; K22.4 Dyskinesia of esophagus; K21.9 Gastro-esophageal reflux disease without esophagitis
CPT/HCPCS: 74246

== ENCOUNTER 2021-12-09 12:34 | Day surgery (SDC) | payer SELFPAY, OTHER ==
[2021-12-09] VITALS (7 sets, daily range): BP systolic 130–165; BP diastolic 68–82; PULSE 58–70; RESP 14–16; TEMP 36.2–37.1; O2SAT 98–100; BMI 22.4
--- NOTE | 2021-12-09 13:22 | PCM.HP.BLA ---
History and Physical Date of Admission: 12/09/21 AALIYAH SANCHEZ, is a 86 F who presents to the office today for recurrence since August 19 of episodes of epigastric spasms, chest tightness, belching, bloating, then headache, lips tingling, difficulty breathing, then tired rest of day. She remains on amitriptyline daily, now 10 mg, plus daughter gives her 5 mg prn for the spasm attacks prn. Didn't get relief with hyoscyamine. Family has been treating her with metronidazole with maybe some lessening of symptoms. Daughter in law accompanies them today, she would like the duodenal diverticulum reevaluated. The diverticulum was seen on UGI and endoscopy in 07/[address] Alvarado. Aaliyah had one episode when she went outside, felt weak, passed out, had fecal incontinence. Managing bowels with miralax, wondering if it contributes to bloating, and mineral oil prn. Interested in trying benefiber instead. ? FH Crohns, DIL wants to make sure that is noted ROS Const Constitutional: Positive for fatigue and headache(s) ENT ENT: Positive for hearing loss, headache(s) and difficulty swallowing Resp Respiratory: Positive for shortness of breath Cardio Cardiology: Positive for leg pain with exertion Gastro GI: Positive for abdominal pain, constipation, diarrhea, heartburn, difficulty swallowing and excessive flatus; No belching, bloating, change in bowel habits, change in stool character, coffee ground emesis, cramping, feeling full early, incontinent of stools, Vomiting blood/hematemesis, Blood in stool, loose stools, Black,tarry stools, nausea/dyspepsia, pain with swallowing, vomiting or other Genitourinary-Female: Positive for urinary urgency Musc Musculoskeletal: Positive for joint pain, joint swelling, numbness, tingling, Arthritis and leg pain with exertion Skin Skin: No yellowing of the eye or itchy eyes Neuro Neurology: Positive for headache(s), numbness and tingling Psych Psychiatric: Positive for anxiety and Positive for depression Endo Endocrine: Positive for fatigue Aller/Imm Allergy/Immunologic: No itchy eyes David/Lymp Hematologic/Lymphatic: Positive for easy bruising; No easy bleeding Exam Const General: cooperative, comfortable, well developed and well groomed Quality Reporting Tobacco Screening ([facility]) Smoking Status: Never smoker Assessment and Plan Assessment and Plan (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 ? ? Orders:?Orders: ? Upper GI Dual Contrast Today K57.10, R10.9, R14.0, R11.2, K22.4, K21.9 ?Patient Instructions: 86 yr old female went 2 months w/o episodes of upper abd spasms with pain, chest pressure, belching, fatigue; then they returned August 19. Continue amitriptyline, try liquid dicyclomine. Reevaluate duodenal diverticulum with UGI dual contrast and then she is scheduled for EGD/colonoscopy, f/u with Dr Adame 2 wks after that. Plan Details Other Medications: ?New: ? dicyclomine 10 mg (5 mL) PO BID PRN 473 mL 1RF abd spasms ?Discontinued: ? hyoscyamine sulfate ?? Take one tab by mouth every six hours as needed. Also, take one tab by mouth before bed. ?? Discontinued Reason:? Pt no longer taking 0.125 mg? PO Q6H PRN 60 tabs 0RF dyspepsia ? ? ? tramadol ?? Discontinued Reason:? Pt no longer taking 50 mg? PO DAILY 14 tabs 0RF ? ? I have re-examined the patient. There are no clinical changes since date of exam.
[2021-12-09] MEDS: Lactated Ringers 1,000 ML 15 ML IV (13:33)
--- NOTE | 2021-12-09 13:45 | EGD_PTH ---
PATIENT: JL SANCHEZ LOC: [facility] U#:[id number] AGE/SX: 86/F ROOM: RE12/09/[address]: Dr. Amado Adame DO : 1935 BED: DIS: 12/09/2021 SPEC #: [id number] RECD: 12/10/21 09:16 STATUS: GABBY KAYLI #: [id number] ALLIE: 12/09/21 13:[address]: Amado Adame DEPT: SURGICAL PATHOLOGY RECD BY: Clarissa Lisa ENTERED: 12/10/21 11:22 SP TYPE: EGD BIOPSY OT DR: Dr. Robinson Young DO Tissues: A - Esophagus, NOS B - Cecum, NOS Procedures: Special Stain Group II Surgery Specimen Level IV Alcian Blue/PAS (control) HEADER OPERATION: Colonoscopy, EGD (MAC), biopsy, reduction of volvulus PRE-OP DIAGNOSIS: Duodenal diverticulum, abdominal pain, bloating, nausea, vomiting, esophageal spasm, GERD TISSUE SUBMITTED: A ? Distal esophagus biopsy, B ? Cecal cap biopsy MICROSCOPIC DIAGNOSIS A. Distal esophagus, biopsy: Fragments of gastric mucosa with mild chronic inflammation. No evidence of goblet cell metaplasia. See comment. B. Cecal cap, biopsy: Tubular adenoma. Melanosis coli. AM:samson 12/11/2021 COMMENT A. Alcian blue/PAS stain with matched control supports the above diagnosis. MICROSCOPIC DESCRIPTION Slides are reviewed. GROSS DESCRIPTION A - Received in fixative is one container labeled with the patient's name and designated distal esophagus. The specimen consists of two irregular fragments of light hernandez soft tissue that in aggregate measure 0.6 x 0.3 x 0.1 cm. The specimen is totally submitted in one cassette. B - Received in fixative is one container labeled with the patient's name and designated cecal cap biopsy. The specimen consists of one irregular fragment of light hernandez soft tissue that measures 0.3 x 0.3 x 0.1 cm. The specimen is totally submitted in one cassette. / AM:samson 12/10/2021 TC:5 CPT: 98817 x2, [id number]
--- NOTE | 2021-12-09 15:29 | OP.CCLET_ITS ---
03/24/2022 Robinson Young [address] [facility] [place] [address] Re : Upper GI endoscopy procedure for Aaliyah Benavides Dear Dr. Young This procedure was performed on Thursday, December 09, 2021. My impressions and recommendations are as follows: Impressions : - LA Grade A reflux esophagitis. Biopsied. - Acquired deformity in the gastric body. - Non-bleeding duodenal diverticulum. Recommendations : - Discharge patient to home. - Resume previous diet. - Continue present medications. My findings are described in the full procedure note, which is enclosed. If I can be of further assistance, please feel free to contact me at . Sincerely, Amado Adame, 12/09/2021 3:28:24 PM This report has been signed electronically.
--- NOTE | 2021-12-09 15:29 | OP.EGD_ITS ---
Patient Name: Aaliyah Benavides Procedure Date: 12/09/2021 1:25 PM Date of : 1935 Age: 86 Procedure: Upper GI endoscopy Indications: Epigastric abdominal pain Providers: Amado Adame DO Medicines: Monitored Anesthesia Care Patient Profile: This is an 86 year old female. Refer to note in patient chart for documentation of history and physical. Patient has symptoms. She is status post EGD for biopsy three years ago. Complications: No immediate complications. Procedure: Pre-Anesthesia Assessment: - Prior to the procedure, a History and Physical was performed, and patient medications and allergies were reviewed. The risks and benefits of the procedure and the sedation options and risks were discussed with the patient. All questions were answered and informed consent was obtained. Patient identification and proposed procedure were verified by the physician. Mental Status Examination: alert and oriented. Airway Examination: normal oropharyngeal airway and neck mobility. Respiratory Examination: clear to auscultation. CV Examination: normal. Prophylactic Antibiotics: The patient does not require prophylactic antibiotics. Prior Anticoagulants: The patient has taken no previous anticoagulant or antiplatelet agents. ASA Grade Assessment: II - A patient with mild systemic disease. After reviewing the risks and benefits, the patient was deemed in satisfactory condition to undergo the procedure. The anesthesia plan was to use moderate sedation / analgesia (conscious sedation). Immediately prior to administration of medications, the patient was re-assessed for adequacy to receive sedatives. The heart rate, respiratory rate, oxygen saturations, blood pressure, adequacy of pulmonary ventilation, and response to care were monitored throughout the procedure. The physical status of the patient was re-assessed after the procedure. After obtaining informed consent, the endoscope was passed under direct vision. Throughout the procedure, the patient's blood pressure, pulse, and oxygen saturations were monitored continuously. The pediatric colonoscope was introduced through the mouth, and advanced to the second part of duodenum. The upper GI endoscopy was accomplished without difficulty. The patient tolerated the procedure well. Moderate Sedation: Moderate (conscious) sedation was personally administered by an anesthesia professional. The following parameters were monitored: oxygen saturation, heart rate, blood pressure, respiratory rate, EKG, adequacy of pulmonary ventilation, and response to care. Scope In: 2:44:06 PM Scope Out: 2:50:14 PM Total Procedure Duration Time 0 hours 6 minutes 8 seconds Findings: LA Grade A (one or more mucosal breaks less than 5 mm, not extending between tops of 2 mucosal folds) esophagitis with no bleeding was found 34 to 37 cm from the incisors. Biopsies were taken with a cold forceps for histology. Verification of patient identification for the specimen was done. Estimated blood loss was minimal. A deformity was found in the gastric body. There is the presence of organoaxial volvulus formation. This was able to be reduced. A 15 mm non-bleeding diverticulum was found in the second portion of the duodenum. Impression: - LA Grade A reflux esophagitis. Biopsied. - Acquired deformity in the gastric body. - Non-bleeding duodenal diverticulum. Recommendation: - Discharge patient to home. - Resume previous diet. - Continue present medications. Procedure Code(s): --- Professional --- 62176, Esophagogastroduodenoscopy, flexible, transoral; with biopsy, single or multiple CPT copyright 2017 [employer]. All rights reserved. The codes documented in this report are preliminary and upon ingot buggy operator review may be revised to meet current compliance requirements. Amado Adame DO 12/09/2021 3:28:24 PM This report has been signed electronically. Number of Addenda: 1 Note Initiated On: 12/09/2021 1:25 PM Addendum Number: 1 Addendum Date: 03/24/2022 6:09:06 AM MAC was used as sedation for this procedure. Amado Adame DO 03/24/2022 6:09:10 AM This report has been signed electronically.
--- NOTE | 2021-12-09 15:39 | OP.COLON_ITS ---
Patient Name: Aaliyah Benavides Procedure Date: 12/09/2021 2:50 PM Date of : 1935 Age: 86 Procedure: Colonoscopy Indications: Generalized abdominal pain Providers: Amado Adame DO Medicines: Monitored Anesthesia Care Patient Profile: This is an 86 year old female. Refer to note in patient chart for documentation of history and physical. Patient has symptoms. She is status post EGD for biopsy three years ago. Last Colonoscopy: date unknown. Unable to locate last colonoscopy report. Complications: No immediate complications. Procedure: Pre-Anesthesia Assessment: - Prior to the procedure, a History and Physical was performed, and patient medications and allergies were reviewed. The risks and benefits of the procedure and the sedation options and risks were discussed with the patient. All questions were answered and informed consent was obtained. Patient identification and proposed procedure were verified by the physician. Mental Status Examination: alert and oriented. Airway Examination: normal oropharyngeal airway and neck mobility. Respiratory Examination: clear to auscultation. CV Examination: normal. Prophylactic Antibiotics: The patient does not require prophylactic antibiotics. Prior Anticoagulants: The patient has taken no previous anticoagulant or antiplatelet agents. ASA Grade Assessment: II - A patient with mild systemic disease. After reviewing the risks and benefits, the patient was deemed in satisfactory condition to undergo the procedure. The anesthesia plan was to use moderate sedation / analgesia (conscious sedation). Immediately prior to administration of medications, the patient was re-assessed for adequacy to receive sedatives. The heart rate, respiratory rate, oxygen saturations, blood pressure, adequacy of pulmonary ventilation, and response to care were monitored throughout the procedure. The physical status of the patient was re-assessed after the procedure. After I obtained informed consent, the scope was passed under direct vision. Throughout the procedure, the patient's blood pressure, pulse, and oxygen saturations were monitored continuously. The colonoscope was introduced through the anus and advanced to the cecum, identified by appendiceal orifice and ileocecal valve. The colonoscopy was performed without difficulty. The patient tolerated the procedure well. The quality of the bowel preparation was fair. Scope In: 2:53:46 PM Scope Out: 3:19:09 PM Total Procedure Duration Time 0 hours 25 minutes 23 seconds Findings: Hemorrhoids were found on perianal exam. A diffuse area of severe melanosis was found in the rectum, in the recto-sigmoid colon, in the sigmoid colon, in the descending colon, at the splenic flexure, in the transverse colon, at the hepatic flexure, in the ascending colon and in the cecum. A 5 mm polyp was found in the cecum. The polyp was sessile. The polyp was removed with a cold snare. Resection and retrieval were complete. Verification of patient identification for the specimen was done. Estimated blood loss was minimal. Impression: - Preparation of the colon was fair. - Hemorrhoids found on perianal exam. - Melanosis in the colon. - One 5 mm polyp in the cecum, removed with a cold snare. Resected and retrieved. Recommendation: - Return to GI clinic. - No recommendation at this time regarding repeat colonoscopy due to age. - Continue present medications except all colonic stimulants as it is the reason why the colon has developed melanosis coli. Procedure Code(s): --- Professional --- 20919, Colonoscopy, flexible; with removal of tumor(s), polyp(s), or other lesion(s) by snare technique CPT copyright 2017 [employer]. All rights reserved. The codes documented in this report are preliminary and upon nut sorter review may be revised to meet current compliance requirements. Amado Adame DO 12/09/2021 3:39:06 PM This report has been signed electronically. Number of Addenda: 1 Note Initiated On: 12/09/2021 2:50 PM Addendum Number: 1 Addendum Date: 03/24/2022 6:09:39 AM MAC was used as sedation for this procedure. Amado Adame DO 03/24/2022 6:09:45 AM This report has been signed electronically.
--- NOTE | 2021-12-09 15:40 | OP.CCLET_ITS ---
03/24/2022 Robinson Young [address] [place] [address] Re : Colonoscopy procedure for Aaliyah Benavides Dear Dr. Young This procedure was performed on Thursday, December 09, 2021. My impressions and recommendations are as follows: Impressions : - Preparation of the colon was fair. - Hemorrhoids found on perianal exam. - Melanosis in the colon. - One 5 mm polyp in the cecum, removed with a cold snare. Resected and retrieved. Recommendations : - Return to GI clinic. - No recommendation at this time regarding repeat colonoscopy due to age. - Continue present medications except all colonic stimulants as it is the reason why the colon has developed melanosis coli. My findings are described in the full procedure note, which is enclosed. If I can be of further assistance, please feel free to contact me at . Sincerely, Amado Friend, 12/09/2021 3:39:06 PM This report has been signed electronically.
== END 2021-12-09 16:56 | disposition home or self-care (01) ==
LOC: EN 12:37 → AC 12:38
PROVIDERS: PCP Family Medicine; Referring Provider Family Medicine; Visit Provider Internal Medicine Gastroenterology
PROC: 0DJD8ZZ Inspection of Lower Intestinal Tract, Via Natural or Artificial Opening Endoscopic (ICD-10-PCS; CPT 45378; principal; 2021-12-09 13:40)
DX: K20.90 Esophagitis, unspecified without bleeding (principal); K63.89 Other specified diseases of intestine; K57.10 Diverticulosis of small intestine without perforation or abscess without bleeding; D12.0 Benign neoplasm of cecum; K64.8 Other hemorrhoids; F41.9 Anxiety disorder, unspecified; Z79.899 Other long term (current) drug therapy
CPT/HCPCS: 45385; 43239; 88305; 88313; J7120

== ENCOUNTER → 2022-07-02 | Outpatient (CLI) | payer OTHER, SELFPAY ==
[2022-07-02 15:18] LABS: Absolute Lymphocyte Count 1.45 X10^3/uL (0.83-4.51); Absolute Neutrophil Count 2.3 X10^3/uL (2.0-7.7); Basophil# 0.05 X10^3/uL; Basophil% 1.1 % (0-1); Eosinophil# 0.07 X10^3/uL; Eosinophils% 1.6 % (0-5); Hematocrit 32.5 % (37-47); Hemoglobin 10.9 g/dL (12.0-15.0); Lymphocyte # 1.45 X10^3/ul (0.83-4.51); Mean Corp Hgb Conc 33.5 g/dL (32-36); Mean Corpuscular Hgb 31.7 pg (27.0-32.0); Mean Corpuscular Volume 94.5 fL (81-99); Mean Platelet Vol. 10.6 fl (6.2-12.0); Monocyte# 0.51 X10^3/uL; Monocyte% 11.6 % (0-10); NRBC Flagged by Analyzer 0 % (0-5); Neutrophil # 2.29 X10^3/uL (2.7-7.7); Platelet Count 232 K/mm3 (150-450); RBC Distribution Width CV 13.6 % (11.6-14.6); RBC Distribution Width SD 46.9 fl (35.1-43.9); Red Blood Count 3.44 M/mm3 (4.2-5.4); White Blood Count 4.4 K/mm3 (4.4-11.0)
[2022-07-02 16:54] LABS: AST(SGOT) 21 U/L (15-37); Alanine Aminotransfer ALT/SGPT 21 U/L (13-56); Albumin, Serum 3.8 g/dL (3.2-5.0); Alkaline Phosphatase 83 U/L (45-117); Anion Gap 2 (5-15); BUN 13 mg/dL (7-18); BUN/Creat Ratio 15.9 RATIO (10-20); Bilirubin, Direct 0.08 mg/dL (0.00-0.30); Calcium,Total 9.1 mg/dL (8.5-10.1); Chloride 108 mmol/L (98-107); Cholesterol 295 mg/dL (200); Creatinine, Serum 0.82 mg/dL (0.55-1.02); EST Glomerular Filtration Rate 71 mL/min (>60); Est Glom Filt Rate - Afr Amer 86 mL/min (>60); Ferritin 131 ng/mL (8-252); Globulin 3.7 g/dL (2.2-4.2); Glucose 86 mg/dL (74-106); High Density Lipoprotein 84 mg/dL; Potassium 4.3 mmol/L (3.5-5.1); Prealbumin 27.2 mg/dL (20.0-40.0); Protein, Total 7.5 g/dL (6.4-8.2); Sodium Level 140 mmol/L (136-145); Triglycerides 97 mg/dL; Very Low Density Lipoprotein 19 mg/dL (5-40)
== END | disposition home or self-care (01) ==
LOC: BFHLAB 11:51
PROVIDERS: Psychiatry & Neurology Neurology; PCP Family Medicine; Visit Provider Family Medicine
DX: I10 Essential (primary) hypertension (principal); R63.0 Anorexia; D64.9 Anemia, unspecified; E78.5 Hyperlipidemia, unspecified
CPT/HCPCS: 36415; 80048; 80061; 80076; 82728; 84134; 85025

== ENCOUNTER → 2022-08-04 | Outpatient (CLI) | payer SELFPAY, OTHER ==
--- NOTE | 2022-08-04 09:07 | CDU_ITS ---
Reason For Study: carotid stenosis Rt. Velocities/BP Lt. Velocities/BP Prox CCA 114.6/22.5 cm/sec. Prox CCA 137.5/18.8 cm/sec. Mid CCA 83.9/13.9 cm/sec. Mid CCA 108.4/21.2 cm/sec. Dist CCA 90.0/20.0 cm/sec. Dist CCA 110.9/17.6 cm/sec. Prox ICA 121.1/27.9 cm/sec. Prox ICA 83.9/17.6 cm/sec. Mid ICA 145.9/39.7 cm/sec. Mid ICA 109.7/31.1 cm/sec. Dist ICA 126.6/38.9 cm/sec. Dist ICA 117.4/35.3 cm/sec. Rt. ICA/CCA = 1.7. Lt. ICA/CCA = 1.1. Prox ECA 121.1/6.3 cm/sec. Prox ECA 128.4/7.9 cm/sec. Rt. Vert. 68.5/16.8 cm/sec. Lt. Vert. 58.1/10.2 cm/sec. Right Extracranial There is homogeneous, smooth atherosclerotic plaque noted in the right common carotid artery. There is heterogeneous, irregular atherosclerotic plaque noted in the right internal carotid artery. There is intimal thickening but no significant atherosclerotic plaque noted in the right external carotid artery. Antegrade flow is noted in the right vertebral artery. Left Extracranial There is homogeneous, smooth atherosclerotic plaque noted in the left common carotid artery. There is heterogeneous, irregular atherosclerotic plaque noted in the left internal carotid artery. There is intimal thickening but no significant atherosclerotic plaque noted in the left external carotid artery. Antegrade flow is noted in the left vertebral artery. Procedure Carotid Duplex [id number]. This is a Carotid Duplex examination using B-mode, color flow and specral Doppler. The exam was diagnostic. Exam performed in department. VL/Carotid Duplex Ultrasound Interpretation Summary Regular plaque at the proximal right internal carotid artery with 50 to 69% marcin nosis Less than 50% stenosis right external carotid Minimal irregular plaque at the proximal left internal carotid artery with less than 50% stenosis Less than 50% stenosis left external carotid artery Patent and antegrade vertebral arteries bilaterally Ordering Physician: Roderick Moralez Performed By: Mich De Jesus RVT
[2022-08-04 10:24] LABS: Cholesterol 260 mg/dL (200); High Density Lipoprotein 78 mg/dL; Triglycerides 80 mg/dL; Very Low Density Lipoprotein 16 mg/dL (5-40)
== END | disposition home or self-care (01) ==
PROVIDERS: PCP Family Medicine; Referring Provider Psychiatry & Neurology Neurology; Visit Provider Psychiatry & Neurology Neurology
DX: E78.5 Hyperlipidemia, unspecified (principal); I65.29 Occlusion and stenosis of unspecified carotid artery; G45.1 Carotid artery syndrome (hemispheric)
CPT/HCPCS: 36415; 80061; 93880

== ENCOUNTER → 2022-08-24 | Outpatient (CLI) | payer OTHER, SELFPAY ==
--- NOTE | 2022-08-24 09:40 | RAD_ITS ---
PROCEDURE: Air contrast Upper GI with Small Bowel Follow Through DATE OF EXAMINATION: August 24, 2022.. INDICATION: Female, 87 years old. Constipation, abdominal pain and bloating. FLUOROSCOPY TIME (if supplied): (1:23) minutes/seconds TECHNIQUE: Radiographic and fluoroscopic images of the distal esophagus, stomach, and entire small intestine were obtained following the oral ingestion of barium. COMPARISON: None. FINDINGS: The traffic court referee film of the abdomen demonstrates a normal bowel gas pattern. There are no abnormal calcifications or organomegaly demonstrated. The visualized osseous structures are normal. Small hiatal hernia without gastroesophageal reflux. The stomach and duodenum are unremarkable. No evidence of ulceration. A single contrast small bowel follow through exam demonstrates the small bowel to have no evidence for stricture, ulceration or mass. The transit time is normal at 60 minutes. RAD/Upper GI/w Small Bowel IMPRESSION: 1. Small sliding hiatal hernia without gastroesophageal reflux. Electronically Signed: Gurinder Graves MD at 15:10 EST ,
== END | disposition home or self-care (01) ==
LOC: RAD 09:39
PROVIDERS: PCP Family Medicine; Referring Provider Internal Medicine Gastroenterology; Visit Provider Internal Medicine Gastroenterology
DX: R10.9 Unspecified abdominal pain (principal)
CPT/HCPCS: 74246; 74248

== ENCOUNTER → 2022-11-09 | Outpatient (CLI) | payer OTHER, SELFPAY ==
[2022-11-09 18:19] LABS: Absolute Lymphocyte Count 1.47 X10^3/uL (0.83-4.51); Absolute Neutrophil Count 2.2 X10^3/uL (2.0-7.7); Basophil# 0.04 X10^3/uL; Basophil% 0.9 % (0-1); Eosinophils% 4.4 % (0-5); Hematocrit 30.1 % (37-47); Hemoglobin 9.9 g/dL (12.0-15.0); Lymphocyte # 1.47 X10^3/ul (0.83-4.51); Lymphocyte % 32.5 % (19-41); Mean Corp Hgb Conc 32.9 g/dL (32-36); Mean Corpuscular Hgb 29.9 pg (27.0-32.0); Mean Corpuscular Volume 90.9 fL (81-99); Mean Platelet Vol. 10.7 fl (6.2-12.0); Monocyte# 0.57 X10^3/uL; Monocyte% 12.6 % (0-10); NRBC Flagged by Analyzer 0 % (0-5); Neutrophil # 2.23 X10^3/uL (2.7-7.7); Neutrophil % 49.4 % (47-70); Platelet Count 266 K/mm3 (150-450); RBC Distribution Width CV 14.5 % (11.6-14.6); RBC Distribution Width SD 48.5 fl (35.1-43.9); Red Blood Count 3.31 M/mm3 (4.2-5.4); White Blood Count 4.5 K/mm3 (4.4-11.0)
[2022-11-09 19:00] LABS: BNP,B-Type NATRIURETIC PEPTIDE 26.9 pg/mL (0-100)
[2022-11-09 19:10] LABS: ALB/GLOB Ratio 0.9 RATIO (0.9-2.4); AST(SGOT) 29 U/L (15-37); Alanine Aminotransfer ALT/SGPT 24 U/L (13-56); Albumin, Serum 3.7 g/dL (3.2-5.0); Alkaline Phosphatase 107 U/L (45-117); Anion Gap 10 (5-15); BUN 13 mg/dL (7-18); BUN/Creat Ratio 15.8 RATIO (10-20); Calcium,Total 9.2 mg/dL (8.5-10.1); Chloride 107 mmol/L (98-107); Creatinine, Serum 0.82 mg/dL (0.55-1.02); EST Glomerular Filtration Rate 70 mL/min (>60); Est Glom Filt Rate - Afr Amer 85 mL/min (>60); Globulin 3.9 g/dL (2.2-4.2); Glucose 84 mg/dL (74-106); Potassium 4.2 mmol/L (3.5-5.1); Protein, Total 7.6 g/dL (6.4-8.2); Sodium Level 142 mmol/L (136-145); T4 Free Direct 0.82 ng/dL (0.76-1.46); Thyroid Stim Hormone (TSH) 1.95 uIU/mL (0.358-3.74)
== END | disposition home or self-care (01) ==
LOC: BFHLAB 16:38
PROVIDERS: PCP Family Medicine; Referring Provider Family Medicine; Visit Provider Family Medicine
DX: I10 Essential (primary) hypertension (principal); R53.83 Other fatigue; R06.02 Shortness of breath
CPT/HCPCS: 36415; 80053; 83880; 84439; 84443; 85025

== ENCOUNTER → 2023-03-25 | Outpatient (CLI) | payer SELFPAY, OTHER ==
--- NOTE | 2023-03-25 14:44 | CT_ITS ---
INDICATION: ABD DISCOMFORT COMPARISON: 09/20/[address] RADIATION DOSAGE (If Supplied By Facility): CTDIvol = ( 12.21 ) mGy, DLP = ( 588.71 ) mGycm A radiation dose optimization technique was used for this scan. FINDINGS: Noncontrast serial CT axial images through the abdomen and pelvis with coronal and sagittal reformatted series. PANCREAS: No peripancreatic fat stranding. BOWEL/MESENTERY: No dilated bowel loops. No significant free fluid. No free air. Colonic diverticulosis without focus of diverticulitis. GALLBLADDER: Dependent cholelithiasis without pericholecystic fat stranding. LIVER/STOMACH: No obvious abnormality. URINARY COLLECTING SYSTEM/ KIDNEYS: Again is noted mild right hydronephrosis without obstructing ureteral calculus. Interval worsening of right renal cortical atrophy from 2 years prior. APPENDIX: Appendix is not definitely identified, however, there are no significant right lower quadrant inflammatory fat changes or focal fluid collection to suggest acute appendicitis. LUNG BASES: Bibasilar thin linear atelectasis. 8 mm left lung base pulmonary nodule on axial image 21 of series 2. 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 Significant right hemipelvis trabecular thickening and sclerosis, suggesting Paget''s disease. CT/Abdomen/Pel W ORAL Cont Only IMPRESSION: 8 mm left lung base pulmonary nodule, new from 2020. Recommend follow-up evaluation as per Fleischner guidelines as neoplastic process is not excluded. Again is noted mild right hydronephrosis without obstructing ureteral calculus. Interval worsening of right renal cortical atrophy from 2 years prior. Appendix is not definitely identified, however, there are no significant right lower quadrant inflammatory fat changes or focal fluid collection to suggest acute appendicitis. Otherwise, no acute abdominal abnormality is identified, to include no evidence of obstructing ureteral calculus. Electronically Signed: Steh Ramirez MD at 23:23 EDT ,
[2023-03-25 17:35] LABS: CREATININE FINGERSTICK < 0.9 mg/dL (0.55-1.02); EGFR FINGERSTICK > 60.0000 mL/min (>60)
== END | disposition home or self-care (01) ==
LOC: CT 14:35
PROVIDERS: PCP Family Medicine; Referring Provider Family Medicine; Visit Provider Family Medicine
DX: R10.9 Unspecified abdominal pain (principal); R14.0 Abdominal distension (gaseous)
CPT/HCPCS: 74176

== ENCOUNTER → 2023-07-05 | Outpatient (CLI) | payer OTHER, SELFPAY ==
--- NOTE | 2023-07-05 09:19 | RAD_ITS ---
STUDY: X-RAY - ESOPHAGUS (BARIUM SWALLOW) WITH FLUOROSCOPY REASON FOR EXAM: Female, 88 years old. R/O DYSMOTILITY OR HIATAL HERNIA TECHNIQUE: 15 view(s) of the esophagus were obtained following swallowing of barium. FLUOROSCOPY TIME (if supplied): (33 seconds.) minutes/seconds. 12.66 mGy COMPARISON: Comparison is made with prior study dated August 24, 2022 and September 23, 2021. FINDINGS: There is no demonstrated esophageal foreign body. There is no demonstrated stricture or mucosal abnormality. Normal gastroesophageal junction, without a demonstrated hiatal hernia. Tertiary contractions of the distal esophagus. The patient ingested a 12 mm tablet of barium without any difficulty. Normal visualized aortic arch and descending thoracic aorta. Normal visualized pulmonary parenchyma. Normal visualized osseous structures of the thorax. RAD/Esophagus Dual Contrast IMPRESSION: There are tertiary contractions of the distal esophagus. No evidence of gastroesophageal reflux. Electronically Signed: Gurinder Graves MD at 12:44 EST ,
--- OUTSIDE RECORDS SUMMARY | 2023-07-05 09:43 | XMS RPT_ITS | CCD ---
Author Name Unknown Address [address] [place] [address] Organization [facility] Care Team Providers Care Drum Sander Offbearer Name Role Phone Matthieu Etienne Primary Care Provider Matthieu Etienne Primary Care Provider [phone] Luzmaria Adame DO Unavailable BECKA YOUNG Consulting Unavailable BRENT LORENZO DO Attending Unavailable BRENT LORENZO DO Primary Care Unavailable BRENT LORENZO DO Admitting Unavailable BECKA YOUNG Referring Unavailable PROVIDER, UNKNOWN Consulting Unavailable MATTHIEU ETIENNE Referring Unavailable MATTHIEU ETIENNE Primary Care Unavailable ESAN FLOYD Attending Unavailable Becka Young DO Primary Care Provider BECKA YOUNG Primary Care Unavailable KARIME FELIZ Attending Unavailable KARIME FELIZ Referring Unavailable BECKA YOUNG Primary Care Unavailable SELF, SELF Referring Unavailable MARJORIE LAKHANI Attending Unavailab BECKA Ferrell Primary Care Unavailable MARJORIE LAKHANI Attending Unavailab LUZMARIA Matson Referring Unavailable BECKA YOUNG Primary Care Unavailable Allergies Allergy Classification Reported Allergen(s) Allergy Type Date of Onset Reaction(s) Facility (1 source) Aspirin Drug Allergy [facility] Repository (1 source) Aspirin / Caffeine / Orphenadrine Drug Allergy [facility] Repository (1 source) busPIRone Drug Allergy [facility] Repository (1 source) diazePAM Drug Allergy [facility] Repository (1 source) Erythromycin Drug Allergy [facility] Repository (1 source) Penicillins Drug allergy (disorder) [facility] Repository (1 source) Promethazine Drug Allergy [facility] Repository (1 source) Sulfonamides (Antibiotic) Drug allergy (disorder) [facility] Repository (1 source) NSAID Drug allergy (disorder) [facility] Repository (1 source) UNCHECKED ALLERGY CODE - OTHER - See chart; Translations: [UNCHECKED ALLERGY CODE - OTHER - See chart] Propensity to adverse reactions (disorder) [facility] Repository Medications Current Medications Medication Drug Class(es) Dates Sig (Normalized) Sig (Original) amitriptyline hydrochloride 10 mg oral tablet (6 sources) Tricyclic Antidepressant Start: 08-17-2022 take 1 tablet by mouth at bedtime for sleep Amitriptyline 10 MG tablet TAKE 1 TABLET BY MOUTH AT BEDTIME FOR SLEEP 0 08/17/2022 Active Completed/Discontinued Medications Medication Drug Class(es) Dates Sig (Normalized) Sig (Original) ALPRAZolam 0.25 mg oral tablet (3 sources) Benzodiazepine Start: 06-12-2020 End: 09-16-2021 take 1-2 tablets by mouth at bedtime as needed for anxiety ALPRAZolam (XANAX) 0.25 mg tablet TAKE 1 TO 2 TABLETS BY MOUTH AT BEDTIME NEEDED FOR SEVERE ANXIETY 0 06/12/2020 09/16/2021 Discontinued Problems Active Problems Problem Classification Problem Date Documented Da te Episodic/Chronic Abdominal hernia (2 sources) Hiatal hernia; Translations: [Hiatal hernia] Episodic Esophageal disorders (3 sources) Gastroesophageal reflux disease; Translations: [Gastro-esophageal reflux disease without esophagitis] Onset: 4 Chronic Other disorders of stomach and duodenum (2 sources) Other diseases of stomach and duodenum; Translations: [Other diseases of stomach and duodenum] Onset: 3 Episodic Other gastrointestinal disorders (2 sources) Abdominal distension, gaseous; Translations: [Abdominal distension (gaseous)] Onset: 4 Episodic Other gastrointestinal disorders (1 source) Constipation; Translations: [Constipation, unspecified] Episodic Other gastrointestinal disorders (1 source) Abdominal bloating; Translations: [Abdominal distension (gaseous)] Episodic Other gastrointestinal disorders (1 source) Abdominal distension (gaseous); Translations: [Abdominal distension (gaseous)] Onset: 4 Episodic Past or Other Problems Problem Classification Problem Date Documented Da te Episodic/Chronic Abdominal pain (3 sources) Abdominal pain; Translations: [Unspecified abdominal pain] Onset: 10-27-2022 Episodic Other gastrointestinal disorders (2 sources) Slow transit constipation; Translations: [Slow transit constipation] Onset: 10-27-2022 Episodic Other gastrointestinal disorders (1 source) Slow transit constipation; Translations: [Slow transit constipation] Onset: 10-27-2022 Episodic Results Test Name Value Interpretation Reference Range Facil ity Vital Signs Date Time Vital Sign Value Performing Clinician Philippe navarrete 08-21-2022 10:13-0500 Body height 160 cm Marjorie Lakhani MD Work Phone: [facility] 08-21-2022 10:13-0500 Body mass index (BMI) [Ratio] 21.26 kg/m2 Marjorie Lakhani MD Work Phone: [facility] 08-21-2022 10:13-0500 Body weight 54.43 kg Marjorie Lakhani MD Work Phone: [facility] 08-21-2022 10:13-0500 Diastolic blood pressure 80 mm[Hg] Marjorie Lakhani MD Work Phone: [facility] 08-21-2022 10:13-0500 Heart rate 88 /min Marjorie Lakhani MD Work Phone: [facility] 08-21-2022 10:13-0500 SaO2% (BldA) [Mass fraction] 99 % Marjorie Lakhani MD Work Phone: [facility] 08-21-2022 10:13-0500 Systolic blood pressure 160 mm[Hg] Marjorie Lakhani MD Work Phone: [facility] 09-16-2021 11:00-0400 Body height 162.6 cm Sean Floyd MD Work Phone: [facility] 09-16-2021 11:00-0400 Body weight 58.06 kg Sean Floyd MD Work Phone: [facility] 07-11-2020 10:08-0500 Body weight 56.34 kg [facility] 07-11-2020 10:08-0500 BP Diastolic 80 mm[Hg] [facility] 07-11-2020 10:08-0500 BP Systolic 162 mm[Hg] [facility] 07-11-2020 10:08-0500 Height 162.6 cm [facility] 07-11-2020 10:08-0500 Pulse (Heart Rate) 68 /min [facility] Cli linda Encounters Encounter Date Encounter Type Care Provider Facility Start: 06-25-2023 ambulatory BECKA A IRIS Facilit y:[facility] Start: 04-06-2023 ambulatory BECKA A IRIS Facilit y:[facility] Start: 10-27-2022 ambulatory BECKA A IRIS Facilit y:[facility] Start: 08-21-2022 ambulatory BECKA A IRIS Facilit y:[facility] Start: 08-21-2022 End: 08-21-2022 Office outpatient new 45 minutes Marjorie Lakhani MD Work Phone: Gastroenterology [facility] Hepatology [facility] Plan of Treatment Date Care Activity Detail Author Start: 02-19-[address] [facility] Start: 10-06-2021 COVID-19 VACCINE (4 - Booster for Pfizer series) COVID-19 VACCINE (4 - Booster for Pfizer series) [facility] Start: 08-02-2021 COVID-19 VACCINE (4 - Booster for Pfizer series) COVID-19 VACCINE (4 - Booster for Pfizer series) [facility] Start: 06-21-2021 ADVANCE DIRECTIVE DISCUSSION ADVANCE DIRECTIVE DISCUSSION [facility] Start: 02-19-2021 Influenza vaccination INFLUENZA (#1) [facility] Start: 02-20-2020 Influenza vaccination INFLUENZA (#1) [facility] Start: 2001 ADVANCE DIRECTIVE DISCUSSION ADVANCE DIRECTIVE DISCUSSION [facility] Start: 2001 BONE DENSITY BONE DENSITY [facility] Start: 2001 Pneumococcal vaccination PNEUMOCOCCAL VACCINE SERIES (1 - PCV) [facility] Start: 2001 PNEUMOCOCCAL: 65+ (1 - PCV) PNEUMOCOCCAL: 65+ (1 - PCV) [facility] Start: 2001 PNEUMOVAX AGE 65 AND OVER WITH 5YR LOOKBACK (#1) PNEUMOVAX AGE 65 AND OVER WITH 5YR LOOKBACK (#1) [facility] Start: 1986 SHINGRIX VACCINE (1 of 2) SHINGRIX VACCINE (1 of 2) [facility] Start: 1986 Zoster vaccine hzv live for subcutaneous use ZOSTER (SHINGLES) VACCINE (1 of 2) [facility] Start: 1981 DIABETES SCREEN DIABETES SCREEN [facility] Start: 1981 Screening for malignant neoplasm of colon COLORECTAL CANCER SCREENING DISCUSSION [facility] Start: 1976 Screening for malignant neoplasm of breast MAMMOGRAM SCREENING DISCUSSION [facility] Start: 1957 Screening for malignant neoplasm of cervix CERVICAL CANCER SCREENING DISCUSSION [facility] Start: 1955 Third diphtheria, tetanus and acellular pertussis (DTaP) vaccination TDAP (ADULT) [facility] Start: 1955 Urine microalbumin profile DTAP,TDAP,TD (1 - Tdap) [facility] Start: 1936 Screening for osteoporosis DEXA SCAN DISCUSSION [facility] Start: 1936 Tetanus vaccination TETANUS [facility] End: 07-11-2021 Esophagogastroduodenoscopy transoral diagnostic EGD Endoscopy Routine Hiatal hernia 1 Occurrences starting 07/11/2020 until 07/11/2021 [facility] Immunizations Immunization Date Immunization Notes Care Provider Rip menchaca 06-24-2017 influenza virus vaccine, unspecified formulation Marjorie Lakhani MD Work Phone: [facility] Payers Date Payer Category Payer Unknown 201 [id number] 2020 Unknown PENTECOSTAL SELF P AY PENTECOSTAL SELF PAY GENERIC [id number] 2020-Present Other [id number] 1936 Unknown [id number] 1 Unknown PENTECOSTAL SELF P AY PENTECOSTAL SELF PAY GENERIC Effective for all dates Other Social History Date Type Detail Facility Tobacco smoking stat us TNIS Unknown if ever smoked [facility] Start: 1935 Sex Assigned At Not on file C [facility] Start: 08-11-2022 End: 08-21-2022 Exposure to SARS-CoV-2 (event) Not sure [facility] Start: 07-11-2020 End: 08-21-2022 Tobacco smoking status NHIS Never smoker [facility] Start: 07-11-2020 End: 08-21-2022 Tobacco use and exposure Never used [facility] Start: 08-21-2022 Alcohol intake Lifetime non-d sean (finding) [facility] Medical Equipment Procedure Code Equipment Code Equipment Origin al Text Equipment Identifier Dates Capsule Parra Ph Delivery System - [id number] Start: 07-26-2020 History of Present illness Narrative 08-21-2022 Marjorie Lakhani MD - 08/21/2022 10:00 AM Dianne Feliz MD - 08/21/2022 10:00 AM EST Note Date & Type Note Facility 08-21-2022 History of Present illness Narrative Images from the original note were not included. [facility] New Patient Consultation 08/21/2022 Referring physician: Luzmaria Friend, [address] [address] PCP: Becka Young [facility] [id number] Reason for consultation visit: Linx procedure an GI establishment Aaliyah Benavides is a 87 y.o. female with Hypertension, hyperlipidemia and cognitive impairment who presents for initial consultation. History of Present Illness Daughter presented with her. She described that Aaliyah has had several years of symptoms belching, bloating, constipation. But then the attacks started a few years ago. Attacks feel like a fist in the middle of the abdomen, she feels severely dry in her throat and nostrils, food or water won't go down, she hears gurgling in her abdomen and she has heart racing and panic attacks. Will also cough a lot during attacks. Xanax and bentyl helps her relax in these situations. Certain foods trigger it (vegetables, stir lopez). In between these attacks she still and currently Has bloating, feeling like something is stuck in throat. Belches a lot especially if her abdomen is pressed. Has abdominal discomfort all the time. Having a bowel movement helps these symptoms but does not resolve. Has a bowel movement once a day on the linzess recently and miralax BID. Also taking supplements called vital gut renew, vital lax and vital liane. When she does have a bowel movement it is a soft strip dark but no blood or melena. Of note she is on amitrytyline for sleep. Saw surgeon in May for gastropexy referral, at that time took Nexium once a day for a couple months and did not help Other ROS: denies nausea vomiting fever chills weight loss headache epistaxis blurry vision hematuria dysuria skin rash joint pains or sleeping troubles Other history: NSAID / ASA / AC - no Constipating / diarrhea provoking meds - anti cholinergic amitrytyline Allergies / food aversions -no Surgeries - ovary removed (unclear why) Family hx GI disease - dad had hiatal hernia Last ETOH/tobacco - No Imaging reviewed, just results as per OSH GI note: 05/2019 small hiatal hernia and gastroesophageal reflux disease on upper GI serires [address] chest 05/2019 gallstne, hiatal hernia CT AP 09/2020 gallbladder, large amount of fecal material Looks like OSH GI tried flagy once, bowel cleanse Labs ESR CRP C3 C4 normal urine porphyrins normal Esophogram 09/2021 normal 09/23/21 UGI series normal EGD and colonoscopy 12/09/21 EGD with LA Grade A esophagitis, acquired derformiy of gastric body, non bleeding duodenal diverticulum. Colonoscopy melanosis diverticulosis one 5mm TA polyp cecum Past Medical History: No past medical history on file. Immunization History Administered Date(s) Administered COVID-19 vaccine, mRNA, Pfizer, 0.3 ML 08/08/2020, 08/27/2020, 06/07/2021 Surgical History: Past Surgical History: Procedure Laterality Date HIP REPLACEMENT Left TMJ ARTHOTOMY Family History: Family History Problem Relation Age of Onset Stroke Mother Bleeding or Clotting Problems Father Stroke Sister Heart Disease - Other Brother Social History: Social History Socioeconomic History Marital status: Spouse name: Not on file Number of children: Not on file Years of education: Not on file Highest education level: Not on file Occupational History Not on file Tobacco Use Smoking status: Never Smokeless tobacco: Never Substance and Sexual Activity Alcohol use: Never Drug use: Never Sexual activity: Never Other Topics Concern Not on file Social History Narrative Not on file Social Determinants of Health Financial Resource Strain: Not on file Food Insecurity: Not on file Transportation Needs: Not on file Physical Activity: Not on file Stress: Not on file Social Connections: Not on file Intimate Partner Violence: Not on file Housing Stability: Not on file Allergies: No Known Allergies Current Medications: Current Outpatient Medications Medication Sig Dispense Refill Amitriptyline 10 MG tablet TAKE 1 TABLET BY MOUTH AT BEDTIME FOR SLEEP Cyanocobalamin 100 MCG tablet Take 1 tablet by mouth daily. donepezil 5 MG tablet Take 1 tablet by mouth at bedtime. fenofibrate 54 MG tablet Take 1 tablet by mouth daily. Linzess 145 MCG capsule Take 1 capsule by mouth daily. Lisinopril 10 MG tablet Take 1 tablet by mouth daily. [place]-3 Fatty Acids (RA Fish Oil) 1000 MG capsule Take by mouth. dicyclomine 10 MG/5ML syrup Take 5 mL by mouth 3 times daily (take before meals). [address] omeprazole [address] capsule Take 1 capsule by mouth 2 times daily. 180 capsule 1 rifAXIMin 550 MG tablet Take 1 tablet by mouth 3 (three) times a day for 14 days. 42 tablet 0 No current facility-administered medications for this visit. Review of Systems: Review of Systems - as above Vital Signs: BP 160/80 (BP Location: Left arm, BP Position: Sitting) Pulse 88 Ht 1.6 m (5' 3 ) Wt 54.4 kg (120 lb) SpO2 99% BMI 21.26 kg/m Smoking Status Never Physical Exam: Gen: Alert and oriented. Laying in bed comfortably Eyes: DULCE, EOMI, no scleral icterus ENT: Nares patent, throat without erythema or thrush, no oral lesions Resp: CTAB without wheezes or crackles or rhonchi. No accessory muscle use Cardio: RRR without murmurs or gallops. No S3/S4/JVD GI: Abdomen soft, nontender, and without masses. Tympanic and loud bowel sounds. No rebound tenderness, Extremities: Warm, distal pulses 2+, no LE edema Skin: No open wounds or rashes, no jaundice Neuro: CN II-XII grossly intact Laboratory Review: I have personally reviewed the labs. No results found for: WBC, WBCCOUNT, WBCFETAL, HGB, HCT, PLATELET, MCV No results found for: SODIUM, POTASSIUM, CHLORIDE, CREATSERUM No results found for: ALT, TRANSFERASEA, AST, GGT, GAMMAGT, ALKPHOS, BILITOTAL, BILIDIRECT Inflammatory Markers No results found for: SEDRATE No results found for: CRP Fecal Calprotectin No results found for: CLPRTCTINSTL Micronutrients No results found for: ZNCSERUM, [id number], FERRITIN, FOLATE, IRON, TIBC, IRONSATURAT, B12 Biologic Labs No results found for: MTUBERQUANT No results found for: THIOPMETTR No results found for: HEPATITISB, HEPBSURFAB, HEPCAB No results found for: HEPABIG Impression: Aaliyah Benavides is a 87 y.o. female with Hypertension, hyperlipidemia and cognitive impairment who presents for initial consultation. #belching #bloating #constipaiton #hiatal hernia #abdominal spasms #LA grade A esophagitis history #one 5mm Tubular adneoma Review of history and data we have shows she has had largely normal endoscopic and imaging studies, does have hiatal hernia. Thus at this point likely has SIBO, constipation and possibly supra-gastric belching. Less likely but possible is lisinopril associated angioedema responsible. Thus: Plan: - start omeprazole twice a day with history of esophagitis and symptoms - start rifaximin 550mg TID for SIBO - try peppermint oil for acute spasms. She should use peppermint oil 5 drops in 10 ml water 3-4 times per day PRN. The study this recommendation is based on (Bhavani et al. J Clin Gastro 2001) used 11% peppermint oil (Pure Peppermint Extract; [employer] red and yellow box) that is available at most grocery stores. - ask your doctor about stopping lisinopril - will follow up on ?barium esophogram OSH doctor reportedly getting next week to see if pt needs further manometry etc Follow Up: We will see the patient back in clinic in 6 months. The patient was given ample opportunity to ask any questions and their questions were answered. I spent 30 minutes with the patient with over 50% of the time counseling the patient as documented above. Staffed and seen with attending physician Dr. Gurpreet Lakhani MD Fellow Physician Division of Gastroenterology, Hepatology & Nutrition Department of Internal Medicine [facility] Pager [phone] or Epic Chat with questions I saw and evaluated Ms. Benavides today along with Dr. Lakhani. I have revised the note as needed and agree with the documentation. She has intermittent abdominal spasm symptoms. She has benefit to benzodiazepine for this but makes her sleepy. Seems like functional spasm given outside work-up. Would do PPI twice daily. Can trial rifaximin. For acute symptoms, can trial peppermint oil as an antispasmodic. She should use peppermint oil 5 drops in 10 ml water 3-4 times per day PRN. The study this recommendation is based on (Bhavani et al. J Clin Gastro 2001) used 11% peppermint oil (Pure Peppermint Extract; [employer] red and yellow box) that is available at most grocery stores. Would stop lisinopril as this could be SHAILESH I induced angioedema given pattern. If continues then would refer to PT for diaphragmatic breathing. We do not see an indication for surgery based on imaging and the last clinic note we can see. Her hernia is small or not seen on available imaging. If primary GI doctor still wants the surgical opinion or if there is information we do not have, they need to refer to General Surgery. We will try to reach out to them to get a better sense of their concern. Karime Feliz MD Set O Type Operator, Division of Gastroenterology, Hepatology & Multicraft Operator, Section of Intestinal Neoplasia and Hereditary Polyposis [facility] documented in this encounter [facility] Instructions 08-21-2022 Patient Instructions Note Date & Type Note Facility 08-21-2022 Instructions Karime Feliz MD - 08/21/2022 10:00 AM EST - start omeprazole twice a day - start rifaximin 550mg TID - try peppermint oil for acute spasms. She should use peppermint oil 5 drops in 10 ml water 3-4 times per day PRN. The study this recommendation is based on (Bhavani et al. J Clin Gastro 2001) used 11% peppermint oil (Pure Peppermint Extract; [employer] red and yellow box) that is available at most grocery stores. - ask your doctor about stopping lisinopril Continue follow-up with primary GI doctor. We will see her back in 6 months. documented in this encounter [facility] Note 12-18-2021 Telephone Encounter - Taylor Deluna Pss - 12/18/2021 4:45 PM EDT Note Date & Type Note Facility 12-18-2021 Miscellaneous Notes Called [facility]- wanted her to make an appointment on 12/19/21- spoke to one of the daughters, she said they cant do that but end of December would be best. Called zEio the other daughter ( [phone] ) [facility] to see if we can get her in to see . documented in this encounter [facility] Progress note 09-16-2021 Note Date & Type Note Facility 09-16-2021 Note HNO ID: [id number] Author: Sean Floyd MD Service: ? Author Type: Physician Type: Progress Notes Filed: 09/16/2021 4:13 PM Note Text: SURGICAL SERVICES HISTORY AND PHYSICAL EXAMINATION SERVICE DATE: 09/16/2021 SERVICE TIME: 3:25 PM PRIMARY CARE PHYSICIAN: Matthieu Etienne MD SUBJECTIVE CHIEF COMPLAINT: Abdominal pain and bloating HISTORY OF PRESENT ILLNESS: Ms. Benavides is a 86 year old female with a PMH of HTN, chronic constipation, OA, depression/anxiety, HLD, anemia, and duodenal diverticulum who presents for virtual visit to discuss abdominal pain and bloating. I last saw the patient in July of 2020 - at that time her symptoms were stable. Today the patient and her two daughters present via virtual visit. They report that over the last year the patient's symptoms have intermittently re-presented. From June to August of 2021 she continued with bloating, but did not have any attacks that wake her from sleep. Then recently in the last few weeks these nightly attacks have started again. She describes the attacks as abdominal distention and hardness and bloating associated with chest pressure, anxiety, and hyperventilation. She was placed on Elavil nightly last year, and this did bring about improvement in nightly symptoms. She was also started on a low-FODMAP diet and followed this - they feel these changes did help with her symptoms until recently. I was able to review a CT scan that had been performed in September 2020 - aside from a distended gallbladder and small gallstones and a large colonic fecal burden, I did not appreciate any abnormalities. Of note, her last colonoscopy was performed over 10 years ago. I had discussed the patient and this case via telephone last week and recommended a c-scope. Today the patient's daughters state that she is scheduled for a c-scope and egd in November. She is scheduled to undergo CT with PO contrast in the near future as well. Of note, she was on flagyl for some time and this did help with symptoms. Her GI prescribed liquid Bentyl, which she will start in the next few days. Regarding BM - she has a bowel movement every few days. She takes daily herbal colon cleanse pill and Miralax PRN. Workup: - EGD (07/26/20): 1 cm sliding HH; HG 2 GEJ; duodenal diverticulum - Pathology: very mild chronic gastritis; GEJ with mild chronic inflammation; no esophageal abnormality on pathology - Ambulatory pH: [place]eester 6.6; SAP 98 for regurgitation - UGI: small sliding-type hiatal hernia with distal GERD; duodenal diverticulum - CT abd (09/2020): colonic fecal burden; distended gallbladder with small stones PAST MEDICAL HISTORY: History reviewed. No pertinent past medical history. 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 Floyd - GASTROESOPHAG REFLX TEST W/TELEMTRY PH ELTRD 07/26/2020 Demeester score 6.6; Dr. Flyod - REMOVAL OF OVARY/TUBE(S) - TMJ - TOTAL HIP REPLACEMENT FAMILY HISTORY: FAMILY HISTORY Problem Relation Age of Onset - other (anemia) Father SOCIAL HISTORY: Social History Tobacco Use - Smoking status: Never Smoker - Smokeless tobacco: Never Used Substance Use Topics - Alcohol use: Not on file - Drug use: Not on file MEDICATIONS: Current Outpatient Medications Medication Sig - amitriptyline (ELAVIL) 10 mg tablet Take 10 mg by mouth daily at bedtime. - traMADol (ULTRAM) 50 mg tablet Take 50 mg by mouth every 8 hours as needed. - ondansetron orally disintegrating (ZOFRAN ODT) 4 mg disintegrating tablet Take 1 tablet by mouth every 8 hours as needed for Nausea/Vomiting. (Patient not taking: Reported on 09/16/2021 ) - Bifidobacterium Infantis (ALIGN) 4 mg cap Take 1 capsule by mouth once daily. (Patient not taking: Reported on 08/07/2020 ) - ALPRAZolam (XANAX) 0.25 mg tablet TAKE 1 TO 2 TABLETS BY MOUTH AT BEDTIME NEEDED FOR SEVERE ANXIETY (Patient not taking: TAKE 1 TO 2 TABLETS BY MOUTH AT BEDTIME NEEDED FOR SEVERE ANXIETY) - metoclopramide HCl (REGLAN) 10 mg tablet TAKE 1 2 TO 1 (ONE HALF TO ONE) TABLET BY MOUTH 4 TIMES DAILY NEEDED FOR BLOATING OR NAUSEA (Patient not taking: TAKE 1 2 TO 1 (ONE HALF TO ONE) TABLET BY MOUTH 4 TIMES DAILY NEEDED FOR BLOATING OR NAUSEA) - pilocarpine (SALAGEN) 5 mg tablet Take 5 mg by mouth once daily. - sertraline (ZOLOFT) 25 mg tablet Take 25 mg by mouth once daily. (Patient not taking: Reported on 09/16/2021 ) - cyanocobalamin (VITAMIN B-12) 100 mcg tab Take 100 mcg by mouth once daily. (Patient not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
== END | disposition home or self-care (01) ==
LOC: RAD 09:17
PROVIDERS: PCP Family Medicine; Referring Provider Internal Medicine; Visit Provider Internal Medicine
DX: R14.0 Abdominal distension (gaseous) (principal); K21.9 Gastro-esophageal reflux disease without esophagitis
CPT/HCPCS: 74221

== ENCOUNTER → 2023-09-07 | Outpatient (CLI) | payer OTHER, SELFPAY ==
[2023-09-07 13:44] LABS: Hematocrit 34.4 % (37-47); Hemoglobin 11.1 g/dL (12.0-15.0); Mean Corp Hgb Conc 32.3 g/dL (32-36); Mean Corpuscular Hgb 28.8 pg (27.0-32.0); Mean Corpuscular Volume 89.4 fL (81-99); Platelet Count 236 K/mm3 (150-450); RBC Distribution Width CV 13.9 % (11.6-14.6); RBC Distribution Width SD 45.3 fl (35.1-43.9); Red Blood Count 3.85 M/mm3 (4.2-5.4); White Blood Count 3.9 K/mm3 (4.4-11.0)
[2023-09-07 14:08] LABS: ALB/GLOB Ratio 0.9 RATIO (0.9-2.4); AST(SGOT) 26 U/L (15-37); Alanine Aminotransfer ALT/SGPT 21 U/L (13-56); Albumin, Serum 3.7 g/dL (3.2-5.0); Alkaline Phosphatase 122 U/L (45-117); Anion Gap 7 (5-15); BUN 16 mg/dL (7-18); BUN/Creat Ratio 16.2 RATIO (10-20); Calcium,Total 9.3 mg/dL (8.5-10.1); Chloride 105 mmol/L (98-107); Cholesterol 245 mg/dL (200); Creatinine, Serum 0.98 mg/dL (0.55-1.02); EST Glomerular Filtration Rate 57 mL/min (>60); Est Glom Filt Rate - Afr Amer 69 mL/min (>60); Globulin 3.9 g/dL (2.2-4.2); Glucose 97 mg/dL (74-106); High Density Lipoprotein 71 mg/dL; Potassium 3.8 mmol/L (3.5-5.1); Protein, Total 7.6 g/dL (6.4-8.2); Sodium Level 140 mmol/L (136-145); Triglycerides 98 mg/dL; Very Low Density Lipoprotein 20 mg/dL (5-40)
== END | disposition home or self-care (01) ==
PROVIDERS: PCP Family Medicine; Referring Provider Psychiatry & Neurology Neurology; Visit Provider Psychiatry & Neurology Neurology
DX: E78.5 Hyperlipidemia, unspecified (principal)
CPT/HCPCS: 36415; 80053; 80061; 85027

== ENCOUNTER → 2024-03-08 | Outpatient (CLI) | payer OTHER, SELFPAY ==
[2024-03-08 11:25] LABS: Hematocrit 35.3 % (37-47); Hemoglobin 11.3 g/dL (12.0-15.0); Mean Corpuscular Hgb 28.9 pg (27.0-32.0); Mean Corpuscular Volume 90.3 fL (81-99); Mean Platelet Vol. 10.8 fl (6.2-12.0); Platelet Count 202 K/mm3 (150-450); RBC Distribution Width CV 14.1 % (11.6-14.6); RBC Distribution Width SD 46.6 fl (35.1-43.9); Red Blood Count 3.91 M/mm3 (4.2-5.4); White Blood Count 4.7 K/mm3 (4.4-11.0)
[2024-03-08 11:52] LABS: AST(SGOT) 35 U/L (15-37); Alanine Aminotransfer ALT/SGPT 26 U/L (13-56); Albumin, Serum 3.8 g/dL (3.2-5.0); Alkaline Phosphatase 122 U/L (45-117); Anion Gap 9 (5-15); BUN 17 mg/dL (7-18); BUN/Creat Ratio 15.9 RATIO (10-20); Calcium,Total 9.6 mg/dL (8.5-10.1); Chloride 106 mmol/L (98-107); Cholesterol 247 mg/dL (200); Creatinine, Serum 1.07 mg/dL (0.55-1.02); EST Glomerular Filtration Rate 52 mL/min (>60); Est Glom Filt Rate - Afr Amer 62 mL/min (>60); Glucose 98 mg/dL (74-106); High Density Lipoprotein 66 mg/dL; Protein, Total 7.8 g/dL (6.4-8.2); Sodium Level 141 mmol/L (136-145); Triglycerides 157 mg/dL; Very Low Density Lipoprotein 31 mg/dL (5-40)
== END | disposition home or self-care (01) ==
PROVIDERS: PCP Family Medicine; Referring Provider Psychiatry & Neurology Neurology; Visit Provider Psychiatry & Neurology Neurology
DX: E78.5 Hyperlipidemia, unspecified (principal)
CPT/HCPCS: 36415; 80053; 80061; 85027

== ENCOUNTER 2024-03-31 01:55 | Emergency (ER) | payer OTHER, SELFPAY ==
[2024-03-31] VITALS (11 sets, daily range): BP systolic 78–119; BP diastolic 54–88; PULSE 65–83; RESP 14–18; TEMP 36.1–36.8; O2SAT 96–100; BMI 25.0
--- NOTE | 2024-03-31 02:06 | CT_ITS ---
EXAM: CT CERVICAL SPINE WITHOUT INTRAVENOUS CONTRAST CLINICAL INDICATION: trauma TECHNIQUE: Helically acquired images were obtained of the cervical spine without intravenous contrast. 2D reformatted images were reviewed. This CT exam was performed using one or more of the following dose reduction techniques: automated exposure control, adjustment of the mA and/or kV according to patient size, and/or use of iterative reconstruction technique. RADIATION DOSE: CTDIvol = 12.88 mGy, DLP = 248.42 mGy-cm COMPARISON: No relevant prior studies available. FINDINGS: VERTEBRAE: Unremarkable. No fracture. No traumatic subluxation. No discrete lytic or blastic abnormality. Normal alignment. Normal craniocervical junction and cervicothoracic junction. DISCS/SPINAL CANAL/NEURAL FORAMINA: Degenerative changes of the intervertebral discs. No critical stenosis. SOFT TISSUES: Unremarkable. No prevertebral soft tissue swelling. VASCULATURE: Carotid artery calcifications. LYMPH NODES: Unremarkable. No cervical adenopathy. LUNG APICES: Unremarkable as visualized. Clear. CT/Spine Cervical without Contras IMPRESSION: 1. No acute injuries identified involving the cervical spine. 2. Degenerative changes. Electronically Signed: Cristian Mcdaniels MD at 2:45 EDT ,
--- NOTE | 2024-03-31 02:06 | RAD_ITS ---
EXAM: XR CHEST, 1 VIEW CLINICAL INDICATION: ams TECHNIQUE: Frontal view of the chest. COMPARISON: Single view chest 09/26/2018 FINDINGS: LUNGS AND PLEURAL SPACES: Unremarkable. No consolidation or edema. No pneumothorax. No effusion. HEART: Unremarkable. Cardiac silhouette not enlarged. MEDIASTINUM: Central airways and mediastinal contour are unremarkable. BONES/JOINTS: Unremarkable. No acute fracture. SOFT TISSUES: Unremarkable. RAD/Chest 1 View (Portable) IMPRESSION: No radiographic evidence of acute cardiopulmonary disease. Electronically Signed: Cristian Mcdaniels MD at 3:21 EDT ,
--- NOTE | 2024-03-31 02:06 | CT_ITS ---
EXAM: CT HEAD WITHOUT INTRAVENOUS CONTRAST CLINICAL INDICATION: trauma TECHNIQUE: Multiple axial images were obtained of the head without intravenous contrast. This CT exam was performed using one or more of the following dose reduction techniques: automated exposure control, adjustment of the mA and/or kV according to patient size, and/or use of iterative reconstruction technique. RADIATION DOSE: CTDIvol = 44.99 mGy, DLP = 829.85 mGy-cm COMPARISON: Head CT 09/26/2018 FINDINGS: BRAIN AND EXTRA-AXIAL SPACES: Diffuse cerebral volume loss. Periventricular small vessel ischemic changes. No intra- or extra-axial hemorrhage. No intracranial mass or mass effect. Posterior fossa structures are unremarkable. No hydrocephalus. Basal cisterns are patent. BONES/JOINTS: Unremarkable. No discrete lytic or blastic abnormalities. VASCULATURE: Vascular calcifications. SINUSES: Unremarkable as visualized. Clear. MASTOID AIR CELLS: Unremarkable. Clear. ORBITS: Visualized globes, extraocular muscles, optic nerves and retrobulbar fat appear unremarkable. OTHER FINDINGS: ASPECTS: 10. CT/Brain/Head without Contrast IMPRESSION: 1. No acute intracranial abnormalities. 2. Age-related changes. Electronically Signed: Cristian Mcdaniels MD at 2:42 EDT ,
--- NOTE | 2024-03-31 02:10 | EDS_ITS ---
HPI History of Present Illness Chief Complaint: Fall Informant: family and EMS Narrative Narrative: 88-year-old female presenting via EMS from home. Patient reportedly went to bed around 2230 hrs. Family went to check on her and found her on the floor between the bed and the wall. She was vomiting. EMS notes that she was able to answer some simple questions and then was shaking her head but because the vomiting that her on the side was unable to get much information from her. They did not see any significant outward signs of trauma. No blood in the emesis. Reportedly not on any blood thinners. EMS states that she seemed to be experiencing some pain in the left upper shoulder region during transport. The daughter with whom she lives arrived and she is able to tell me more details. She has a history of a hiatal hernia and frequently gets attacks. She states that the patient is seeing many doctors and no curative treatment has been found. She states that she will typically give her some Xanax and Bentyl and helps. She was having 1 of these attacks today. There is a first time she has had 1 for about a month. She gave her the medicines before bedtime and she fell asleep. Daughter wonders if she fell out of bed. Patient does have significant dementia per daughter. Family states that they believe that the hiatal hernia is sliding and that when it is up she experiences this discomfort and sometimes she has vasovagal syncope. They tell me that there is nothing that they can do for it and they have visited with many doctors for this. Apparently the patient had a episode while visiting her in the hospital recently. In May 2022 the patient visited with Dr. Barrett from surgery. There was discussion about potential surgery for gastric volvulus not hiatal hernia. This note does clarify a lot of issues regarding her evaluation up until that point. 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 It sounds like that may be intermittently happening as compared to the sliding hiatal hernia. [facility] Medical History Gastric volvulus Hiatal hernia Loss of hearing Wears glasses Anemia Syncope Belching Non-smoker History of pain when walking History of echocardiogram History of stress test Difficult intravenous access Injury of head and neck Fracture Hemophilia Arthritis Difficulty swallowing Dyslipidemia Demand ischemia Diastolic dysfunction Pulmonary hypertension Metabolic acidosis Hypokalemia Lactic acidosis Pancytopenia GERD (gastroesophageal reflux disease) Vasovagal syncope Home Medications ?Medication ?Instructions ?Recorded ?Last Taken ?Type acetaminophen 500 mg tablet 1,000 mg PO Q8H PRN PRN pain and 09/26/18 Unknown History fever kreacudz-danw-umat 8 mg-folic 400 1 tab PO DAILY SUPPLEMENT 09/26/18 09/25/18 History mcg-K 50 mcg-lutein 300 mcg tablet alprazolam 0.5 mg tablet (Xanax) 0.5 mg PO BID PRN Anxiety 12/08/21 12/09/21 11:00 History polyethylene glycol 3350 17 17 g PO Q10-15M PRN BOWEL PREP 12/08/21 Unknown History gram/dose oral powder (Miralax) tramadol 50 mg tablet 50 mg PO Q6H PRN Pain 12/08/21 Unknown History Brain Health Herbal Supplement 1 tab PO DAILY 07/08/22 Unknown History metronidazole 250 mg tablet 250 mg PO TID #21 tabs 04/29/23 Unknown Rx donepezil 5 mg tablet 5 mg PO QHS #30 tabs 03/08/24 Unknown Rx fenofibrate 54 mg tablet 54 mg PO DAILY #30 tabs 03/08/24 Unknown Rx furosemide 20 mg tablet 20 mg PO DAILY 30 days #30 tabs 03/08/24 Unknown Rx lisinopril 5 mg tablet 5 mg PO DAILY #30 tabs 03/08/24 Unknown Rx potassium chloride 10 mEq 10 meq PO DAILY #30 tabs 03/08/24 Unknown Rx tablet,extended release(part/cryst) dicyclomine 10 mg/5 mL oral 10 mg PO BID PRN UPSET 03/31/24 Unknown History solution Allergy/AdvReac Type Severity Reaction Status Date / Time aspirin AdvReac Unknown Verified 03/31/24 01:56 buspirone HCl (From BuSpar) AdvReac Unknown Verified 03/31/24 01:56 butalbital (From Esgic) AdvReac Unknown Verified 03/31/24 01:56 caffeine (From Norgesic) AdvReac Unknown Verified 03/31/24 01:56 diazepam (From Valium) AdvReac Unknown Verified 03/31/24 01:56 doxycycline AdvReac Unknown Verified 03/31/24 01:56 erythromycin base AdvReac Unknown Verified 03/31/24 01:56 linaclotide (From Linzess) AdvReac CRAMPS Verified 03/31/24 02:21 NSAIDS (Non-Steroidal AdvReac Unknown Verified 03/31/24 01:56 Anti-Inflamma orphenadrine citrate (From AdvReac Unknown Verified 03/31/24 01:56 Norgesic) Penicillins AdvReac Unknown Verified 03/31/24 01:56 promethazine HCl (From AdvReac Unknown Verified 03/31/24 01:56 Phenergan) Sulfa (Sulfonamide AdvReac Unknown Verified 03/31/24 01:56 Antibiotics) valdecoxib (From Bextra) AdvReac Unknown Verified 03/31/24 01:56 Family History Father Bleeding disorder Brother Heart disease Sister Hypertension Mother CVA (cerebral vascular accident) Surgical History History of esophagogastroduodenoscopy (EGD) History of left hip replacement Hx of removal of ovary history TMJ surgery Social History Smoking Status: Never smoker second hand exposure: No alcohol intake: never substance use type: does not use luis/pentecostalism: Restoration seatbelt use: always do you feel safe at home: Yes ROS ROS ED Review of Systems ROS Unobtainable: due to mental status EXAM Physical Exam Narrative Exam Narrative: Patient in a c-collar laying on her right side vomiting she is on a EMS soft blood Const Vital Signs: 03/31/24 01:55 03/31/24 01:55 03/31/24 02:55 Temperature 97 F L Temperature Source Temporal Pulse Rate 73 72 Respiratory Rate 18 18 Respiratory Effort Normal Non-Labored Respiratory Depth Normal Respiratory Pattern Normal Blood Pressure 115/88 H 119/76 Blood Pressure Mean 97 90 Pulse Ox 100 98 Oxygen Delivery Method Room Air Room Air Room Air 03/31/24 03:00 03/31/24 04:00 03/31/24 04:33 Temperature Temperature Source Pulse Rate 78 65 77 Respiratory Rate 16 18 16 Respiratory Effort Respiratory Depth Respiratory Pattern Blood Pressure 94/58 L 78/65 L 112/65 Blood Pressure Mean 70 69 80 Pulse Ox 99 98 Oxygen Delivery Method Room Air 03/31/24 04:54 03/31/24 05:00 Temperature Temperature Source Pulse Rate 69 66 Respiratory Rate 16 16 Respiratory Effort Respiratory Depth Respiratory Pattern Blood Pressure 103/86 H 118/72 Blood Pressure Mean 91 87 Pulse Ox Oxygen Delivery Method Positive well nourished and well developed General Appearance ED: well developed HEENT Reports normocephalic, head/scalp atraumatic and moist mucous membranes Eyes PERRL and EOMs intact bilaterally Neck no lymphadenopathy, supple and no JVD Chest Wall inspection of chest normal and palpation of chest normal Resp normal respiratory effort and clear to auscultation bilaterally Cardio regular rate, regular rhythm and no murmurs GI normal to inspection, nondistended, normoactive bowel sounds and non-tender Palpation: soft Back/Spine no CVA tenderness and normal ROM Extremity normal to inspection Extremity Narrative: No significant swelling or deformities are noted. No pain to palpation of the hips or of the arms. General Extremety ED: Negative for edema General Extremity: Negative for edema Neuro Sensorium / Orientation: alert Psych mental status grossly normal Mood & Affect: Negative for depressed or tearful Skin no rashes or lesions noted and no wounds MDM MDM MDM Narrative Medical decision making narrative: Differential diagnosis includes but not limited to skull fracture cervical spine fracture intracranial hemorrhage stroke dehydration electrolyte abnormalities hiatal hernia versus gastric volvulus vasovagal near syncope/syncope Patient was taken to CT scanner after a dose of Zofran. CT of the brain and cervical spine was obtained. No obvious fractures or intracranial hemorrhage was noted. Patient was removed from the c-collar with as best clearance as I could. She was getting more worked up about having the collar on and she was the spasms and vomiting. Family states this is very typical for how she acts during these attacks. Patient received an IM dose of Bentyl. Basic blood work was obtained which shows a white count of 8.4 hemoglobin 12.6 platelet count of 248. Troponin is 11 liver lipase within normal limits BUN is 16 creatinine 1.18 electrolytes are within normal limits. My independent interpretation of the chest x-ray is no acute fracture no pneumothorax. I do not see a hiatal hernia but the family tells me that it has been sliding. Patient got up he was able to ambulate at baseline per family for nursing. Patient began to complain of pain in the left shoulder. Family asked if I could come back into the room and evaluate the shoulder. Informed them that EMS had mentioned that she had pain in the left shoulder and that I did not see anything broken or dislocated. They tell me that she has been diagnosed with frozen shoulder. They note limited range of motion. I do not see any swelling or bruising. They got her back to the bed patient began again experiencing the spasms. Patient then apparently had a syncopal episode which was most likely vagal. She appeared initially pale and diaphoretic. She became bradycardic on my auscultation. On the monitor she appeared to be in sinus bradycardia with clear P waves. Episode lasted about 45 seconds and then she started to come back. She was placed on the monitor noted to be hypotensive and in sinus bradycardia in the 40s. Family states that she typically sleeps for a while after these episodes. Sometimes she has a bowel movement. She felt like she needed to have a bowel movement was placed on the bedpan and the patient began to experience a vagal episode again. This is exactly what the patient describes at home and they note that they have been told that this is vasovagal syncope. I informed family that the patient can be observed here for a while we will see how she recovers as I do not think she would be appropriate for discharge at this time. History & Record Review Discussion w/independent historian: EMS personnel, Patient and Family Lab Data Attestation: I reviewed the patient's lab results. Labs: Laboratory Results - last 24 hr 03/31/24 02:45 WBC 8.4 RBC 4.24 Hgb 12.6 Hct 37.4 MCV 88.2 MCH 29.7 MCHC 33.7 RDW Std Deviation 45.9 H RDW Coeff of Jaclyn 14.3 Plt Count 248 MPV 10.5 Immature Gran % (Auto) 0.400 Neut % (Auto) 73.1 H Lymph % (Auto) 18.0 L Boundary % (Auto) 6.8 Eos % (Auto) 1.1 Baso % (Auto) 0.6 Absolute Neuts (auto) 6.2 Absolute Lymphs (auto) 1.51 Nucleated RBC % 0 PT 12.7 INR 1.0 APTT 32.1 Sodium 140 Potassium 3.5 Chloride 106 Carbon Dioxide 25.0 Anion Gap 9 BUN 16 Creatinine 1.18 H Estim Creat Clear Calc 30.25 Est GFR (MDRD) Af Amer 56 L Est GFR (MDRD) Non-Af 46 L BUN/Creatinine Ratio 13.6 Glucose 121 H Calcium 9.2 Total Bilirubin 0.50 Direct Bilirubin 0.19 AST 31 ALT 23 Alkaline Phosphatase 114 Troponin I High Sens 11 Total Protein 7.3 Albumin 3.8 Globulin 3.5 Lipase 25 Radiography Diagnostic Testing: Clinical Impression(s) from Imaging Studies Brain CT 03/31/24 02:06 IMPRESSION: 1. No acute intracranial abnormalities. 2. Age-related changes. Electronically Signed: Cristian Mcdaniels MD at 2:42 EDT Reading Location ID and State: [facility] / [place] Tel , Service support , Cervical Spine CT 03/31/24 02:06 IMPRESSION: 1. No acute injuries identified involving the cervical spine. 2. Degenerative changes. Electronically Signed: Cristian Mcdaniels MD at 2:45 EDT Reading Location ID and State: [facility] / [place] Tel , Service support , Chest X-Ray 03/31/24 02:06 IMPRESSION: No radiographic evidence of acute cardiopulmonary disease. Electronically Signed: Cristian Mcdaniels MD at 3:21 EDT Reading Location ID and State: [facility] / [place] Tel , Service support , Critical Care Time Critical Care Time: Yes Critical care time (excluding procedures): 30-74 minutes (35 min), Including time spent:, Discussing w/Patient &/or Family/Gizzard Peeler and Performing Direct Patient Care at Bedside Discharge Plan Triage Chief Complaint: Fall ED Provider: Eligio Scott Dx/Rx/DC Orders Clinical Impression: Syncope, vasovagal, Abdominal pain, Dementia, Nausea & vomiting Instructions: Understanding Vasovagal Syncope, ED Hiatal Hernia Prescriptions: No Action Brain Health Herbal Supplement 1 tab PO DAILY metronidazole 250 mg tablet 250 mg PO TID Qty: 21 0RF donepezil 5 mg tablet 5 mg PO QHS Qty: 30 7RF fenofibrate 54 mg tablet 54 mg PO DAILY Qty: 30 7RF lisinopril 5 mg tablet 5 mg PO DAILY Qty: 30 7RF furosemide 20 mg tablet 20 mg PO DAILY 30 Days Qty: 30 7RF potassium chloride 10 mEq tablet,ER particles/crystals 10 meq PO DAILY Qty: 30 7RF hqukhnpc-nmj-egpn-FA-vit K-lut 1 EACH tablet 1 tab PO DAILY acetaminophen 500 MG tablet 1,000 mg PO Q8H PRN PRN (Reason: pain and fever) tramadol 50 mg Tablet 50 mg PO Q6H PRN (Reason: Pain) alprazolam [Xanax] 0.5 mg Tablet 0.5 mg PO BID PRN (Reason: Anxiety) polyethylene glycol 3350 [Miralax] 17 gram/dose powder 17 g PO Q10-15M PRN (Reason: BOWEL PREP) dicyclomine 10 mg/5 mL solution 10 mg PO BID PRN (Reason: UPSET) Primary Care Provider: Robinson Young Referrals: Robinson Young, [Primary Care Provider] - As soon as possible Activity Restrictions/Additional Instructions: You may wish to revisit with surgery/gastroenterology. Print Language: Italian Disposition Disposition: Home, Self Care
[2024-03-31] MEDS: Ondansetron 4 MG/2 ML Vial IV (02:15)
[2024-03-31 02:54] LABS: Absolute Lymphocyte Count 1.51 X10^3/uL (0.83-4.51); Absolute Neutrophil Count 6.2 X10^3/uL (2.0-7.7); Basophil# 0.05 X10^3/uL; Basophil% 0.6 % (0-1); Eosinophil# 0.09 X10^3/uL; Eosinophils% 1.1 % (0-5); Hematocrit 37.4 % (37-47); Hemoglobin 12.6 g/dL (12.0-15.0); Lymphocyte # 1.51 X10^3/ul (0.83-4.51); Mean Corp Hgb Conc 33.7 g/dL (32-36); Mean Corpuscular Hgb 29.7 pg (27.0-32.0); Mean Corpuscular Volume 88.2 fL (81-99); Mean Platelet Vol. 10.5 fl (6.2-12.0); Monocyte# 0.57 X10^3/uL; Monocyte% 6.8 % (0-10); NRBC Flagged by Analyzer 0 % (0-5); Neutrophil # 6.16 X10^3/uL (2.7-7.7); Neutrophil % 73.1 % (47-70); Platelet Count 248 K/mm3 (150-450); RBC Distribution Width CV 14.3 % (11.6-14.6); RBC Distribution Width SD 45.9 fl (35.1-43.9); Red Blood Count 4.24 M/mm3 (4.2-5.4); White Blood Count 8.4 K/mm3 (4.4-11.0)
[2024-03-31 03:05] LABS: Prothrombin Time (Protime)PT. 12.7 SECONDS (11.7-14.9)
[2024-03-31 03:06] LABS: Partial Thromboplast Time 32.1 Seconds (24.1-36.2)
[2024-03-31 03:13] LABS: AST(SGOT) 31 U/L (15-37); Alanine Aminotransfer ALT/SGPT 23 U/L (13-56); Albumin, Serum 3.8 g/dL (3.2-5.0); Alkaline Phosphatase 114 U/L (45-117); Anion Gap 9 (5-15); BUN 16 mg/dL (7-18); BUN/Creat Ratio 13.6 RATIO (10-20); Bilirubin, Direct 0.19 mg/dL (0.00-0.30); Calcium,Total 9.2 mg/dL (8.5-10.1); Chloride 106 mmol/L (98-107); Creatinine, Serum 1.18 mg/dL (0.55-1.02); EST Glomerular Filtration Rate 46 mL/min (>60); Est Glom Filt Rate - Afr Amer 56 mL/min (>60); Estimated Creatinine Clearance 30.25 ml/min; Globulin 3.5 g/dL (2.2-4.2); Glucose 121 mg/dL (74-106); Lipase 25 U/L (13-75); Potassium 3.5 mmol/L (3.5-5.1); Protein, Total 7.3 g/dL (6.4-8.2); Sodium Level 140 mmol/L (136-145); Troponin-I HS 11 pg/mL (3.0-54.0)
[2024-03-31] MEDS: Dicyclomine 20 MG/2 ML Vial 10 MG IM (03:25)
--- NOTE | 2024-03-31 04:21 | ED.RN ---
0408 PT WAS WALKING BACK TO THE BED WITH MD AT THE BEDSIDE,WHEN THE PT HAD PAIN IN HER BODY AND HAD SYNCOPAL EPISODE. PT IN BED AND PLACED ON MONITOR.PT'S LIP BLUE,CODE BLUE CALLED.PER PT'S DAUGHTER SHE DOES THIS AT HOME.CODE BLUE CANCELLED. PT RESPONDING. PER ANALISA PT HAS VASOVAGAL SYNCOPE EPISODES AT HOME. 411 PT HAS TO GO HAVE A BM.PT PLACED ON BEDPAN AND PT WAS PUSHING STOOL OUT AND HAD SYNCOPAL EPISODE AGAIN.PT'S SBP 60-70'S,MD AWARE.PT AWAKENS IN BETWEEN C/O BEING ON THE BEDPAN. FAMILY MADE AWARE THAT WE CAN NOT GET HER UP TO THE BSC FOR SAFETY REASON'S.78/65-62-18-98 PERCENT.
--- NOTE | 2024-03-31 04:48 | ED.RN ---
Pt removed from the bedpan.pt did not go to the bathroom.Pt burping and moaning about her gastric reflux. Md aware of daughter's request for IV fluids. Md aware of daughter's request. Pt's labs are WNL.pt pulled up in bed and repositioned to her side.
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
--- NOTE | 2024-03-31 07:10 | ED.RN ---
pt's daughters remain at her side.Pt appears to be asleep at this time.Family wants more time having her monitored.Continue monitoring.
== END 2024-03-31 09:11 | disposition home or self-care (01) ==
PROVIDERS: Emergency Provider Emergency Medicine; PCP Family Medicine; Visit Provider Emergency Medicine
DX: R55 Syncope and collapse (principal); F03.90 Unspecified dementia, unspecified severity, without behavioral disturbance, psychotic disturbance, mood disturbance, and anxiety; M25.512 Pain in left shoulder; E78.5 Hyperlipidemia, unspecified; R11.2 Nausea with vomiting, unspecified; R10.9 Unspecified abdominal pain; Z79.899 Other long term (current) drug therapy; Z96.642 Presence of left artificial hip joint
CPT/HCPCS: 70450; 71045; 72125; 80048; 80076; 83690; 84484; 85025; 85610; 85730; 96372; 96374; 99285; A4216; J2405

== ENCOUNTER → 2024-09-21 | Outpatient (CLI) | payer OTHER, SELFPAY ==
--- NOTE | 2024-09-21 11:55 | EKG12_ITS ---
Test Reason : ROUTINE Blood Pressure : */* mmHG Vent. Rate : 72 BPM Atrial Rate : 72 BPM P-R Int : 154 ms QRS Dur : 82 ms QT Int : 390 ms P-R-T Axes : 61 16 40 degrees QTcB Int : 427 ms Normal sinus rhythm Normal ECG Confirmed by DENILSON CASTILLO, DAVID ([id number]), editor continuity and script RICHARD FERGUSON ([id number]) on 09/22/2024 9:30:55 AM Referred By: Roderick Moralez Confirmed By: DAVID OREILLY MD
[2024-09-21 12:08] LABS: ALB/GLOB Ratio 1.3 RATIO (0.9-2.4); AST(SGOT) 33 U/L (<=31); Alanine Aminotransfer ALT/SGPT 16 U/L (<=34); Albumin, Serum 4.2 g/dL (3.4-4.8); Alkaline Phosphatase 114 U/L (35-104); Anion Gap 12 (5-15); BUN 15 mg/dL (4-19); BUN/Creat Ratio 14.6 RATIO (10-20); Calcium,Total 9.3 mg/dL (7.6-11.0); Carbon Dioxide 22.1 mmol/L (21.0-32.0); Chloride 106 mmol/L (98-108); Cholesterol 267 mg/dL (<=200); Creatinine, Serum 1.05 mg/dL (0.70-1.20); EST Glomerular Filtration Rate 51 (>60); Globulin 3.1 g/dL (2.2-4.2); Glucose 93 mg/dL (70-99); High Density Lipoprotein 64 mg/dL; Low Density Lipoprotein Calc. 181 mg/dL; Potassium 4.8 mmol/L (3.3-5.1); Protein, Total 7.3 g/dL (5.9-8.4); Sodium Level 140 mmol/L (133-145); Total Bilirubin 0.31 mg/dL (0.00-1.30); Triglycerides 111 mg/dL; Very Low Density Lipoprotein 22 mg/dL (5-40); cholesterol:hdl ratio screen 4.19
== END | disposition home or self-care (01) ==
PROVIDERS: PCP Family Medicine; Referring Provider Psychiatry & Neurology Neurology; Visit Provider Psychiatry & Neurology Neurology
DX: I49.9 Cardiac arrhythmia, unspecified (principal); E78.5 Hyperlipidemia, unspecified
CPT/HCPCS: 36415; 80053; 80061; 93005